=== PATIENT | male | born 1960 | race Caucasian/White ===

== ENCOUNTER 2020-11-08 07:55 | Outpatient (CLI) | payer BC, SELFPAY ==
--- NOTE | ~2020-11-08 | CT_ITS ---
EXAMINATION:CT lung screening DATE: 11/08/2020 08:12 INDICATION: Personal history of tobacco dependence. Current smoker with 54 pack year history. TECHNIQUE: Computed tomography (CT) of the chest was performed without intravenous contrast. Automate d exposure control and iterative reconstruction technique were employed. The dose-length product (DLP ) was 78.99 mGy-cm. COMPARISON: Chest CT 12/14/2017 FINDINGS: There is stable mild scarring at the lung apices. There is mild emphysema. No pleural effus ion. The heart size is normal. There are coronary artery calcifications. No pericardial effusion. The re is a 9 mm cyst in the liver. There is mild thoracic spondylosis. IMPRESSION: 1. Lung-RADS category 2: Benign appearance or behavior. Continue annual screening with noncontrast lo w-dose chest CT in 12 months. Reviewed, dictated and finalized at location A. IMPRESSION: 1. Lung-RADS category 2: Benign appearance or behavior. Continue annual screeni ng with noncontrast low-dose chest CT in 12 months.
== END 2020-11-08 07:56 | disposition home or self-care (01) ==
PROVIDERS: PCP Internal Medicine; Visit Provider Internal Medicine Critical Care Medicine
DX: Z12.2 Encounter for screening for malignant neoplasm of respiratory organs (principal); Z87.891 Personal history of nicotine dependence
CPT/HCPCS: 71271

== ENCOUNTER 2021-11-14 09:18 | Outpatient (CLI) | payer BC, SELFPAY ==
--- NOTE | ~2021-11-14 | CT_ITS ---
EXAMINATION: CT lung screening DATE: 11/14/2021 09:37 INDICATION: Personal history of nicotine dependence, current smoker with 54 pack year history TECHNIQUE: Computed tomography (CT) of the chest was performed without intravenous contrast. The dose -length product (DLP) was 78.93 mGy-cm. Automated exposure control and iterative reconstruction techn ique were employed. COMPARISON: 11/08/2020 FINDINGS: There is mild emphysema. Scarring is noted in the lung apices. The lungs are free of acute opacities. There is mild atelectasis of the lingula. No pleural effusion or pneumothorax is identifie d. No pathologically enlarged thoracic lymph nodes are identified. The heart size is normal. Calcifie d coronary artery atherosclerosis is noted. There is a 9 mm cyst of the liver. There is mild thoracic spondylosis. IMPRESSION: 1. Lung-RADS category 1: Negative. Continue annual screening with noncontrast low-dose chest CT in 12 months. Reviewed, dictated and finalized at location B. IMPRESSION: 1. Lung-RADS category 1: Negative. Continue annual screening with noncontrast l ow-dose chest CT in 12 months.
== END 2021-11-14 09:19 | disposition home or self-care (01) ==
PROVIDERS: PCP Internal Medicine; Visit Provider Nurse Practitioner Family
DX: Z12.2 Encounter for screening for malignant neoplasm of respiratory organs (principal); Z72.0 Tobacco use
CPT/HCPCS: 71271

== ENCOUNTER → 2022-12-02 10:36 | Outpatient (CLI) | payer OTHER, SELFPAY ==
--- NOTE | ~2022-12-02 | CT_ITS ---
CT Scan of the Chest without Contrast: Clinical Indication: Lung cancer screening, personal history of tobacco dependence Technique: Contiguous sections were acquired throughout the chest without intravenous contrast. Dose reduction technique was used on this scan by utilizing automated exposure control and iterative recon struction technique. The dose-length product (DLP) was 60.61 mGy-cm. COMPARISON: 11/14/2021 and 12/14/2017 Findings: There is no evidence of any significant mediastinal, hilar or axillary lymphadenopathy. The mediastin al soft tissues appear normal. There is no evidence of pleural or pericardial effusion. Stable biapical scarring noted. No suspicious pulmonary nodule identified. Images through the upper abdomen reveal no abnormalities. Impression: Lung-RADS1: Negative. [address] advised. Reviewed, dictated and finalized at location . Impression: Lung-RADS1: Negative. [address] advised.
== END ==
PROVIDERS: PCP Family Medicine; Visit Provider Internal Medicine Critical Care Medicine
DX: Z12.2 Encounter for screening for malignant neoplasm of respiratory organs (principal); F17.210 Nicotine dependence, cigarettes, uncomplicated
CPT/HCPCS: 71271

== ENCOUNTER 2023-12-14 02:25 | Emergency (ER) | payer OTHER, SELFPAY ==
[2023-12-14] VITALS (10 sets, daily range): BP systolic 132–151; BP diastolic 75–94; PULSE 104–120; RESP 13–35; TEMP 36.6; O2SAT 93–100
--- NOTE | ~2023-12-14 | XR_ITS ---
EXAMINATION: XR chest 1V portable DATE: 12/14/2023 03:18 INDICATION: Dyspnea. TECHNIQUE: A single frontal view of the chest was obtained on 2 radiographs. COMPARISON: Chest CT 12/14/2023 FINDINGS: There is mild scarring at the lung apices. No pleural effusion or pneumothorax. The heart s ize is normal. IMPRESSION: 1. Mild scarring at the lung apices. Reviewed, dictated and finalized at location E.
--- NOTE | ~2023-12-14 | CT_ITS ---
EXAMINATION: CTA chest PE protocol DATE: 12/14/2023 03:59 INDICATION: Shortness of breath. TECHNIQUE: Computed tomography angiography (CTA) of the chest was performed with 100 mL Omnipaque-350 intravenous contrast timed to evaluate the pulmonary arteries. Coronal maximum intensity projection 3D-reconstructions were created by the technologist. Automated exposure control and iterative reconst ruction technique were employed. The dose-length product was 254.91 mGy-cm. COMPARISON: None. FINDINGS: There is mild scarring at the lung apices. There is mild emphysema. There is mild atelectas is bilaterally. No pleural effusion. The heart size is normal. No pericardial effusion. There is no p ulmonary embolus. There is a small sliding hiatal hernia. There are cysts in the liver measuring up t o 12 mm. There is mild thoracic spondylosis. There is mild chronic anterior wedging of multiple verte bral bodies. IMPRESSION: 1. No pulmonary embolus. 2. Mild emphysema. 3. Small sliding hiatal hernia. Reviewed, dictated and finalized at location E.
--- NOTE | 2023-12-14 02:32 | ECG_ITS ---
SEE SCANNED COPY FOR CONFIRMED REPORT MTDD
[2023-12-14 02:55] LABS: Basophils Percent Auto 0.6 % (0.2-1.2); Eosinophils Absolute Auto 0.1 K/mm3 (0-0.3); Eosinophils Percent Auto 1.8 % (0-4.4); Hematocrit 45.4 % (42.0-52.0); Hemoglobin 15.2 g/dL (14.0-18.0); Immature Granulocyte Absolute 0.04 K/mm3 (0.00-0.031); Immature Granulocyte Percent A 0.6 % (0-0.5); Lymphocytes Absolute Auto 0.89 K/mm3 (0.9-3.2); Lymphocytes Percent Auto 13.2 % (18.3-44.2); Mean Corpuscular HGB Conc 33.5 g/dl (32-36); Mean Corpuscular Hemoglobin 31.1 pg (26-34); Mean Corpuscular Volume 92.8 fl (80-100); Mean Platelet Volume 9.7 fl (7.4-10.4); Monocytes Absolute Auto 0.8 K/mm3 (0.1-0.6); Monocytes Percent Auto 11.6 % (2.6-8.5); Neutrophils Absolute Auto 4.9 K/mm3 (1.3-6.7); Neutrophils Percent Auto 72.2 % (45.5-73.1); Platelet Count Result 168 k/mm3 (150-375); Red Blood Count 4.89 M/mm3 (4.6-6.20); Red Cell Distribution Width 14.1 % (11.5-14.5); White Blood Count 6.7 K/mm3 (4.5-10.0)
[2023-12-14] MEDS: IPRATROPIUM 0.5 MG/ALBUTEROL SULFATE 2.5 MG AMPUL.NEB 3 ML INHALATION (03:02)
[2023-12-14 03:06] LABS: Alanine Aminotransferase 21 U/L (6-50); Alkaline Phosphatase 63 U/L (38-126); Anion Gap 5 mmol/L (4-12); Aspartate Amino Transferase 21 U/L (17-59); Bilirubin,Total 0.5 mg/dL (0.2-1.3); Blood Urea Nitrogen 16 mg/dL (9-20); Calcium 9.7 mg/dL (8.4-10.2); Carbon Dioxide 25 mmol/L (22-30); Chloride 107 mmol/L (98-107); Estimated CRCL calculation 72 ml/min; Estimated Glomerular Filt Rate > 60; Glucose 110 mg/dL (65-110); Magnesium 1.9 mg/dL (1.6-2.3); Potassium 3.9 mmol/L (3.4-5.0); Sodium 137 mmol/L (137-145)
[2023-12-14 03:09] LABS: Lactic Acid Reflex 0.8 mmol/L (0.7-2.0)
[2023-12-14 03:10] LABS: Alveolar/Arterial O2 Gradient 46.8 mmHg; Base Excess ABG -2.4 mEq/l (+/-2.0); Fractional Inspired Oxygen 21 %; HCO3 ABG 19.4 mEq/l (22.0-26.0); Oxygen Content ABG 20.2 %vol (16.0-22.0); Oxygen Saturation ABG 95.4 % (95.0-100.0); Oxyhemoglobin 88.8 % THb (90.0-100.0); PCO2 ABG 27.1 mmHg (35.0-45.0); PO2 ABG 70.5 mmHg (80.0-100.0); PO2 FiO2 Ratio Arterial Blood 3.36 %; Total Hemoglobin 16.2 g/dL (12.0-18.0); pH ABG 7.473 (7.350-7.450)
[2023-12-14 03:12] LABS: Device ROOM AIR; Modified Allen's Test Pass; Site Drawn RIGHT RADIAL
[2023-12-14 03:14] LABS: Partial Thromboplastin Time 32.9 Seconds (22.3-36.8); Prothrombin Time 13.6 Seconds (11.1-14.7)
[2023-12-14 03:17] LABS: NT Pro B Type Natriuretic Pept 45 pg/mL (19.9-100); Troponin I < 0.012 ng/mL (0.000-0.034)
--- NOTE | 2023-12-14 03:27 | ED.GENADULT ---
HPI - General Adult General Chief complaint: Shortness of Breath/Dyspnea Stated complaint: difficulty breathing Time Seen by Provider: 12/14/23 02:29 History of Present Illness HPI narrative: Patient is 61-year-old gentleman presents emergency department with chief complaint shortness of breath. Patient reports that he has history of COPD he also has a remote history of a pulmonary embolism the patient states that he was exposed to some smoke it making machine and since then has had some sinus drainage and has had a cough that has been productive the patient states that he is not having any chest pain with this did reports taking some sinus medication the patient reports this evening he had a coughing fit that was unable to catch his breath afterwards patient was given steroids and breathing treatment by EMS and does report that he started to feel little better. Related Data Home Medications Medication Instructions Recorded Confirmed latanoprost (PF) 0.005 % eye drops 1 drop ophthalmic (eye) DAILY 07/18/19 11/04/23 Allergies Allergy/AdvReac Type Severity Reaction Status Date / Time adhesive tape Allergy Unknown BLISTERS/ Verified 12/14/23 02:32 SKIN PEELING OFF meperidine Allergy Unknown Unknown Verified 12/14/23 02:32 Review of Systems Review of Systems: A 10 system review of systems was completed on the patient and is negative except for what is stated in the HPI. Nursing and ancillary documentation was reviewed. [facility] Past Medical History Medical History Abnormal chest CT COPD (chronic obstructive pulmonary disease) Dyslipidemia Family history of cardiovascular disease GERD (gastroesophageal reflux disease) History of tobacco abuse IBS (irritable bowel syndrome) Lung nodules Overactive bladder Prostate cancer Prostatectomy 2008, with recurrence 2012-treated with radiation Surgical History Surgical History H/O colonoscopy H/O prostatectomy 2008 with recurrence 2011 treated with radiation History of inguinal hernia repair Family History Family History Mother Hypertension Carcinoma of colon, Onset Age: 73 Family history of primary malignant neoplasm of liver Sibling , CVA occurred with CABG Hypertension Family history of diabetes mellitus in first degree relative Family history of renal failure Diabetes mellitus Family history of kidney disease Cerebrovascular accident Father Cerebrovascular accident Acute myocardial infarction Diabetes mellitus Social History Social History Smoking packs per day: 1.5 Smoking cigarettes per day: 30.0 Years smoked: 36 Smoking pack-years: 54.00 Smoking status: Current every day smoker (cutting back to 1 PPD (down from 2 PPD) ) Tobacco type: cigarettes Second hand tobacco smoke exposure: Yes Alcohol intake: current Substance use: never Lack of Transportation: No Lack of Food: Never True Current Housing: I Have Housing Concerned About Future Housing: No Difficulty Paying Gas/Electric Bills: No Difficulty Paying for Meds: No Currently Unemployed: No Education: High School Diploma/GED Difficulty w/ Childcare or Family Care: No Living arrangements: with family Occupation/Education: occupation 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 Gender identity (if verbalized by the patient): Male Agree to blood products: Yes Exam Narrative: GENERAL: Well-appearing, well-nourished, and in no acute distress. HEAD: Normocephalic, atraumatic. EYES: PERRLA and EOMI. ENT: Nares clear, no rhinorrhea or epistaxis. Mucous membranes moist. NECK: Supple. CHEST: Clear to auscultation. No respiratory distress. HEART: Regular
[2023-12-14 03:31] LABS: Influenza A QL RT-PCR Negative (Negative); Influenza B QL RT-PCR Negative (Negative); RSV RNA, RT-PCR Negative (Negative); SARS-CoV-2 RNA PCR Negative (Negative)
[2023-12-14 03:37] LABS: Procalcitonin 0.1 ng/mL
--- NOTE | 2023-12-14 04:51 | PC.NURSE ---
per edp dr. cosme pt oxygen saturation was assessed during ambulation. Upon patient ambulation pt oxygen saturation was 96%. Pt denied chest pressure/ pain or shortness of breath during ambulation. edp dr. cosme made aware. pt ambulated with a steady unassisted gait.
== END 2023-12-14 05:14 | disposition home or self-care (01) ==
PROVIDERS: Emergency Provider Emergency Medicine; PCP Family Medicine
DX: J44.1 Chronic obstructive pulmonary disease with (acute) exacerbation (principal); Z20.822 Contact with and (suspected) exposure to COVID-19; E78.5 Hyperlipidemia, unspecified; K21.9 Gastro-esophageal reflux disease without esophagitis; K58.9 Irritable bowel syndrome, unspecified; N32.81 Overactive bladder; F17.210 Nicotine dependence, cigarettes, uncomplicated; Z85.46 Personal history of malignant neoplasm of prostate; Z86.711 Personal history of pulmonary embolism; Z90.79 Acquired absence of other genital organ(s); I45.10 Unspecified right bundle-branch block; R00.0 Tachycardia, unspecified
CPT/HCPCS: 36415; 36600; 71045; 71275; 80053; 82805; 83605; 83735; 83880; 84145; 84484; 85025; 85610; 85730; 87637; 93005; 94640; 99284; Q9967

== ENCOUNTER 2023-12-25 03:57 | Inpatient (IN) | payer OTHER, SELFPAY ==
[2023-12-25] VITALS (7 sets, daily range): BP systolic 103–134; BP diastolic 62–76; PULSE 80–109; RESP 14–18; TEMP 36.2–37.4; O2SAT 92–99
--- NOTE | ~2023-12-25 | CT_ITS ---
CT of the Abdomen and Pelvis: Indication: Diverticulitis Technique: 2.5 mm axial scans were obtained through the abdomen and pelvis following intravenous adm inistration of 100 cc of Omnipaque 350. Dose reduction technique was used on this scan by utilizing a utomated exposure control and iterative reconstruction technique. The dose-length product (DLP) was 2 62.57 mGy-cm. COMPARISON: 12/25/2023 Findings: Scans through the lung bases are unremarkable. Scattered small hepatic cysts are present. The spleen, pancreas, gallbladder, adrenals and kidneys ar e within normal limits. There are atherosclerotic calcifications of the aorta. No lymphadenopathy. Again identified is wall thickening of the distal sigmoid colon/proximal rectum with pericolonic infl ammatory change. There are small bubbles of free air likely (axial image 148 [id number]), compatible with pr obable microperforation. No abscess or bowel obstruction. Images through the pelvis were performed. Urinary bladder unremarkable. Status post prostatectomy. No pelvic mass seen. Impression: Findings again suggestive of distal sigmoid diverticulitis, now with small bubbles of free air locall y, compatible with interval microperforation. No abscess or bowel obstruction. Ischemic bowel remains a potential alternative diagnostic consideration. Reviewed, dictated and finalized at [facility]. Impression: Findings again suggestive of distal sigmoid diverticulitis, now with small bubb les of free air locally, compatible with interval microperforation. No abscess or bowel obstruction. Ischemic bowel remains a potential alternative diagnostic consideration.
--- NOTE | ~2023-12-25 | CT_ITS ---
CT of the Abdomen and Pelvis: Indication: Abdominal pain Technique: 2.5 mm axial scans were obtained through the abdomen and pelvis following intravenous adm inistration of 100 cc of Omnipaque 350. Dose reduction technique was used on this scan by utilizing a utomated exposure control and iterative reconstruction technique. The dose-length product (DLP) was 2 79.93 mGy-cm. Findings: Scans through the lung bases are unremarkable. Several small hepatic cysts are present. The spleen, pancreas, gallbladder, adrenals and kidneys are within normal limits. There are atherosclerotic calcifications of the aorta. No lymphadenopathy. There is probable mild wall thickening and mild pericolonic inflammatory change of the sigmoid colon. Several small bubbles of intravascular air present, likely within venous structures (axial image 46, 101).. Images through the pelvis were performed. Urinary bladder unremarkable. Status post prostatectomy. No pelvic mass seen. No ascites. Impression: Wall thickening and mild pericolonic infiltrative changes; several small bubbles of intravenous air i n the abdomen. Correlate for diverticulitis versus possibility of ischemic bowel. Reviewed, dictated and finalized at location . Impression: Wall thickening and mild pericolonic infiltrative changes; several small bubble s of intravenous air in the abdomen. Correlate for diverticulitis versus possib ility of ischemic bowel.
[2023-12-25] MEDS: ONDANSETRON INJ 4 MG/2 ML VIAL IV PUSH (04:34)
[2023-12-25] MEDS: SODIUM CHLORIDE 0.9% IV 1,000 ML 999 ML IV CONT (04:34)
[2023-12-25] MEDS: HYDROmorphone HCL INJ (*CRX) 1 MG/ML SYR IV PUSH ×2 (04:34→12:22)
--- NOTE | 2023-12-25 04:43 | ED.GENADULT ---
HPI - General Adult General Chief complaint: Abdominal Pain Stated complaint: abdominal pain, diarrhea Time Seen by Provider: 12/25/23 04:05 History of Present Illness HPI narrative: patient is a 63-year-old gentleman who presents emergency department with chief complaint of abdominal pain. Patient reports that yesterday started having pain throughout his abdomen patient reports that he has had some diarrhea with this as well the patient reports that he has had a prior history of pancreatitis and also prior history of hernia repair. The patient reports the pain is not improved by anything and reports that it is worsened by move Related Data Home Medications Medication Instructions Recorded Confirmed latanoprost (PF) 0.005 % eye drops 1 drop ophthalmic (eye) DAILY 07/18/19 12/21/23 Allergies Allergy/AdvReac Type Severity Reaction Status Date / Time adhesive tape Allergy Unknown BLISTERS/ Verified 12/21/23 09:51 SKIN PEELING OFF meperidine Allergy Unknown Unknown Verified 12/21/23 09:51 morphine Allergy Itching Verified 12/25/23 05:59 Review of Systems Review of Systems: A 10 system review of systems was completed on the patient and is negative except for what is stated in the HPI. Nursing and ancillary documentation was reviewed. [facility] Past Medical History Medical History Abnormal chest CT COPD (chronic obstructive pulmonary disease) Dyslipidemia Family history of cardiovascular disease GERD (gastroesophageal reflux disease) History of tobacco abuse IBS (irritable bowel syndrome) Lung nodules Overactive bladder Prostate cancer Prostatectomy 2008, with recurrence 2011-treated with radiation Surgical History Surgical History H/O colonoscopy H/O prostatectomy 2008 with recurrence 2011 treated with radiation History of inguinal hernia repair Family History Family History Mother Hypertension Carcinoma of colon, Onset Age: 73 Family history of primary malignant neoplasm of liver Sibling , CVA occurred with CABG Hypertension Family history of diabetes mellitus in first degree relative Family history of renal failure Diabetes mellitus Family history of kidney disease Cerebrovascular accident Father Cerebrovascular accident Acute myocardial infarction Diabetes mellitus Social History Social History Smoking packs per day: 1.5 Smoking cigarettes per day: 30.0 Years smoked: 36 Smoking pack-years: 54.00 Smoking status: Current every day smoker (cutting back to 1 PPD (down from 2 PPD) ) Tobacco type: cigarettes Second hand tobacco smoke exposure: Yes Alcohol intake: current Substance use: never Lack of Transportation: No Lack of Food: Never True Current Housing: I Have Housing Concerned About Future Housing: No Difficulty Paying Gas/Electric Bills: No Difficulty Paying for Meds: No Currently Unemployed: No Education: High School Diploma/GED Difficulty w/ Childcare or Family Care: No Living arrangements: with family Occupation/Education: occupation 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 HEAD: Normocephalic, atraumatic. EYES: PERRLA and EOMI. ENT: Nares clear, no rhinorrhea or epistaxis. Mucous membranes moist. NECK: Supple. CHEST: Clear to auscultation. No respiratory distress. HEART: Regular rate and rhythm. No murmur heard. Normal peripheral pulses. ABDOMEN: Soft, diffusely tender to palpation, nondistended, normal active bowel sounds. EXTREMITIES: Normal range of motion
[2023-12-25 04:49] LABS: Basophils Absolute Auto 0.1 K/mm3 (0.0-0.1); Basophils Percent Auto 0.5 % (0.2-1.2); Eosinophils Absolute Auto 0.1 K/mm3 (0-0.3); Eosinophils Percent Auto 1.1 % (0-4.4); Hemoglobin 14.2 g/dL (14.0-18.0); Immature Granulocyte Absolute 0.21 K/mm3 (0.00-0.031); Immature Granulocyte Percent A 1.6 % (0-0.5); Lymphocytes Absolute Auto 0.98 K/mm3 (0.9-3.2); Lymphocytes Percent Auto 7.6 % (18.3-44.2); Mean Corpuscular HGB Conc 33.8 g/dl (32-36); Mean Corpuscular Hemoglobin 31.1 pg (26-34); Mean Corpuscular Volume 91.9 fl (80-100); Mean Platelet Volume 10.3 fl (7.4-10.4); Monocytes Absolute Auto 1.4 K/mm3 (0.1-0.6); Monocytes Percent Auto 10.6 % (2.6-8.5); Neutrophils Absolute Auto 10.2 K/mm3 (1.3-6.7); Neutrophils Percent Auto 78.6 % (45.5-73.1); Platelet Count Result 155 k/mm3 (150-375); Red Blood Count 4.57 M/mm3 (4.6-6.20); Red Cell Distribution Width 13.8 % (11.5-14.5)
[2023-12-25 04:55] LABS: Appearance Urine Clear (Clear); Bacteria Urine None Seen /hpf; Bilirubin Urine 1+ (Negative); Blood Urine Negative (Negative); Color Urine Dark Yellow (Yellow); Glucose Urine UA Negative (Negative); Ketones Urine Trace mg/dL (Negative); Leukocyte Esterase Ur Negative LEU/UL (Negative); Nitrate Urine Negative (Negative); Non Pathogenic Casts 0-2; Protein Urine 1+ mg/dL (Negative); RBC Urine 0-2 /hpf (0-2); Specific Grav Ur 1.027 (1.001-1.035); Squamous Epithelial Cell Urine None Seen /hpf (Few); WBC Urine 0-5 /hpf (0-3)
[2023-12-25 05:03] LABS: Alanine Aminotransferase 35 U/L (6-50); Albumin Level 3.4 g/dL (3.5-5.1); Alkaline Phosphatase 80 U/L (38-126); Anion Gap 5 mmol/L (4-12); Aspartate Amino Transferase 22 U/L (17-59); Bilirubin,Total 0.9 mg/dL (0.2-1.3); Blood Urea Nitrogen 13 mg/dL (9-20); Calcium 8.7 mg/dL (8.4-10.2); Carbon Dioxide 22 mmol/L (22-30); Chloride 106 mmol/L (98-107); Estimated CRCL calculation 77 ml/min; Estimated Glomerular Filt Rate > 60; Glucose 126 mg/dL (65-110); Lipase 131 U/L (23-300); Potassium 3.7 mmol/L (3.4-5.0); Sodium 133 mmol/L (137-145)
[2023-12-25 05:04] LABS: Prothrombin Time 13.6 Seconds (11.1-14.7)
[2023-12-25 05:05] LABS: Partial Thromboplastin Time 35.9 Seconds (22.3-36.8)
[2023-12-25 05:07] LABS: Add Urine Microscopic? YES
[2023-12-25 05:27] LABS: Procalcitonin 0.9 ng/mL
[2023-12-25] MEDS: PIPERACILLN/TAZ 3.375GM/NS50ML 3.375 GM/50 ML BAG IVPB ×3 (06:20→18:07)
[2023-12-25 06:58] LABS: Lactic Acid Reflex 0.7 mmol/L (0.7-2.0)
--- NOTE | 2023-12-25 08:50 | ADMGEN ---
This patient, Mike Schwarz, was admitted to [facility] Surg Room 307-02. Patient/family oriented to hospital policies and general routines including ID bracelet, bed and alarms, visiting hours, pain management, procedures, bathroom and other care routines, personal items, smoking policy, room service/diet, and visiting hours. Information on how to activate the Rapid Response Team has been discussed. Patient/Family are encouraged to report perceived risks to care and to ask questions if they do not understand what they are told or what they should do.
[2023-12-25] MEDS: SODIUM CHLORIDE 0.9% IV 1,000 ML 125 ML IV CONT ×2 (10:13→16:37)
--- NOTE | 2023-12-25 15:10 | PM.IMHP ---
H&P: HPI History of Present Illness Date/Time: 12/25/23 15:10 Chief Complaint: Loose brown diarrhea 5 times and abdominal pain Narrative: 63-year-old male with past medical history GERD, active tobacco abuse, lipidemia, COPD, pancreatitis, history of PE, irritable bowel syndrome, prostate cancer status post prostatectomy who presents with generalized abdominal pain and diarrhea x5. Characterize as loose and brown. He has not had C diff before. He treats his IBS with Bentyl. He reported his abdominal pain is crampy and diffuse and severe day prior to admission since he has been here it is only a 2/10. In [place] [facility] he received morphine 4 mg IV x1 along with a normal saline bolus 1 L and Zofran and Dilaudid 1 mg IV x1 and a dose of Zosyn. General surgery was consulted. Leukocytosis with a white count of 13.0 with left shift. His Chem 7 and INR was not remarkable. Lipase 131 and procalcitonin 0.9. His UA was not remarkable as well. A quad viral screen on 12/13 when he presented to [facility] with shortness of breath was negative. That time he had a chest CT and there was no PE. On this admission in the ER a CT abdomen pelvis with IV contrast demonstrated wall thickening and mild pericolonic infiltrative changes suggestive of either diverticulitis versus ischemic bowel. Review of Systems Review of Systems: All systems reviewed & are unremarkable except as noted in HPI and below (Subjective) [facility] Past Medical History Medical History Abnormal chest CT COPD (chronic obstructive pulmonary disease) Dyslipidemia Family history of cardiovascular disease GERD (gastroesophageal reflux disease) History of tobacco abuse IBS (irritable bowel syndrome) Lung nodules Overactive bladder Prostate cancer Prostatectomy 2008, with recurrence 2011-treated with radiation Surgical History Surgical History H/O colonoscopy H/O prostatectomy 2008 with recurrence 2011 treated with radiation History of inguinal hernia repair Family History Family History Mother Hypertension Carcinoma of colon, Onset Age: 73 Family history of primary malignant neoplasm of liver Sibling , CVA occurred with CABG Hypertension Family history of diabetes mellitus in first degree relative Family history of renal failure Diabetes mellitus Family history of kidney disease Cerebrovascular accident Father Cerebrovascular accident Acute myocardial infarction Diabetes mellitus Social History Social History Smoking packs per day: 1 Smoking cigarettes per day: 20.0 Years smoked: 47 Smoking pack-years: 47.00 Smoking status: Current every day smoker Tobacco type: cigarettes Second hand tobacco smoke exposure: Yes Alcohol intake: current Substance use: never Do You Feel Safe in your Home?: Yes Lack of Transportation: No Lack of Food: Never True Current Housing: I Have Housing Concerned About Future Housing: No Difficulty Paying Gas/Electric Bills: No Difficulty Paying for Meds: No Currently Unemployed: No Education: Decline to Answer Difficulty w/ Childcare or Family Care: No Living arrangements: with family Occupation/Education: occupation 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
--- NOTE | 2023-12-25 17:13 | PM.CNGS ---
Assessment and Plan Assessment and plan (1) Diverticulitis: Code(s): K57.92 - Diverticulitis of intestine, part unspecified, without perforation or abscess without bleeding Status: Acute Assessment and Plan: I have reviewed the CT and discussed findings with the patient. He has evidence of diverticulitis on the CT. He is already feeling better after some fluid hydration and starting antibiotics. Will start patient on clear liquids and continue monitoring with serial abdominal exams. Will repeat CBC in the morning. Discussed with patient that there are no signs of him requiring emergent surgery at this time but symptoms can at times progress and require more urgent intervention. If improving tomorrow, can probably start slowly advancing diet. Will continue to follow. (2) Tobacco abuse: Code(s): Z72.0 - Tobacco use Status: Acute (3) COPD (chronic obstructive pulmonary disease): Qualifiers: COPD type: unspecified COPD Qualified Code(s): J44.9 - Chronic obstructive pulmonary disease, unspecified Code(s): J44.9 - Chronic obstructive pulmonary disease, unspecified Status: Acute History of Present Illness Consult details Consult date: 12/25/23 Reason for consult: other (diverticulitis) Requesting physician: Neal Dorantes MD Narrative: This is a 63-year-old man who presented to the emergency department today with lower abdominal pain that started yesterday. He states that he started out with diarrhea and then the left lower quadrant abdominal pain started shortly after. The diarrhea has now subsided but the pain this morning was very severe therefore he came to the emergency department. He denies eating anything they could cause the diarrhea. He has never had any symptoms like this in the past. In the emergency department he was noted to have an elevated white blood count and CT showed evidence inflammatory stranding or sigmoid colon suggesting diverticulitis or ischemic colitis. He was admitted for further treatment. The patient states that his symptoms are somewhat improved already. He denies any fevers, chills, nausea, or vomiting. Review of Systems Review of Systems: All systems reviewed & are unremarkable except as noted in HPI and below Constitutional: Constitutional: Reports as per HPI Eyes: Eyes: Denies change in vision ENT: Denies hearing loss, Denies neck pain and Denies sore throat Cardiovascular: Cardiovascular: Denies chest pain and Denies dyspnea Respiratory: Respiratory: Denies cough, Denies dyspnea and Denies wheezing Gastrointestinal: Gastrointestinal: Reports as per HPI Genitourinary: Genitourinary: Denies hematuria and Denies dysuria Musculoskeletal: Musculoskeletal: Denies arthralgias, Denies joint swelling and Denies neck pain Allergic/Immunologic: Allergic/Immunologic: Denies wheezing [facility] Past Medical History Medical History Abnormal chest CT COPD (chronic obstructive pulmonary disease) Dyslipidemia Family history of cardiovascular disease GERD (gastroesophageal reflux disease) History of tobacco abuse IBS (irritable bowel syndrome) Lung nodules Overactive bladder Prostate cancer Prostatectomy 2008, with recurrence 2012-treated with radiation Surgical History Surgical History H/O colonoscopy H/O prostatectomy 2008 with recurrence 2011 treated with radiation History of inguinal hernia repair Family History Family History Mother Hypertension Carcinoma of colon, Onset Age: 73 Family history of primary malignant neoplasm of liver Sibling , CVA occurred with CABG Hypertension Family history of diabetes mellitus in first degree relative Family history of renal failure Diabetes mellitus Family history of kidney disease Cerebrovascular
[2023-12-26] MEDS: SODIUM CHLORIDE 0.9% IV 1,000 ML 125 ML IV CONT ×2 (02:37→13:53)
[2023-12-26] MEDS: PIPERACILLN/TAZ 3.375GM/NS50ML 3.375 GM/50 ML BAG IVPB ×4 (02:37→18:20)
[2023-12-26 05:10] VITALS: BP 126/68; PULSE 93; RESP 16; TEMP 36.4; O2SAT 96
[2023-12-26] MEDS: HYDROmorphone HCL INJ (*CRX) 1 MG/ML SYR IV PUSH ×3 (05:44→21:07)
[2023-12-26 06:24] LABS: Basophils Absolute Auto 0.1 K/mm3 (0.0-0.1); Basophils Percent Auto 0.5 % (0.2-1.2); Eosinophils Absolute Auto 0.1 K/mm3 (0-0.3); Hematocrit 38.6 % (42.0-52.0); Hemoglobin 12.8 g/dL (14.0-18.0); Immature Granulocyte Absolute 0.18 K/mm3 (0.00-0.031); Immature Granulocyte Percent A 1.5 % (0-0.5); Lymphocytes Percent Auto 12.6 % (18.3-44.2); Mean Corpuscular HGB Conc 33.2 g/dl (32-36); Mean Corpuscular Hemoglobin 30.8 pg (26-34); Mean Corpuscular Volume 92.8 fl (80-100); Mean Platelet Volume 10.3 fl (7.4-10.4); Monocytes Absolute Auto 1.3 K/mm3 (0.1-0.6); Monocytes Percent Auto 10.8 % (2.6-8.5); Neutrophils Absolute Auto 8.8 K/mm3 (1.3-6.7); Neutrophils Percent Auto 73.6 % (45.5-73.1); Platelet Count Result 155 k/mm3 (150-375); Red Blood Count 4.16 M/mm3 (4.6-6.20); Red Cell Distribution Width 13.6 % (11.5-14.5); White Blood Count 11.9 K/mm3 (4.5-10.0)
[2023-12-26 06:48] LABS: Anion Gap 6 mmol/L (4-12); Blood Urea Nitrogen 8 mg/dL (9-20); Calcium 8.2 mg/dL (8.4-10.2); Carbon Dioxide 22 mmol/L (22-30); Chloride 107 mmol/L (98-107); Estimated CRCL calculation 77 ml/min; Estimated Glomerular Filt Rate > 60; Glucose 99 mg/dL (65-110); Magnesium 1.8 mg/dL (1.6-2.3); Potassium 3.3 mmol/L (3.4-5.0); Sodium 135 mmol/L (137-145)
[2023-12-26 07:08] LABS: Procalcitonin 0.5 ng/mL
[2023-12-26] MEDS: POTASSIUM CHLORIDE 20 MEQ PACKET (FOR LIQUID) 40 MEQ PO (09:27)
[2023-12-26] MEDS: PANTOPRAZOLE SODIUM IV 40 MG VIAL IV PUSH (09:27)
--- NOTE | 2023-12-26 13:16 | PM.PNGS ---
Progress Note: A&P Assessment and Plan (1) Diverticulitis: Code(s): K57.92 - Diverticulitis of intestine, part unspecified, without perforation or abscess without bleeding Status: Acute Assessment and Plan: Advance to full liquids. Continue Zosyn. No signs of peritonitis on exam. No surgical intervention needed unless clinical picture changes. (2) Tobacco abuse: Code(s): Z72.0 - Tobacco use Status: Acute (3) COPD (chronic obstructive pulmonary disease): Qualifiers: COPD type: unspecified COPD Qualified Code(s): J44.9 - Chronic obstructive pulmonary disease, unspecified Code(s): J44.9 - Chronic obstructive pulmonary disease, unspecified Status: Acute Subjective Subjective Date/Time Seen: 12/26/23 13:16 Interval history: Patient denies abdominal pain. Passing flatus. No fevers. Exam GI: Inspection: non-distended GI Palp: Yes Soft to palpation, No Tenderness to palpation present (GI) and No Guarding due to palpation present (GI) Objective Data Vital Signs Vital Signs: Vital Signs - 24 hr 12/25/23 14:00 12/25/23 20:19 12/25/23 20:00 Temperature 37.4 C 36.3 C L Pulse Rate 104 H 109 H Respiratory Rate 18 16 Blood Pressure 123/62 133/66 Pulse Oximetry 96 94 Oxygen Delivery Room Air 12/26/23 05:10 12/26/23 08:00 Temperature 36.4 C L Pulse Rate 93 Respiratory Rate 16 Blood Pressure 126/68 Pulse Oximetry 96 Oxygen Delivery Room Air Intake/Output Intake/Output: Intake & Output 12/23/23 12/24/23 12/25/23 12/26/23 23:59 23:59 23:59 23:59 Intake Total 1950.0 1530 Output Total 600 725 Balance 1350.0 805 Meds/Results Medications: Active Medications Generic Name Dose Route Start Last Admin Trade Name Freq PRN Reason Stop Dose Admin Albuterol 1 - 2 puff 12/26/23 07:18 Albuterol Sulfate (*Sp) Aerosol 1 Puff INHALATION Q4-6H PRN shortness of breath or wheezing Hydromorphone HCl 1 mg 12/25/23 06:08 12/26/23 05:44 Hydromorphone Hcl Inj (*Crx) 1 Mg/Ml Syr IV PUSH 1 mg Q4H PRN Administration Pain Rated 7-10 Piperacillin/Tazobactam/Dextrose 3.375 gm in 50 mls @ 100 mls/hr 12/25/23 12:00 12/26/23 05:38 Zosyn 3.375 Gm/Ns 50 Ml IVPB 100 mls/hr Q6H VICENTE Administration Sodium Chloride 1,000 mls @ 125 mls/hr 12/25/23 06:10 12/26/23 05:38 Normal Saline Iv IV CONT Not Given .Q8H VICENTE Latanoprost 1 drop 12/26/23 21:00 Latanoprost 0.005% Op Soln 2.5 Ml Btl EACH EYE HS VICENTE Ondansetron HCl 4 mg 12/25/23 06:08 Ondansetron Inj 4 Mg/2 Ml Vial IV PUSH Q4H PRN Nausea Pantoprazole Sodium 40 mg 12/26/23 09:00 12/26/23 09:27 Pantoprazole Sodium Iv 40 Mg Vial IV PUSH 40 mg QAM VICENTE Administration Radiology Results: ITS Impressions Abdomen/Pelvis CT 12/25/23 05:46 Impression: Wall thickening and mild pericolonic infiltrative changes; several small bubbles of intravenous air in the abdomen. Correlate for diverticulitis versus possibility of ischemic bowel. Labs Labs: Laboratory Results - last 24 hr 12/26/23 12/26/23 05:59 06:00 WBC 11.9 H RBC 4.16 L Hgb 12.8 L Hct 38.6 L MCV 92.8 MCH 30.8 MCHC 33.2 RDW 13.6 Plt Count 155 MPV 10.3 Immature Gran % (Auto) 1.5 H Neut % (Auto) 73.6 H Lymph % (Auto) 12.6 L [place] % (Auto) 10.8 H Eos % (Auto) 1.0 Baso % (Auto) 0.5 Lymph # (Auto) 1.50 [place] # (Auto) 1.3 H Eos # (Auto) 0.1 Baso # (Auto) 0.1 Abs Immat Gran (auto) 0.18 H Absolute Neuts (auto) 8.8 H Absolute Nucleated RBC 0.000 Nucleated RBC % 0.0 Sodium 135 L Potassium 3.3 L Chloride 107 Carbon Dioxide 22 Anion Gap 6 BUN 8 L D Creatinine 0.80 Estim Creat Clear Calc 77 Estimated GFR > 60 Glucose 99 Calcium 8.2 L Magnesium 1.8 Procalcitonin 0.5
--- NOTE | 2023-12-26 13:35 | PM.IMPN ---
Progress Note: A&P Assessment and Plan (1) Diverticulitis: Code(s): K57.92 - Diverticulitis of intestine, part unspecified, without perforation or abscess without bleeding Status: Acute Assessment and Plan: improving with Zosyn and bowel rest (2) COPD (chronic obstructive pulmonary disease): Qualifiers: COPD type: unspecified COPD Qualified Code(s): J44.9 - Chronic obstructive pulmonary disease, unspecified Code(s): J44.9 - Chronic obstructive pulmonary disease, unspecified Status: Acute Assessment and Plan: at baseline per history (3) Tobacco abuse: Code(s): Z72.0 - Tobacco use Status: Acute Assessment and Plan: declines nicotine replacement Subjective Date/time seen: 12/26/23 13:35 Interval history: denied abdominal discomfort. Passing gas. Denied nausea or vomiting. Tolerating clear liquids. Denied fevers or chills. Denied chest pain or shortness of breath. Does have chronic cough which she relates to his chronic cigarette use. Denies need for nicotine replacement Review of Systems Review of Systems: All systems reviewed & are unremarkable except as noted in HPI and below Exam Narrative: HEENT: PERRL, sclerae nonicteric, pharyngeal mucosa pink and intact NECK: No JVD CHEST: Coarse BS. Normal effort. HEART: NL S1/S2, regular, no murmur ABDOMEN: BS+, soft, nontender, no mass, no bruits EXTREMITIES: No cyanosis, edema, or clubbing NEUROLOGIC: CN intact and symmetric to inspection. MUSCULOSKELETAL: Tone and strength symmetric. PSYCH: Alert. Oriented to person, place, and time. Objective Data Vital Signs Vital Signs: Vital Signs - 24 hr 12/25/23 14:00 12/25/23 20:19 12/25/23 20:00 Temperature 99.4 F 97.3 F L Pulse Rate 104 H 109 H Respiratory Rate 18 16 Blood Pressure 123/62 133/66 Pulse Oximetry 96 94 Oxygen Delivery Room Air 12/26/23 05:10 12/26/23 08:00 Temperature 97.5 F L Pulse Rate 93 Respiratory Rate 16 Blood Pressure 126/68 Pulse Oximetry 96 Oxygen Delivery Room Air Intake/Output Intake/Output: Intake & Output 12/23/23 12/24/23 12/25/23 12/26/23 23:59 23:59 23:59 23:59 Intake Total 1950.0 1530 Output Total 600 725 Balance 1350.0 805 Meds/Results Medications: Active Medications Generic Name Dose Route Start Last Admin Trade Name Freq PRN Reason Stop Dose Admin Albuterol 1 - 2 puff 12/26/23 07:18 Albuterol Sulfate (*Sp) Aerosol 1 Puff INHALATION Q4-6H PRN shortness of breath or wheezing Hydromorphone HCl 1 mg 12/25/23 06:08 12/26/23 05:44 Hydromorphone Hcl Inj (*Crx) 1 Mg/Ml Syr IV PUSH 1 mg Q4H PRN Administration Pain Rated 7-10 Piperacillin/Tazobactam/Dextrose 3.375 gm in 50 mls @ 100 mls/hr 12/25/23 12:00 12/26/23 05:38 Zosyn 3.375 Gm/Ns 50 Ml IVPB 100 mls/hr Q6H VICENTE Administration Sodium Chloride 1,000 mls @ 125 mls/hr 12/25/23 06:10 12/26/23 05:38 Normal Saline Iv IV CONT Not Given .Q8H VICENTE Latanoprost 1 drop 12/26/23 21:00 Latanoprost 0.005% Op Soln 2.5 Ml Btl EACH EYE HS VICENTE Ondansetron HCl 4 mg 12/25/23 06:08 Ondansetron Inj 4 Mg/2 Ml Vial IV PUSH Q4H PRN Nausea Pantoprazole Sodium 40 mg 12/26/23 09:00 12/26/23 09:27 Pantoprazole Sodium Iv 40 Mg Vial IV PUSH 40 mg QAM VICENTE Administration Radiology Results: ITS Impressions Abdomen/Pelvis CT 12/25/23 05:46 Impression: Wall thickening and mild pericolonic infiltrative changes; several small bubbles of intravenous air in the abdomen. Correlate for diverticulitis versus possibility of ischemic bowel. Labs Labs: Laboratory Results - last 24 hr 12/26/23 12/26/23 05:59 06:00 WBC 11.9 H RBC 4.16 L Hgb 12.8 L Hct 38.6 L MCV 92.8 MCH 30.8 MCHC 33.2 RDW 13.6 Plt Count 155 MPV 10.3 Immature Gran % (Auto) 1.5 H Neut % (Auto) 73.6 H Lymph % (Auto) 12.6 L
[2023-12-26 14:00] VITALS: BP 126/65; PULSE 100; RESP 16; TEMP 37.3; O2SAT 96
[2023-12-26] MEDS: LATANOPROST 0.005% OP SOLN 2.5 ML BTL 1 DROP EACH EYE (21:08)
[2023-12-26 21:42] VITALS: BP 122/63; PULSE 96; RESP 18; TEMP 37.3; O2SAT 96
[2023-12-27] MEDS: PIPERACILLN/TAZ 3.375GM/NS50ML 3.375 GM/50 ML BAG IVPB ×4 (00:41→18:38)
[2023-12-27] MEDS: SODIUM CHLORIDE 0.9% IV 1,000 ML 125 ML IV CONT ×3 (00:47→18:38)
[2023-12-27] MEDS: HYDROmorphone HCL INJ (*CRX) 1 MG/ML SYR IV PUSH ×3 (00:50→18:36)
[2023-12-27 05:31] LABS: Hematocrit 38.2 % (42.0-52.0); Hemoglobin 12.4 g/dL (14.0-18.0); Mean Corpuscular HGB Conc 32.5 g/dl (32-36); Mean Corpuscular Hemoglobin 30.2 pg (26-34); Mean Corpuscular Volume 92.9 fl (80-100); Mean Platelet Volume 10.2 fl (7.4-10.4); Platelet Count Result 191 k/mm3 (150-375); Red Blood Count 4.11 M/mm3 (4.6-6.20); Red Cell Distribution Width 13.3 % (11.5-14.5); White Blood Count 12.5 K/mm3 (4.5-10.0)
[2023-12-27 05:41] LABS: Anion Gap 3 mmol/L (4-12); Blood Urea Nitrogen 7 mg/dL (9-20); Calcium 8.4 mg/dL (8.4-10.2); Carbon Dioxide 26 mmol/L (22-30); Chloride 105 mmol/L (98-107); Estimated CRCL calculation 77 ml/min; Estimated Glomerular Filt Rate > 60; Glucose 99 mg/dL (65-110); Potassium 3.9 mmol/L (3.4-5.0); Sodium 134 mmol/L (137-145)
[2023-12-27 06:00] VITALS: BP 121/60; PULSE 91; RESP 16; TEMP 36.8; O2SAT 97
[2023-12-27] MEDS: PANTOPRAZOLE SODIUM IV 40 MG VIAL IV PUSH (08:50)
--- NOTE | 2023-12-27 13:41 | PM.PNGS ---
Progress Note: A&P Assessment and Plan (1) Diverticulitis: Code(s): K57.92 - Diverticulitis of intestine, part unspecified, without perforation or abscess without bleeding Status: Acute Assessment and Plan: Tolerating solid diet, but still getting intermittent abdominal pain. Continue Zosyn. White blood count still slightly elevated, patient still having symptoms, not completely resolved. Will get repeat CT tomorrow morning. (2) Tobacco abuse: Code(s): Z72.0 - Tobacco use Status: Acute (3) COPD (chronic obstructive pulmonary disease): Qualifiers: COPD type: unspecified COPD Qualified Code(s): J44.9 - Chronic obstructive pulmonary disease, unspecified Code(s): J44.9 - Chronic obstructive pulmonary disease, unspecified Status: Acute Subjective Subjective Date/Time Seen: 12/27/23 13:41 Interval history: Patient continues to get some lower abdominal cramping abdominal pain. Passing flatus. No BM. Afebrile. Exam GI: Inspection: non-distended GI Palp: Yes Soft to palpation, Yes Tenderness to palpation present (GI) (Mild left lower quadrant), No Guarding due to palpation present (GI) and No Rebound tenderness present Auscultation: normal bowel sounds Objective Data Vital Signs Vital Signs: Vital Signs - 24 hr 12/26/23 14:00 12/26/23 21:42 12/26/23 21:10 Temperature 37.3 C 37.3 C Pulse Rate 100 96 Respiratory Rate 16 18 Blood Pressure 126/65 122/63 Pulse Oximetry 96 96 Oxygen Delivery Room Air 12/27/23 06:00 12/27/23 08:50 Temperature 36.8 C Pulse Rate 91 Respiratory Rate 16 Blood Pressure 121/60 Pulse Oximetry 97 Oxygen Delivery Room Air Intake/Output Intake/Output: Intake & Output 12/24/23 12/25/23 12/26/23 12/27/23 23:59 23:59 23:59 23:59 Intake Total 1950.0 4660 1840 Output Total 600 1575 1925 Balance 1350.0 3085 -85 Meds/Results Medications: Active Medications Generic Name Dose Route Start Last Admin Trade Name Freq PRN Reason Stop Dose Admin Albuterol 1 - 2 puff 12/26/23 07:18 Albuterol Sulfate (*Sp) Aerosol 1 Puff INHALATION Q4-6H PRN shortness of breath or wheezing Hydromorphone HCl 1 mg 12/25/23 06:08 12/27/23 12:24 Hydromorphone Hcl Inj (*Crx) 1 Mg/Ml Syr IV PUSH 1 mg Q4H PRN Administration Pain Rated 7-10 Piperacillin/Tazobactam/Dextrose 3.375 gm in 50 mls @ 100 mls/hr 12/25/23 12:00 12/27/23 12:27 Zosyn 3.375 Gm/Ns 50 Ml IVPB 100 mls/hr Q6H VICENTE Administration Sodium Chloride 1,000 mls @ 125 mls/hr 12/25/23 06:10 12/27/23 08:50 Normal Saline Iv IV CONT 125 mls/hr .Q8H VICENTE Administration Latanoprost 1 drop 12/26/23 21:00 12/26/23 21:08 Latanoprost 0.005% Op Soln 2.5 Ml Btl EACH EYE 1 drop HS VICENTE Administration Ondansetron HCl 4 mg 12/25/23 06:08 Ondansetron Inj 4 Mg/2 Ml Vial IV PUSH Q4H PRN Nausea Pantoprazole Sodium 40 mg 12/26/23 09:00 12/27/23 08:50 Pantoprazole Sodium Iv 40 Mg Vial IV PUSH 40 mg QAM VICENTE Administration Radiology Results: ITS Impressions Abdomen/Pelvis CT 12/25/23 05:46 Impression: Wall thickening and mild pericolonic infiltrative changes; several small bubbles of intravenous air in the abdomen. Correlate for diverticulitis versus possibility of ischemic bowel. Labs Labs: Laboratory Results - last 24 hr 12/27/23 04:45 WBC 12.5 H RBC 4.11 L Hgb 12.4 L Hct 38.2 L MCV 92.9 MCH 30.2 MCHC 32.5 RDW 13.3 Plt Count 191 MPV 10.2 Sodium 134 L Potassium 3.9 Chloride 105 Carbon Dioxide 26 Anion Gap 3 L BUN 7 L Creatinine 0.80 Estim Creat Clear Calc 77 Estimated GFR > 60 Glucose 99 Calcium 8.4
[2023-12-27 14:00] VITALS: BP 108/68; PULSE 91; RESP 20; TEMP 36.4; O2SAT 96
--- NOTE | 2023-12-27 16:18 | PM.IMPN ---
Progress Note: A&P Assessment and Plan (1) Diverticulitis: Code(s): K57.92 - Diverticulitis of intestine, part unspecified, without perforation or abscess without bleeding Status: Acute Assessment and Plan: Continue Zosyn WBC 12/24 13.0, 12/25 12.6, 12/[address] A/p 12/27 (2) COPD (chronic obstructive pulmonary disease): Qualifiers: COPD type: unspecified COPD Qualified Code(s): J44.9 - Chronic obstructive pulmonary disease, unspecified Code(s): J44.9 - Chronic obstructive pulmonary disease, unspecified Status: Acute Assessment and Plan: at baseline per history (3) Tobacco abuse: Code(s): Z72.0 - Tobacco use Status: Acute Assessment and Plan: declines nicotine replacement Subjective Date/time seen: 12/27/23 16:18 Interval history: Mild Abdominal discomfort earlier today. Better this afternoon. Passing gas. Denied nausea or vomiting. Tolerating diet. Denied fevers or chills. Denied chest pain or shortness of breath. Does have chronic cough which she relates to his chronic cigarette use. Denied need for nicotine replacement Review of Systems Review of Systems: All systems reviewed & are unremarkable except as noted in HPI and below Exam Narrative: HEENT: PERRL, sclerae nonicteric, pharyngeal mucosa pink and intact NECK: No JVD CHEST: Coarse BS. Normal effort. HEART: NL S1/S2, regular, no murmur ABDOMEN: BS+, soft, MILD LLQ TENDERNESS. EXTREMITIES: No cyanosis, edema, or clubbing NEUROLOGIC: CN intact and symmetric to inspection. MUSCULOSKELETAL: Tone and strength symmetric. PSYCH: Alert. Oriented to person, place, and time. Objective Data Vital Signs Vital Signs: Vital Signs - 24 hr 12/26/23 21:42 12/26/23 21:10 12/27/23 06:00 Temperature 99.1 F 98.3 F Pulse Rate 96 91 Respiratory Rate 18 16 Blood Pressure 122/63 121/60 Pulse Oximetry 96 97 Oxygen Delivery Room Air 12/27/23 08:50 12/27/23 14:00 Temperature 97.5 F L Pulse Rate 91 Respiratory Rate 20 Blood Pressure 108/68 Pulse Oximetry 96 Oxygen Delivery Room Air Intake/Output Intake/Output: Intake & Output 12/24/23 12/25/23 12/26/2324 23:59 23:59 23:59 23:59 Intake Total 1950.0 4660 1890 Output Total 600 1575 2750 Balance 1350.0 3085 -860 Meds/Results Medications: Active Medications Generic Name Dose Route Start Last Admin Trade Name Freq PRN Reason Stop Dose Admin Albuterol 1 - 2 puff 12/26/23 07:18 Albuterol Sulfate (*Sp) Aerosol 1 Puff INHALATION Q4-6H PRN shortness of breath or wheezing Hydromorphone HCl 1 mg 12/25/23 06:08 12/27/23 12:24 Hydromorphone Hcl Inj (*Crx) 1 Mg/Ml Syr IV PUSH 1 mg Q4H PRN Administration Pain Rated 7-10 Piperacillin/Tazobactam/Dextrose 3.375 gm in 50 mls @ 100 mls/hr 12/25/23 12:00 12/27/23 12:57 Zosyn 3.375 Gm/Ns 50 Ml IVPB Infused Q6H VICENTE Infusion Sodium Chloride 1,000 mls @ 125 mls/hr 12/25/23 06:10 12/27/23 14:10 Normal Saline Iv IV CONT Not Given .Q8H VICENTE Latanoprost 1 drop 12/26/23 21:00 12/26/23 21:08 Latanoprost 0.005% Op Soln 2.5 Ml Btl EACH EYE 1 drop HS VICENTE Administration Ondansetron HCl 4 mg 12/25/23 06:08 Ondansetron Inj 4 Mg/2 Ml Vial IV PUSH Q4H PRN Nausea Pantoprazole Sodium 40 mg 12/26/23 09:00 12/27/23 08:50 Pantoprazole Sodium Iv 40 Mg Vial IV PUSH 40 mg QAM VICENTE Administration Radiology Results: ITS Impressions Abdomen/Pelvis CT 12/25/23 05:46 Impression: Wall thickening and mild pericolonic infiltrative changes; several small bubbles of intravenous air in the abdomen. Correlate for diverticulitis versus possibility of ischemic bowel. Labs Labs: Laboratory Results - last 24 hr 12/27/23 04:45 WBC 12.5 H RBC 4.11 L Hgb 12.4 L Hct 38.2 L MCV 92.9 MCH 30.2 MCHC 32.5 RDW 13.3 Plt Count 191 MPV 10.2 Sodium 134
[2023-12-27] MEDS: LATANOPROST 0.005% OP SOLN 2.5 ML BTL 1 DROP EACH EYE (20:25)
[2023-12-27 21:43] VITALS: BP 109/57; PULSE 87; RESP 14; TEMP 36.7; O2SAT 97
[2023-12-28] MEDS: PIPERACILLN/TAZ 3.375GM/NS50ML 3.375 GM/50 ML BAG IVPB ×3 (00:17→11:40)
[2023-12-28] MEDS: SODIUM CHLORIDE 0.9% IV 1,000 ML 125 ML IV CONT (03:03)
[2023-12-28 05:27] VITALS: BP 136/67; PULSE 92; RESP 16; TEMP 36.1; O2SAT 97
[2023-12-28 06:13] LABS: Hemoglobin 12.4 g/dL (14.0-18.0); Mean Corpuscular HGB Conc 33.5 g/dl (32-36); Mean Corpuscular Hemoglobin 30.8 pg (26-34); Mean Platelet Volume 10.2 fl (7.4-10.4); Platelet Count Result 218 k/mm3 (150-375); Red Blood Count 4.02 M/mm3 (4.6-6.20); Red Cell Distribution Width 13.3 % (11.5-14.5); White Blood Count 8.9 K/mm3 (4.5-10.0)
[2023-12-28 06:20] LABS: Anion Gap 3 mmol/L (4-12); Blood Urea Nitrogen 7 mg/dL (9-20); Calcium 8.5 mg/dL (8.4-10.2); Carbon Dioxide 26 mmol/L (22-30); Chloride 105 mmol/L (98-107); Estimated CRCL calculation 87 ml/min; Estimated Glomerular Filt Rate > 60; Glucose 100 mg/dL (65-110); Potassium 3.9 mmol/L (3.4-5.0); Sodium 134 mmol/L (137-145)
[2023-12-28] MEDS: PANTOPRAZOLE SODIUM IV 40 MG VIAL IV PUSH (08:49)
[2023-12-28] MEDS: DOCUSATE SODIUM 100 MG CAPSULE PO (09:27)
[2023-12-28] MEDS: polyethylene glycoL 3350 17 GM POWD.PACK PO (09:27)
--- NOTE | 2023-12-28 13:25 | PM.PNGS ---
Progress Note: A&P Assessment and Plan (1) Diverticulitis: Code(s): K57.92 - Diverticulitis of intestine, part unspecified, without perforation or abscess without bleeding Status: Acute Assessment and Plan: WBC count normal, CT reviewed and no significant progression identified. Patient symptomatic leave much better. Okay to discharge home on low-fiber diet. Will have dietitian probation counselor patient on low-fiber diet for 2 weeks followed by high-fiber diet. Would recommend continuing antibiotics for 10 more days. Colonoscopy would be recommended no earlier than 6-8 weeks after hospitalization. (2) Tobacco abuse: Code(s): Z72.0 - Tobacco use Status: Acute (3) COPD (chronic obstructive pulmonary disease): Qualifiers: COPD type: unspecified COPD Qualified Code(s): J44.9 - Chronic obstructive pulmonary disease, unspecified Code(s): J44.9 - Chronic obstructive pulmonary disease, unspecified Status: Acute Subjective Subjective Date/Time Seen: 12/28/23 13:25 Interval history: Pain improved, tolerating diet, passing flatus but still no BM. Exam GI: Inspection: non-distended GI Palp: Yes Soft to palpation, No Tenderness to palpation present (GI) and No Guarding due to palpation present (GI) Auscultation: normal bowel sounds Objective Data Vital Signs Vital Signs: Vital Signs - 24 hr 12/27/23 14:00 12/27/23 21:43 12/27/23 20:00 Temperature 36.4 C L 36.7 C Pulse Rate 91 87 Respiratory Rate 20 14 Blood Pressure 108/68 109/57 L Pulse Oximetry 96 97 Oxygen Delivery Room Air 12/28/23 05:27 12/28/23 08:14 Temperature 36.1 C L Pulse Rate 92 Respiratory Rate 16 Blood Pressure 136/67 Pulse Oximetry 97 Oxygen Delivery Room Air Intake/Output Intake/Output: Intake & Output 12/25/23 12/26/23 12/27/23 12/28/23 23:59 23:59 23:59 23:59 Intake Total 1950.0 4660 3920 1100 Output Total 600 1575 3950 1900 Balance 1350.0 3085 -30 -800 Meds/Results Medications: Active Medications Generic Name Dose Route Start Last Admin Trade Name Freq PRN Reason Stop Dose Admin Albuterol 1 - 2 puff 12/26/23 07:18 Albuterol Sulfate (*Sp) Aerosol 1 Puff INHALATION Q4-6H PRN shortness of breath or wheezing Docusate Sodium 100 mg 12/28/23 09:00 12/28/23 09:27 Docusate Sodium 100 Mg Capsule PO 100 mg Q12HR VICENTE Administration Hydromorphone HCl 1 mg 12/25/23 06:08 12/27/23 18:36 Hydromorphone Hcl Inj (*Crx) 1 Mg/Ml Syr IV PUSH 1 mg Q4H PRN Administration Pain Rated 7-10 Piperacillin/Tazobactam/Dextrose 3.375 gm in 50 mls @ 100 mls/hr 12/25/23 12:00 12/28/23 11:40 Zosyn 3.375 Gm/Ns 50 Ml IVPB 100 mls/hr Q6H VICENTE Administration Sodium Chloride 1,000 mls @ 125 mls/hr 12/25/23 06:10 12/28/23 03:03 Normal Saline Iv IV CONT 125 mls/hr .Q8H VICENTE Administration Latanoprost 1 drop 12/26/23 21:00 12/27/23 20:25 Latanoprost 0.005% Op Soln 2.5 Ml Btl EACH EYE 1 drop HS VICENTE Administration Ondansetron HCl 4 mg 12/25/23 06:08 Ondansetron Inj 4 Mg/2 Ml Vial IV PUSH Q4H PRN Nausea Pantoprazole Sodium 40 mg 12/26/23 09:00 12/28/23 08:49 Pantoprazole Sodium Iv 40 Mg Vial IV PUSH 40 mg QAM VICENTE Administration Polyethylene Glycol 17 gm 12/28/23 09:00 12/28/23 09:27 Polyethylene Glycol 3350 17 Gm Powd.Pack PO 17 gm QAM VICENTE Administration Radiology Results: ITS Impressions Abdomen/Pelvis CT 12/28/23 05:56 Impression: Findings again suggestive of distal sigmoid diverticulitis, now with small bubbles of free air locally, compatible with interval microperforation. No abscess or bowel obstruction. Ischemic bowel remains a potential alternative diagnostic consideration. Labs Labs: Laboratory Results - last 24 hr 12/28/23 05:57 WBC 8.9 RBC 4.02 L Hgb 12.4 L Hct 37.0 L MCV 92.0 MCH 30.8 MCHC 33.5 RDW 13.3 Plt Count 218 MPV 10.2 S
[2023-12-28 14:00] VITALS: BP 104/79; PULSE 87; RESP 20; TEMP 36.8; O2SAT 97
--- NOTE | 2023-12-28 14:55 | PM.DS ---
DS: Admitting Diagnosis Discharge Date 12/28/2023 Admitting Diagnosis Abdominal pain. DS: Discharge Diagnosis Discharge Diagnosis (1) Diverticulitis: Code(s): K57.92 - Diverticulitis of intestine, part unspecified, without perforation or abscess without bleeding Status: Acute Assessment and Plan: Continue Zosyn WBC 12/24 13.0, 12/25 12.6, 12/26 [address] A/p 12/27 ct showed - Stable sigmoid diverticulitis with microperforation. No abscess. 2. 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 pt seen by surgery MD pt walkin the [facility] today (2) COPD (chronic obstructive pulmonary disease): Qualifiers: COPD type: unspecified COPD Qualified Code(s): J44.9 - Chronic obstructive pulmonary disease, unspecified Code(s): J44.9 - Chronic obstructive pulmonary disease, unspecified Status: Acute Assessment and Plan: at baseline per history (3) Tobacco abuse: Code(s): Z72.0 - Tobacco use Status: Acute Assessment and Plan: declines nicotine replacement DS: Summary Hospital Course Hospital Course: 63-year-old male smoker, recently admitted to the hospital for diverticulitis without perforation, with history of prostate cancer status post prostatectomy and radiation, gastroesophageal reflux disease, dyslipidemia, pulmonary embolism, and chronic obstructive pulmonary disease who presented to the emergency department for evaluation of abdominal pain.?CT of the abdomen and pelvis showed stable sigmoid diverticulitis with microperforation and thrombosis of inferior mesenteric vein. No abscess was seen. ED physician spoke with the on-call surgeon who recommended continued supportive care and IV antibiotics. Patient is pleasant lying in bed. He continues to have general abdominal pain worse in the right lower quadrant. He is tolerating a diet well without nausea/vomiting. He remains on rocephin and flagyl at this time for the diverticulitis. His WBC continues to downtrend. He will need to be transitioned to Eliquis on discharge for the JENNIFER thrombus. Care coordination consulted in regards to eliquis pricing and patient received a free trail card. Surgery MD rounding daily CT repeated showing microperforation pt feeling better diet advanced slowly pt walking the [facility]. Time Spent with Patient Time attestation: Total time spent providing and/or coordinating discharge services:40 minutes on day of DC Exam Narrative: HEENT: PERRL, sclerae nonicteric, pharyngeal mucosa pink and intact NECK: No JVD CHEST: Coarse BS. Normal effort. HEART: NL S1/S2, regular, no murmur ABDOMEN: BS+, soft, MILD LLQ TENDERNESS. EXTREMITIES: No cyanosis, edema, or clubbing NEUROLOGIC: CN intact and symmetric to inspection. MUSCULOSKELETAL: Tone and strength symmetric. PSYCH: Alert. Oriented to person, place, and time. DS: Data Data Completed and Pending Labs on day of discharge: Labs from last 24 hours 12/28/23 05:57 WBC 8.9 RBC 4.02 L Hgb 12.4 L Hct 37.0 L MCV 92.0 MCH 30.8 MCHC 33.5 RDW 13.3 Plt Count 218 MPV 10.2 Sodium 134 L Potassium 3.9 Chloride 105 Carbon Dioxide 26 Anion Gap 3 L BUN 7 L Creatinine 0.70 Estim Creat Clear Calc 87 Estimated GFR > 60 Glucose 100 Calcium 8.5 Preliminary micro results at discharge 12/25/23 06:42 Blood Culture - Preliminary Blood 12/25/23 06:41 Blood Culture - Preliminary Blood Discharge Plan Discharge Attending physician on discharge: Palma Mayberry Consulting providers: Best Storm; Padmini Cadena; Terry Donahue; Gregg Tolentino Discharging Clinician: Palma Mayberry Anticipated Discharge Date/Time: 12/28/23 14:51 Patient Disposition: Home, Self-Care Activity: as tolerated Diet: low fiber Discharge Instructions: Continue low-fiber diet for 2 weeks, then may gradually transition to high-fiber diet and/or fiber sup
--- NOTE | 2023-12-28 15:08 | PC.NURSE ---
Pt discharging home with today. Pt is A&O4 male who has participated and contributed in plan of care. Pt reports inability to move bowels, miralax and colace given. Pt compliant with medication. Pt has been monitored for any changes in status. Will continue to monitor until time of discharge.
== END 2023-12-28 15:36 | disposition home or self-care (01) | DRG 392 ==
LOC: ANHED 06:44 → ANH3MEDSUR 07:46
PROVIDERS: General Practice; Internal Medicine; Admitting Provider Internal Medicine; Emergency Provider Emergency Medicine; PCP Family Medicine; Visit Provider Family Medicine
DX: K57.32 Diverticulitis of large intestine without perforation or abscess without bleeding (principal); J44.9 Chronic obstructive pulmonary disease, unspecified; E78.5 Hyperlipidemia, unspecified; K21.9 Gastro-esophageal reflux disease without esophagitis; N32.81 Overactive bladder; K58.9 Irritable bowel syndrome, unspecified; R91.8 Other nonspecific abnormal finding of lung field; F17.210 Nicotine dependence, cigarettes, uncomplicated; Z85.46 Personal history of malignant neoplasm of prostate; Z86.711 Personal history of pulmonary embolism
CPT/HCPCS: 36415; 74177; 80048; 80053; 81001; 83605; 83690; 83735; 84145; 85025; 85027; 85610; 85730; 87040; 96361; 96365; 96375; 96376; 99285; A9270; C9113; G0378; J1170; J2405; J2543; J7030; Q9967

== ENCOUNTER 2024-01-04 15:03 | Inpatient (IN) | payer OTHER, SELFPAY ==
[2024-01-04] VITALS (7 sets, daily range): BP systolic 116–141; BP diastolic 62–80; PULSE 100–119; RESP 13–21; TEMP 36.2–37.1; O2SAT 98–100; BMI 18.6
--- NOTE | ~2024-01-04 | CT_ITS ---
EXAMINATION: CT abdomen pelvis w con DATE: 01/04/2024 17:01 INDICATION: Lower abdominal pain. TECHNIQUE: Computed tomography (CT) of the abdomen and pelvis was performed with 100 mL Omnipaque 350 intravenous contrast. Automated exposure control and iterative reconstruction technique were employe d. The dose-length product was 287.59 mGy-cm. COMPARISON: CT abdomen and pelvis 12/28/2023 FINDINGS: The visualized portions of the lung bases demonstrate minimal atelectasis. No pleural effus ion. The heart size is normal. No pericardial effusion. There is a small sliding hiatal hernia. There are cysts in the liver measuring up to 12 mm. The gallbladder, spleen, pancreas, adrenal glands, and kidneys are normal. There are scattered diverticula in the colon. There is fat stranding around the sigmoid colon with free intraperitoneal gas near the sigmoid colon. There are no dilated loops of bow el. The appendix is normal. Again seen is thrombosis of the inferior mesenteric vein. There is calcif ied atherosclerosis of the aorta and many of the other arteries. There are no pathologically enlarged lymph nodes. There is no free intraperitoneal fluid. There is mild chronic anterior wedging of L1 an d L2 vertebral bodies. There is mild lumbar spondylosis. IMPRESSION: 1. Stable sigmoid diverticulitis with microperforation. No abscess. 2. 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 Reviewed, dictated and finalized at location A.
[2024-01-04 15:37] LABS: Basophils Percent Auto 0.3 % (0.2-1.2); Eosinophils Absolute Auto 0.1 K/mm3 (0-0.3); Eosinophils Percent Auto 1.2 % (0-4.4); Hematocrit 40.8 % (42.0-52.0); Hemoglobin 13.4 g/dL (14.0-18.0); Immature Granulocyte Absolute 0.07 K/mm3 (0.00-0.031); Immature Granulocyte Percent A 0.6 % (0-0.5); Lymphocytes Absolute Auto 1.22 K/mm3 (0.9-3.2); Lymphocytes Percent Auto 10.1 % (18.3-44.2); Mean Corpuscular HGB Conc 32.8 g/dl (32-36); Mean Corpuscular Hemoglobin 30.7 pg (26-34); Mean Corpuscular Volume 93.6 fl (80-100); Mean Platelet Volume 9.2 fl (7.4-10.4); Monocytes Absolute Auto 0.9 K/mm3 (0.1-0.6); Monocytes Percent Auto 7.4 % (2.6-8.5); Neutrophils Absolute Auto 9.7 K/mm3 (1.3-6.7); Neutrophils Percent Auto 80.4 % (45.5-73.1); Platelet Count Result 388 k/mm3 (150-375); Red Blood Count 4.36 M/mm3 (4.6-6.20); Red Cell Distribution Width 13.2 % (11.5-14.5); White Blood Count 12.1 K/mm3 (4.5-10.0)
[2024-01-04 15:54] LABS: Alanine Aminotransferase 28 U/L (6-50); Albumin Level 3.5 g/dL (3.5-5.1); Alkaline Phosphatase 70 U/L (38-126); Anion Gap 7 mmol/L (4-12); Aspartate Amino Transferase 22 U/L (17-59); Bilirubin,Total 0.4 mg/dL (0.2-1.3); Blood Urea Nitrogen 14 mg/dL (9-20); Calcium 9.3 mg/dL (8.4-10.2); Carbon Dioxide 27 mmol/L (22-30); Chloride 105 mmol/L (98-107); Estimated CRCL calculation 72 ml/min; Estimated Glomerular Filt Rate > 60; Glucose 149 mg/dL (65-110); Lipase 76 U/L (23-300); Sodium 139 mmol/L (137-145)
[2024-01-04 16:29] LABS: Appearance Urine Clear (Clear); Bilirubin Urine Negative (Negative); Blood Urine Negative (Negative); Color Urine Yellow (Yellow); Glucose Urine UA 1+ mg/dL (Negative); Ketones Urine Negative (Negative); Leukocyte Esterase Ur Negative LEU/UL (Negative); Nitrate Urine Negative (Negative); Protein Urine Negative (Negative); Specific Grav Ur 1.014 (1.001-1.035)
[2024-01-04] MEDS: SODIUM CHLORIDE 0.9% IV 1,000 ML 999 ML IV CONT (16:50)
[2024-01-04 17:13] LABS: Add Urine Microscopic? NO
--- NOTE | 2024-01-04 17:24 | ED.GENADULT ---
HPI - General Adult General Chief complaint: Abdominal Pain Stated complaint: abd pain Time Seen by Provider: 01/04/24 16:34 History of Present Illness HPI narrative: Patient is a 63-year-old male who presents ER with abdominal pain and poor oral intake. Patient recently diagnosed diverticulitis with microperforation. He underwent IV antibiotic treatment and surgical consultation. He was discharged home without any med she is taking. He saw his PCP today and they felt he should return the ER for further evaluation. Related Data Home Medications Medication Instructions Recorded Confirmed latanoprost (PF) 0.005 % eye drops 1 drop ophthalmic (eye) DAILY 07/18/19 01/04/24 fluticasone furoate 100 1 inh inhalation DAILY 01/04/24 01/04/24 mcg-vilanterol 25 mcg/dose inhalation powder (Breo Ellipta) Allergies Allergy/AdvReac Type Severity Reaction Status Date / Time adhesive tape Allergy Unknown BLISTERS/ Verified 01/04/24 15:28 SKIN PEELING OFF meperidine Allergy Unknown Unknown Verified 01/04/24 15:28 morphine Allergy Itching Verified 01/04/24 15:28 Review of Systems Review of Systems: All systems reviewed & are unremarkable except as noted in HPI and below Constitutional: Constitutional: Denies chills, Reports fatigue and Denies fever(s) ENT: Reports system reviewed and no additional complaints, except as documented Cardiovascular: Cardiovascular: Reports no additional cardiovascular complaints Respiratory: Respiratory: Reports no additional respiratory complaints Gastrointestinal: Gastrointestinal: Reports abdominal pain, Denies diarrhea, Denies nausea and Denies vomiting Genitourinary: Genitourinary: Reports no additional male genitourinary complaints [facility] Past Medical History Medical History (Updated 01/04/24 @ 21:40 by Alfredo Conley MD) Chronic obstructive pulmonary disease Diverticulitis Dyslipidemia Gastroesophageal reflux disease Irritable bowel syndrome Lung nodules Overactive bladder Prostate cancer Prostatectomy 2008, with recurrence 2011-treated with radiation Tobacco dependence Surgical History Surgical History (Updated 01/04/24 @ 19:03 by Hiral Pace PA-C) History of colonoscopy History of inguinal hernia repair History of prostatectomy (2008) Family History Family History Mother Hypertension Carcinoma of colon, Onset Age: 73 Family history of primary malignant neoplasm of liver Sibling , CVA occurred with CABG Hypertension Family history of diabetes mellitus in first degree relative Family history of renal failure Diabetes mellitus Family history of kidney disease Cerebrovascular accident Father Cerebrovascular accident Acute myocardial infarction Diabetes mellitus Social History Social History (Updated 01/04/24 @ 20:42 by Hiral Pace PA-C) Social History: Surrogate medical decision maker: Trinity Hager, spouse. Code status: Do not resuscitate. Smoking packs per day: 1 Smoking cigarettes per day: 20.0 Years smoked: 47 Smoking pack-years: 47.00 Smoking status: Heavy tobacco smoker Tobacco type: cigarettes Second hand tobacco smoke exposure: Yes Alcohol intake: current Substance use: never Substance use type: does not use Do You Feel Safe in your Home?: Yes Lack of Transportation: No Lack of Food: Never True Current Housing: I Have Housing Concerned About Future Housing: No Difficulty Paying Gas/Electric Bills: No Difficulty Paying for Meds: No Currently Unemployed: No Education: Decline to Answer Difficulty w/ Childcare or Family Care: No Living arrangements: with family Occupation/Education: occupation Spiritual care concerns: No Agree to blood products: Yes Exam Narrative: GENERAL: ill-appearing, well-nourished, and in no acute distress. HEAD: Normocephalic, atraumatic. ENT: Mucous me
--- NOTE | 2024-01-04 18:55 | PM.IMHP ---
H&P: HPI History of Present Illness Date/Time: 01/04/24 19:30 Chief Complaint: Abdominal pain. Narrative: This is a pleasant 63-year-old male smoker, recently admitted to the hospital for diverticulitis and microperforation, with history of prostate cancer status post prostatectomy and radiation, gastroesophageal reflux disease, dyslipidemia, pulmonary embolism, and chronic obstructive pulmonary disease who presented to the emergency department for evaluation of abdominal pain. He was discharged from the hospital on 12/28/2023 with prescription for Augmentin. He is taking the antibiotics but does not seem to be getting any better. He continues to have intermittent loose stools admixed with mucus. Appetite is not great. He has started to developed significant cramping pain more in the right mid to lower quadrant which is different than the pain that he was having previously. He also endorses chills. Today he had a follow-up with his primary care provider at which time he was found to be tachypneic and tachycardic. He reported increased abdominal pain and bloating and was referred back to the ED. He has not had a fever to his knowledge. He denies vomiting and blood in the stools. In the ED: He was afebrile on arrival with stable blood pressures. He has been tachycardic in the low 100s. Labs were significant for WBC count of 12.1, hemoglobin 13.4, platelet 388, sodium 130, glucose 149, lipase 76. CT of the abdomen and pelvis showed stable sigmoid diverticulitis with microperforation and thrombosis of inferior mesenteric vein. No abscess was seen. ED physician spoke with the on-call surgeon who recommended continued supportive care and IV antibiotics. He received a dose of ceftriaxone and metronidazole and was also given enoxaparin 60 mg and he is being admitted in this setting. Review of Systems Review of Systems: 12 systems were reviewed and are negative except for as per HPI. [facility] Past Medical History Medical History (Updated 01/04/24 @ 20:42 by Hiral Pace PA-C) Chronic obstructive pulmonary disease Diverticulitis Dyslipidemia Gastroesophageal reflux disease Irritable bowel syndrome Lung nodules Overactive bladder Prostate cancer Prostatectomy 2008, with recurrence 2011-treated with radiation Tobacco dependence Surgical History Surgical History (Updated 01/04/24 @ 19:03 by Hiral Pace PA-C) History of colonoscopy History of inguinal hernia repair History of prostatectomy (2008) Family History Family History Mother Hypertension Carcinoma of colon, Onset Age: 73 Family history of primary malignant neoplasm of liver Sibling , CVA occurred with CABG Hypertension Family history of diabetes mellitus in first degree relative Family history of renal failure Diabetes mellitus Family history of kidney disease Cerebrovascular accident Father Cerebrovascular accident Acute myocardial infarction Diabetes mellitus Social History Social History (Updated 01/04/24 @ 20:42 by Hiral Pace PA-C) Social History: Surrogate medical decision maker: Trinity Hager, spouse. Code status: Do not resuscitate. Smoking packs per day: 1 Smoking cigarettes per day: 20.0 Years smoked: 47 Smoking pack-years: 47.00 Smoking status: Heavy tobacco smoker Tobacco type: cigarettes Second hand tobacco smoke exposure: Yes Alcohol intake: current Substance use: never Substance use type: does not use Do You Feel Safe in your Home?: Yes Lack of Transportation: No Lack of Food: Never True Current Housing: I Have Housing Concerned About Future Housing: No Difficulty Paying Gas/Electric Bills: No Difficulty Paying for Meds: No Currently Unemployed: No Education: Decline to Answer Difficulty w/ Childcare or Family Care: No Living arrangements: with family Occupation/Education: occupation Spiritual care shelia
[2024-01-04] MEDS: ENOXAPARIN 60 MG/0.6 ML SYRINGE SUB-Q (19:01)
[2024-01-04] MEDS: metroNIDAZOLE 500 MG/ISO 100ML 500 MG/100 ML BAG 100 MG IVPB (19:23)
[2024-01-04] MEDS: SODIUM CHLORIDE 0.9% IV 1,000 ML 125 ML IV CONT (19:43)
--- NOTE | 2024-01-04 19:47 | ADMGEN ---
This patient, Mike Schwarz, was admitted to 2 Medical Room 260-. Patient/family oriented to hospital policies and general routines including ID bracelet, bed and alarms, visiting hours, pain management, procedures, bathroom and other care routines, personal items, smoking policy, room service/diet, and visiting hours. Information on how to activate the Rapid Response Team has been discussed. Patient/Family are encouraged to report perceived risks to care and to ask questions if they do not understand what they are told or what they should do.
[2024-01-04] MEDS: HYDROmorphone HCL INJ (*CRX) 1 MG/ML SYR 0.5 MG IV PUSH (19:51)
[2024-01-04] MEDS: POTASSIUM CHLORIDE 20 MEQ ER TABLET 40 MEQ PO (21:17)
--- NOTE | 2024-01-04 21:42 | PCRCNOTE ---
Smoking Cessation Update: Pt received smoking cessation info upon d/c on Thursday and has since cut back from 1ppf to 2ppd. Congratulated pt on his progress and encouraged him to continue to plan for success by daily cutting back and using nicotine replacement as directed (reviewed with pt.). Pt politely declines any further written info as he already has it at home. Also encouraged pt to ask nursing staff should he feel he needs a nicotine patch while he's admitted with us.
[2024-01-05] MEDS: HYDROmorphone HCL INJ (*CRX) 1 MG/ML SYR 0.5 MG IV PUSH ×4 (02:18→21:19)
[2024-01-05] MEDS: SODIUM CHLORIDE 0.9% IV 1,000 ML 125 ML IV CONT ×3 (02:23→21:18)
[2024-01-05 04:11] VITALS: BP 123/68; PULSE 95; RESP 17; TEMP 36.6; O2SAT 95
[2024-01-05] MEDS: metroNIDAZOLE 500 MG/ISO 100ML 500 MG/100 ML BAG 100 MG IVPB ×3 (05:30→21:18)
[2024-01-05 05:32] LABS: Hemoglobin 11.9 g/dL (14.0-18.0); Mean Corpuscular HGB Conc 33.1 g/dl (32-36); Mean Corpuscular Hemoglobin 30.9 pg (26-34); Mean Corpuscular Volume 93.5 fl (80-100); Mean Platelet Volume 9.7 fl (7.4-10.4); Platelet Count Result 360 k/mm3 (150-375); Red Blood Count 3.85 M/mm3 (4.6-6.20); Red Cell Distribution Width 13.3 % (11.5-14.5); White Blood Count 10.2 K/mm3 (4.5-10.0)
[2024-01-05 05:46] LABS: Anion Gap 4 mmol/L (4-12); Blood Urea Nitrogen 8 mg/dL (9-20); Calcium 8.5 mg/dL (8.4-10.2); Carbon Dioxide 24 mmol/L (22-30); Chloride 109 mmol/L (98-107); Estimated CRCL calculation 74 ml/min; Estimated Glomerular Filt Rate > 60; Glucose 88 mg/dL (65-110); Magnesium 1.9 mg/dL (1.6-2.3); Potassium 3.7 mmol/L (3.4-5.0); Sodium 137 mmol/L (137-145)
[2024-01-05] MEDS: TOLTERODINE TARTRATE LA 4 MG CAP.ER.24H PO (08:51)
[2024-01-05] MEDS: LATANOPROST 0.005% OP SOLN 2.5 ML BTL 1 DROP EACH EYE (08:52)
[2024-01-05 08:56] VITALS: RESP 18; O2SAT 95
[2024-01-05] MEDS: ENOXAPARIN 60 MG/0.6 ML SYRINGE 55 MG SUB-Q ×2 (08:56→21:18)
[2024-01-05] MEDS: FLUTICASONE/SALMETEROL 115-21 MCG INHALER 1 PUFF 2 PUFF INHALATION ×2 (09:15→20:59)
[2024-01-05 14:00] VITALS: BP 111/54; PULSE 68; RESP 18; TEMP 37.3; O2SAT 93
--- NOTE | 2024-01-05 14:52 | PM.IMPN ---
Progress Note: A&P Assessment and Plan (1) Perforation of sigmoid colon due to diverticulitis: Code(s): K57.20 - Diverticulitis of large intestine with perforation and abscess without bleeding Status: Acute Assessment and Plan: CT scan continues to show findings of diverticulitis with stable micro perforation without evidence of abscess. He has been started on metronidazole and ceftriaxone on 01/03. Clear liquid diet. Advance diet as tolerated. (2) Inferior mesenteric vein thrombosis: Code(s): K55.069 - Acute infarction of intestine, part and extent unspecified Status: Acute Assessment and Plan: CT scan also showed an inferior mesenteric vein thrombosis; unclear if this is due to inflammation and infection but he does have a history of PE. Started on Lovenox 1 mg/kg BID Will need to transition to Eliquis at discharge. CC consult for pricing. (3) Hypokalemia: Code(s): E87.6 - Hypokalemia Status: Acute Assessment and Plan: Potassium of 3 on admission. Potassium replaced. (4) Chronic obstructive pulmonary disease: Code(s): J44.9 - Chronic obstructive pulmonary disease, unspecified Status: Acute Assessment and Plan: Vital signs were reviewed and they are stable. No evidence to suggest COPD exacerbation. (5) Tobacco dependence: Code(s): F17.200 - Nicotine dependence, unspecified, uncomplicated Status: Acute Assessment and Plan: Smoking cessation is encouraged and was discussed. He declines the need for nicotine patch at this time. Plan Potassium will be replaced and monitored. His home medications will be reviewed and resumed as appropriate. Findings and treatment plan were discussed with the patient. Questions were solicited and answered to satisfaction. The patient's medical management will be taken over by the hospitalist team in a.m. Subjective Date/time seen: 01/05/24 14:52 Interval history: patient's pain is well controlled. He is requesting advancement his diet. Will do trial of low-fiber diet. If patient does well with this diet he should be able to discharge tomorrow with anticoagulation therapy. Exam Narrative: GENERAL: Comfortable, no acute distress HENMT: moist mucous membranes, poor dentition EYES: EOM intact b/l NECK: no lymphadenopathy RESPIRATORY: clear to auscultation, no increased respiratory effort CARDIO: Regular rate and rhythm GI: soft, mild tenderness to palpation, bowel sounds present SKIN/EXTREMITIES: no rashes, no edema, no redness or tenderness NEURO: PROM intact, answers questions appropriately, A&O x4 Objective Data Vital Signs Vital Signs: Vital Signs - 24 hr 01/04/24 15:04 01/04/24 15:28 01/04/24 16:30 Temperature 97.2 F L Pulse Rate 119 H 108 H 104 H Respiratory Rate 18 15 17 Blood Pressure 116/62 131/77 130/77 Pulse Oximetry 100 99 99 Oxygen Delivery 01/04/24 17:47 01/04/24 19:04 01/04/24 19:18 Temperature 97.5 F L Pulse Rate 104 H 112 H 100 Respiratory Rate 13 18 21 H Blood Pressure 139/75 141/80 H 130/80 Pulse Oximetry 100 100 98 Oxygen Delivery 01/04/24 19:30 01/04/24 20:00 01/05/24 04:11 Temperature 98.7 F 97.8 F Pulse Rate 115 H 95 Respiratory Rate 18 17 Blood Pressure 124/67 123/68 Pulse Oximetry 99 95 Oxygen Delivery Room Air 01/05/24 08:56 01/05/24 14:00 Temperature 99.1 F Pulse Rate 68 Respiratory Rate 18 18 Blood Pressure 111/54 L Pulse Oximetry 95 93 Oxygen Delivery Room Air Intake/Output Intake/Output: Intake & Output 01/02/24 01/03/24 01/04/24 01/05/24 23:59 23:59 23:59 23:59 Intake Total 1050 3615.5 Output Total 2925 Balance 1050 690.5 Meds/Results Medications: Active Medications Generic Name Dose Route Start Last Admin Trade Name Mónica PRN Reason Stop Dose Admin Acetaminophen 650 mg 01/04/24 20:43 Acetaminophen 325 Mg
[2024-01-05 21:03] VITALS: PULSE 101; O2SAT 95
[2024-01-05 22:00] VITALS: BP 119/63; PULSE 99; RESP 16; TEMP 36.9; O2SAT 96
[2024-01-06] MEDS: HYDROmorphone HCL INJ (*CRX) 1 MG/ML SYR 0.5 MG IV PUSH ×3 (01:57→10:43)
[2024-01-06 04:49] LABS: Hemoglobin 12.2 g/dL (14.0-18.0); Mean Corpuscular HGB Conc 32.1 g/dl (32-36); Mean Corpuscular Hemoglobin 30.4 pg (26-34); Mean Corpuscular Volume 94.8 fl (80-100); Mean Platelet Volume 9.3 fl (7.4-10.4); Platelet Count Result 335 k/mm3 (150-375); Red Blood Count 4.01 M/mm3 (4.6-6.20); White Blood Count 9.6 K/mm3 (4.5-10.0)
[2024-01-06 05:06] LABS: Anion Gap 7 mmol/L (4-12); Blood Urea Nitrogen 6 mg/dL (9-20); Calcium 8.5 mg/dL (8.4-10.2); Carbon Dioxide 22 mmol/L (22-30); Chloride 109 mmol/L (98-107); Estimated CRCL calculation 65 ml/min; Estimated Glomerular Filt Rate > 60; Glucose 91 mg/dL (65-110); Potassium 3.7 mmol/L (3.4-5.0); Sodium 138 mmol/L (137-145)
[2024-01-06] MEDS: metroNIDAZOLE 500 MG/ISO 100ML 500 MG/100 ML BAG 100 MG IVPB ×3 (05:12→21:11)
[2024-01-06] MEDS: SODIUM CHLORIDE 0.9% IV 1,000 ML 125 ML IV CONT ×2 (05:14→16:25)
[2024-01-06 06:00] VITALS: BP 136/77; PULSE 84; RESP 16; TEMP 36.8; O2SAT 96
--- NOTE | 2024-01-06 07:36 | PM.IMPN ---
Progress Note: A&P Assessment and Plan (1) Perforation of sigmoid colon due to diverticulitis: Code(s): K57.20 - Diverticulitis of large intestine with perforation and abscess without bleeding Status: Acute Assessment and Plan: CT of the abdomen and pelvis showed stable sigmoid diverticulitis with microperforation. No abscess was seen. ED physician spoke with the on-call surgeon who recommended continued supportive care and IV antibiotics. He has been started on metronidazole and ceftriaxone on 01/03. Tolerating regular diet (2) Inferior mesenteric vein thrombosis: Code(s): K55.069 - Acute infarction of intestine, part and extent unspecified Status: Acute Assessment and Plan: CT scan also showed an inferior mesenteric vein thrombosis; unclear if this is due to inflammation and infection but he does have a history of PE. Started on Lovenox 1 mg/kg BID Will need to transition to Eliquis at discharge. CC consulted for pricing. Patient received a free trial card. (3) Hypokalemia: Code(s): E87.6 - Hypokalemia Status: Acute Assessment and Plan: Potassium of 3 on admission. Repleted at that time. Remains stable. Continue to monitor Replace as needed (4) Chronic obstructive pulmonary disease: Code(s): J44.9 - Chronic obstructive pulmonary disease, unspecified Status: Acute Assessment and Plan: Vital signs were reviewed and they are stable. No evidence to suggest COPD exacerbation. (5) Tobacco dependence: Code(s): F17.200 - Nicotine dependence, unspecified, uncomplicated Status: Acute Assessment and Plan: Smoking cessation is encouraged and was discussed. He declines the need for nicotine patch at this time. Time Spent With Patient Time with patient: 25 - 35 minutes Subjective Date/time seen: 01/06/24 07:36 Interval history: 63-year-old male smoker, recently admitted to the hospital for diverticulitis without perforation, with history of prostate cancer status post prostatectomy and radiation, gastroesophageal reflux disease, dyslipidemia, pulmonary embolism, and chronic obstructive pulmonary disease who presented to the emergency department for evaluation of abdominal pain.?CT of the abdomen and pelvis showed stable sigmoid diverticulitis with microperforation and thrombosis of inferior mesenteric vein. No abscess was seen. ED physician spoke with the on-call surgeon who recommended continued supportive care and IV antibiotics. Patient is pleasant lying in bed. He continues to have general abdominal pain worse in the right lower quadrant. He is tolerating a diet well without nausea/vomiting. He remains on rocephin and flagyl at this time for the diverticulitis. His WBC continues to downtrend. He will need to be transitioned to Eliquis on discharge for the JENNIFER thrombus. Care coordination consulted in regards to eliquis pricing and patient received a free trail card. Review of Systems Review of Systems: All systems reviewed & are unremarkable except as noted in HPI and below Exam Narrative: AF HR 100 RR 21 SpO2 98 BP 120/63 General: male in no acute respiratory distress who is nontoxic appearing, lying semi recumbent in bed. HEENT: Normocephalic. Atraumatic. Pupils equal round reactive to light. Extraocular movement intact. Sclera clear and anicteric. No facial asymmetry. Chest: Lungs are clear to auscultation bilaterally. No wheezes or crackles. CV: Heart was regular rate and rhythm. S1/S2. No murmurs, gallops, or rubs. Abd: Abdomen was soft. Tenderness to palpation. Nondistended. Positive bowel sounds. No organomegaly or masses. Ext: No clubbing, cyanosis, or edema. 2+ DP pulses bilaterally. Neuro: Patient is alert and oriented x4. Speech is clear. Psych: Normal mood and affect. Patient is pleasant and cooperative. Skin: Warm and dry. No rashes noted. Objective Data Vital Signs Vit
[2024-01-06] MEDS: FLUTICASONE/SALMETEROL 115-21 MCG INHALER 1 PUFF 2 PUFF INHALATION ×2 (08:03→21:18)
[2024-01-06 08:06] VITALS: O2SAT 95
[2024-01-06] MEDS: LATANOPROST 0.005% OP SOLN 2.5 ML BTL 1 DROP EACH EYE (08:39)
[2024-01-06 08:40] VITALS: O2SAT 96
[2024-01-06] MEDS: ENOXAPARIN 60 MG/0.6 ML SYRINGE 55 MG SUB-Q ×2 (08:40→21:11)
[2024-01-06] MEDS: TOLTERODINE TARTRATE LA 4 MG CAP.ER.24H PO (08:40)
[2024-01-06 14:00] VITALS: BP 120/63; PULSE 100; RESP 21; TEMP 36.7; O2SAT 98
[2024-01-06 21:33] VITALS: BP 138/77; PULSE 87; RESP 16; TEMP 37; O2SAT 97
[2024-01-07] MEDS: SODIUM CHLORIDE 0.9% IV 1,000 ML 125 ML IV CONT ×2 (01:34→09:47)
[2024-01-07] MEDS: metroNIDAZOLE 500 MG/ISO 100ML 500 MG/100 ML BAG 100 MG IVPB ×2 (05:06→13:24)
[2024-01-07 05:13] VITALS: BP 134/79; PULSE 88; RESP 20; TEMP 36.7; O2SAT 100
[2024-01-07 07:38] VITALS: RESP 20; O2SAT 100
[2024-01-07] MEDS: LATANOPROST 0.005% OP SOLN 2.5 ML BTL 1 DROP EACH EYE (08:15)
[2024-01-07 08:17] LABS: Basophils Absolute Auto 0.1 K/mm3 (0.0-0.1); Basophils Percent Auto 0.7 % (0.2-1.2); Eosinophils Absolute Auto 0.2 K/mm3 (0-0.3); Eosinophils Percent Auto 2.2 % (0-4.4); Hematocrit 41.1 % (42.0-52.0); Hemoglobin 13.4 g/dL (14.0-18.0); Immature Granulocyte Absolute 0.05 K/mm3 (0.00-0.031); Immature Granulocyte Percent A 0.6 % (0-0.5); Lymphocytes Absolute Auto 1.55 K/mm3 (0.9-3.2); Lymphocytes Percent Auto 18.3 % (18.3-44.2); Mean Corpuscular HGB Conc 32.6 g/dl (32-36); Mean Corpuscular Hemoglobin 30.3 pg (26-34); Mean Platelet Volume 9.5 fl (7.4-10.4); Monocytes Absolute Auto 0.9 K/mm3 (0.1-0.6); Monocytes Percent Auto 10.9 % (2.6-8.5); Neutrophils Absolute Auto 5.7 K/mm3 (1.3-6.7); Neutrophils Percent Auto 67.3 % (45.5-73.1); Platelet Count Result 360 k/mm3 (150-375); Red Blood Count 4.42 M/mm3 (4.6-6.20); Red Cell Distribution Width 13.1 % (11.5-14.5); White Blood Count 8.5 K/mm3 (4.5-10.0)
[2024-01-07] MEDS: TOLTERODINE TARTRATE LA 4 MG CAP.ER.24H PO (08:18)
[2024-01-07] MEDS: ENOXAPARIN 60 MG/0.6 ML SYRINGE 55 MG SUB-Q (08:21)
[2024-01-07] MEDS: FLUTICASONE/SALMETEROL 115-21 MCG INHALER 1 PUFF 2 PUFF INHALATION (08:31)
[2024-01-07 08:34] VITALS: O2SAT 97
[2024-01-07 08:39] LABS: Alanine Aminotransferase 29 U/L (6-50); Albumin Level 3.4 g/dL (3.5-5.1); Alkaline Phosphatase 65 U/L (38-126); Anion Gap 4 mmol/L (4-12); Aspartate Amino Transferase 31 U/L (17-59); Bilirubin,Total 0.4 mg/dL (0.2-1.3); Blood Urea Nitrogen 7 mg/dL (9-20); Calcium 9.2 mg/dL (8.4-10.2); Carbon Dioxide 27 mmol/L (22-30); Chloride 104 mmol/L (98-107); Estimated CRCL calculation 82 ml/min; Estimated Glomerular Filt Rate > 60; Glucose 97 mg/dL (65-110); Potassium 4.1 mmol/L (3.4-5.0); Sodium 135 mmol/L (137-145)
[2024-01-07] MEDS: DICYCLOMINE HCL 10 MG CAPSULE 20 MG PO (13:24)
[2024-01-07 14:00] VITALS: BP 130/70; PULSE 90; RESP 18; TEMP 36.7; O2SAT 98
--- NOTE | 2024-01-07 14:38 | PM.DS ---
DS: Admitting Diagnosis Discharge Date 01/07/24 Admitting Diagnosis Perforation of sigmoid colon due to diverticulitis Inferior mesenteric vein thrombosis Hypokalemia COPD Tobacco dependence DS: Discharge Diagnosis Discharge Diagnosis (1) Perforation of sigmoid colon due to diverticulitis: Code(s): K57.20 - Diverticulitis of large intestine with perforation and abscess without bleeding Status: Acute (2) Inferior mesenteric vein thrombosis: Code(s): K55.069 - Acute infarction of intestine, part and extent unspecified Status: Acute (3) Hypokalemia: Code(s): E87.6 - Hypokalemia Status: Acute (4) Chronic obstructive pulmonary disease: Code(s): J44.9 - Chronic obstructive pulmonary disease, unspecified Status: Acute (5) Tobacco dependence: Code(s): F17.200 - Nicotine dependence, unspecified, uncomplicated Status: Acute DS: Summary Hospital Course Reason for hospitalization: Perforation of sigmoid colon due to diverticulitis Inferior mesenteric vein thrombosis Hypokalemia COPD Tobacco dependence Hospital Course: 63-year-old male smoker, recently admitted to the hospital for diverticulitis without perforation, with history of prostate cancer status post prostatectomy and radiation, gastroesophageal reflux disease, dyslipidemia, pulmonary embolism, and chronic obstructive pulmonary disease who presented to the emergency department for evaluation of abdominal pain.?Patient was previously treated inpatient for diverticulitis and discharged on 12/28/23 with Augmentin. On this admission, CT of the abdomen and pelvis showed stable sigmoid diverticulitis with microperforation and thrombosis of inferior mesenteric vein. No abscess was seen. ED physician spoke with the on-call surgeon who recommended continued supportive care and IV antibiotics. Patient was started on Flagyl and Rocephin IV. He was discharged on flagyl and Levaquin PO. With plan to follow up with surgery as scheduled for a colonoscopy. On the CT patient was also noted to have an inferior mesenteric vein thrombosis. He was started on Lovenox 1mg/kg BID and at discharge transitioned to eliquis. Care coordination gave patient a free trial card for assistance in [place]. Discussed with patient the risks of blood thinners and information given at discharge. He states understanding. Patient discharged home in a stable condition. He will follow up with his PCP in 1 week and with surgery as scheduled. Time spent discussing smoking cessation with patient: 3 to 10 minutes Status at Discharge Functional status at discharge: independent ambulation Time Spent with Patient Time attestation: Total time spent providing and/or coordinating discharge services: Time spent: Greater than 30 minutes Exam Narrative: AF HR 90 RR 18 SpO2 98 BP 130/70 General: male in no acute respiratory distress who is nontoxic appearing, lying semi recumbent in bed. HEENT: Normocephalic. Atraumatic. Pupils equal round reactive to light. Extraocular movement intact. Sclera clear and anicteric. No facial asymmetry. Chest: Lungs are clear to auscultation bilaterally. No wheezes or crackles. CV: Heart was regular rate and rhythm. S1/S2. No murmurs, gallops, or rubs. Abd: Abdomen was soft. Mild tenderness to palpation. Nondistended. Positive bowel sounds. No organomegaly or masses. Ext: No clubbing, cyanosis, or edema. 2+ DP pulses bilaterally. Neuro: Patient is alert and oriented x4. Speech is clear. Psych: Normal mood and affect. Patient is pleasant and cooperative. Skin: Warm and dry. No rashes noted. DS: Data Data Completed and Pending Completed studies during hospitalization: Abdomen/Pelvis CT Labs on day of discharge: Labs from last 24 hours 01/07/24 07:45 WBC 8.5 RBC 4.42 L Hgb 13.4 L Hct 41.1 L MCV 93.0 MCH 30.3 MCHC 32.6 RDW 13.1 Plt Count 360 MPV 9.5 Immature Gran % (Auto) 0.6 H Neut % (Auto) 67.3 Lymph % (Au
--- NOTE | 2024-01-13 09:37 | PM.IMHP ---
H&P: HPI History of Present Illness Date/Time: 01/13/24 09:37 Chief Complaint: TEST [facility] Past Medical History Medical History (Updated 01/04/24 @ 21:40 by Alfredo Conley MD) Chronic obstructive pulmonary disease Diverticulitis Dyslipidemia Gastroesophageal reflux disease Irritable bowel syndrome Lung nodules Overactive bladder Prostate cancer Prostatectomy 2008, with recurrence 2011-treated with radiation Tobacco dependence Surgical History Surgical History (Updated 01/04/24 @ 19:03 by Hiral Pace PA-C) History of colonoscopy History of inguinal hernia repair History of prostatectomy (2008) Family History Family History Mother Hypertension Carcinoma of colon, Onset Age: 73 Family history of primary malignant neoplasm of liver Sibling , CVA occurred with CABG Hypertension Family history of diabetes mellitus in first degree relative Family history of renal failure Diabetes mellitus Family history of kidney disease Cerebrovascular accident Father Cerebrovascular accident Acute myocardial infarction Diabetes mellitus Social History Social History (Updated 01/04/24 @ 20:42 by Hiral Pace PA-C) Social History: Surrogate medical decision maker: Trinity Hager, spouse. Code status: Do not resuscitate. Smoking packs per day: 1 Smoking cigarettes per day: 20.0 Years smoked: 47 Smoking pack-years: 47.00 Smoking status: Heavy tobacco smoker Tobacco type: cigarettes Second hand tobacco smoke exposure: Yes Alcohol intake: current Substance use: never Substance use type: does not use Do You Feel Safe in your Home?: Yes Lack of Transportation: No Lack of Food: Never True Current Housing: I Have Housing Concerned About Future Housing: No Difficulty Paying Gas/Electric Bills: No Difficulty Paying for Meds: No Currently Unemployed: No Education: Decline to Answer Difficulty w/ Childcare or Family Care: No Living arrangements: with family Occupation/Education: occupation Spiritual care concerns: No Agree to blood products: Yes Meds Home Medications and Allergies Home Medications Medication Instructions Recorded Confirmed Type latanoprost (PF) 0.005 % eye drops 1 drop ophthalmic (eye) DAILY 07/18/19 01/04/24 History albuterol sulfate 90 mcg/actuation 1 - 2 puff inhalation Q4-6H PRN 11/21/22 01/04/24 Rx aerosol inhaler (ProAir HFA) shortness of breath or wheezing #8.5 grams dicyclomine 10 mg capsule 10 mg PO TID #180 caps 08/10/23 01/04/24 Rx tolterodine 4 mg capsule,extended 4 mg PO DAILY #90 caps 08/10/23 01/04/24 Rx release 24 hr (Detrol LA) fluticasone furoate 100 1 inh inhalation DAILY 01/04/24 01/04/24 History mcg-vilanterol 25 mcg/dose inhalation powder (Breo Ellipta) apixaban 5 mg (74 tabs) tablets in 5 mg PO ONCE #74 ea 01/07/24 Rx a dose pack (Numerify DVT-PE Treat 30D Start) levofloxacin 750 mg tablet 750 mg PO DAILY #7 tabs 01/07/24 Rx metronidazole 500 mg tablet 500 mg PO Q8H #18 tabs 01/07/24 Rx Allergies Allergy/AdvReac Type Severity Reaction Status Date / Time adhesive tape Allergy Unknown BLISTERS/ Verified 01/04/24 15:28 SKIN PEELING OFF meperidine Allergy Unknown Unknown Verified 01/04/24 15:28 morphine Allergy Itching Verified 01/04/24 15:28
== END 2024-01-07 14:55 | disposition home or self-care (01) | DRG 392 ==
LOC: ANHED 17:51 → ANH2MED 19:24
PROVIDERS: Internal Medicine Critical Care Medicine; Physician Assistant; Student in an Organized Health Care Education/Training Program; Admitting Provider General Practice; Emergency Provider Emergency Medicine; PCP Family Medicine; Visit Provider Family Medicine
DX: K57.20 Diverticulitis of large intestine with perforation and abscess without bleeding (principal); E87.6 Hypokalemia; E78.5 Hyperlipidemia, unspecified; F17.210 Nicotine dependence, cigarettes, uncomplicated; J44.9 Chronic obstructive pulmonary disease, unspecified; K21.9 Gastro-esophageal reflux disease without esophagitis; Z86.711 Personal history of pulmonary embolism; Z85.46 Personal history of malignant neoplasm of prostate; Z90.79 Acquired absence of other genital organ(s); Z92.3 Personal history of irradiation
CPT/HCPCS: 36415; 74177; 80048; 80053; 81003; 83690; 83735; 85025; 85027; 87040; 94640; 96361; 96365; 96366; 96367; 96372; 96375; 99285; A9270; G0378; J0696; J1170; J1650; J1836; J7030; Q9967

== ENCOUNTER 2024-11-30 09:43 | Outpatient (CLI) | payer OTHER, SELFPAY ==
--- NOTE | ~2024-11-30 | CT_ITS ---
CT Scan of the Chest without Contrast: Clinical Indication: Lung cancer screening, nicotine dependence Technique: Contiguous sections were acquired throughout the chest without intravenous contrast. Dose reduction technique was used on this scan by utilizing automated exposure control and iterative recon struction technique. The dose-length product (DLP) was 59.83 mGy-cm. COMPARISON: 12/14/2023 Findings: There is no evidence of any significant mediastinal, hilar or axillary lymphadenopathy. The mediastin al soft tissues appear normal. There is no evidence of pleural or pericardial effusion. Stable biapical scarring. No other pulmonary nodule. Images through the upper abdomen reveal small hiatal hernia. Impression: Lung RADS 2: Benign appearance. 12 month follow-up screening CT advised. Reviewed, dictated and finalized at location . Impression: Lung RADS 2: Benign appearance. 12 month follow-up screening CT advised.
== END 2024-11-30 09:44 | disposition home or self-care (01) ==
LOC: MICIMG 09:44
PROVIDERS: PCP Nurse Practitioner Family; Visit Provider Internal Medicine Critical Care Medicine
DX: Z12.2 Encounter for screening for malignant neoplasm of respiratory organs (principal); F17.210 Nicotine dependence, cigarettes, uncomplicated
CPT/HCPCS: 71271

== ENCOUNTER 2024-12-27 11:40 | Outpatient (CLI) | payer OTHER, SELFPAY ==
--- OUTSIDE RECORDS SUMMARY | 2024-12-27 12:18 | XMS_ITS | Clinical Summary ---
Author Organization [facility] Address [address] [place] [address] Care Team Providers Care Glue Mixer Name Role Phone Willi Lopez MD Primary Care Provider [phone] Allergies Active Allergy Reactions Criticality Noted Date Comments Meperidine Rash Low 02/09/2024 Morphine Itching 02/09/2024 Medications tolterodine LA (DETROL LA) 4 MG 24 hr capsule Take 1 capsule (4 mg total) by mouth daily. Active latanoprost (XALATAN) 0.005 % ophthalmic solution Place 1 drop into both eyes daily. Active SODIUM FLUORIDE 5000 PLUS 1.1 % Cream Take by mouth daily. 4 Active albuterol sulfate HFA 108 (90 Base) MCG/ACT inhaler Inhale 2 puffs into the lungs every 4 (four) hours as needed for Wheezing or Shortness of breath. 3 Active BREO ELLIPTA 100-25 MCG/ACT inhaler Inhale 1 puff into the lungs daily. 4 Active ELIQUIS 5 MG tablet Take 1 tablet (5 mg total) by mouth 2 (two) times daily. 4 Active dicyclomine (BENTYL) 20 MG tabletIndication s:Diverticulitis ,Diarrhea, unspecified type Take 1 tablet (20 mg total) by mouth every 6 (six) hours. 120 tablet 1 4 Active Active Problems Problem Noted Date Diagnosed Date Diverticulitis 02/10/2024 Diarrhea, unspecified type 02/10/2024 Family history of colon cancer in mother 06/19/2 024 Hx of colonic polyps 02/10/2024 Family History Medical History Relation Comments Diabetes Brother Diabetes Father Colon Cancer Mother Diabetes Sister Relation Status Comments Brother Father Mother Sister Social History Tobacco Use Types Packs/Day Years Used Date Smoking Tobacco: Every Day Cigarettes Passive Smoke Exposure: Never Smokeless Tobacco: Never Tobacco Cessation:Ready to Q uit: No; Counseling Given: Yes Alcohol Use Standard Drinks/Week Comments Yes 0 (1 standard drink = 0.6 oz pur e alcohol) occasionally PHQ-2 Answer Date Recorded Patient Health Questionnaire-2 Score 0 02/09/2024 Sex and Gender Information Value Date Recorded Sex Assigned at Not on file Legal Sex Male 4:40 PM CDT Gender Identity Not on file Sexual Orientation Not on file Last Filed Vital Signs Vital Sign Reading Time Taken Comments Blood Pressure 141/80 04/05/2024 8:08 AM CDT Pulse 84 04/05/2024 8:08 AM CDT Temperature 36.6 C (97.8 F) 04/05/2024 7:47 AM CDT Respiratory Rate 18 04/05/2024 8:08 AM CDT Oxygen Saturation 97% 04/05/2024 8:08 AM CDT Inhaled Oxygen Concentration - - Weight 59 kg (130 lb) 03/22/2024 4:37 PM CDT Height 172.7 cm (5' 8 ) 03/22/2024 4:37 PM CDT Body Mass Index 19.77 03/22/2024 4:37 PM CDT Plan of Treatment Health Maintenance Due Date Last Done Comments Annual Physical 1964 Hepatitis C 1979 DTaP, Tdap and Td Vaccines ( 1 - Tdap) 1980 Pneumococcal Vaccine: 50+ Ye ars (1 of 2 - PCV) 1980 Zoster Vaccines (1 of 2) 2011 COVID-19 Vaccine (1 - 2023-2 5 season) 2024 PHQ-2 (Physician [place]) 08/24/2024 02/09/2024 Colorectal Cancer Screening Flex Sig (5 Years) 04/05/2029 04/05/2024 RSV Immunization or 60+ Years (1 - 1-dose 75+ series) 2036 Meningococcal B Vaccine Aged Out No l onger eligible based on patient's age to complete this topic Meningococcal Vaccine Aged Out No alexi michele eligible based on patient's age to complete this topic RSV Immunizations Under 20 Months Aged Out No longer eligible based on patient's age to [place] [address] [facility] Care Teams Glue Mixer Relationship Specialty Start Date End Date Willi Lopez MD PCP - General 10/14/13
--- OUTSIDE RECORDS SUMMARY | 2024-12-27 12:18 | XMS_ITS | Clinical Summary ---
Author Organization [facility] Address [address] [place] [address] Care Team Providers Care Filter Press Operator Name Role Phone Willi Lopez MD Primary Care Provider [phone] Corina Chacko RN Unavailable [phone] Source Comments [facility],non-[facility] Affiliates and Associated Physician Practices is amultiple site organization consisting of ambulatory clinics and hospital sitesin [place], [place], [place] and [place]. This disclosure is being madepursuant to the Care Everywhere program and may not contain all information available regarding this patient. Last updated 18.[facility] Allergies Active Allergy Reactions Criticality Noted Date Comments Meperidine 02/07/2015 Medications * Be aware that medications may not be up to date on this document. Alwaysverify current medications with the patient. dicyclomine (BENTYL) 10 MG capsule Take 10 mg by mouth 2 times daily after meals Active tolterodine ER 24hr (DETROL LA) 4 MG capsule Take 4 mg by mouth once daily Active latanoprost (XALATAN) 0.005 % ophthalmic solution Instill 1 Drop into both eyes at bedtime Active Active Problems Problem Noted Date Diagnosed Date Chest pain 02/08/2015 Family History Medical History Relation Name Comments [place] Father Relation Name Status Comments Father Social History Tobacco Use Types Packs/Day Years Used Date Smoking Tobacco: Former Alcohol Use Standard Drinks/Week Comments Yes 0 (1 standard drink = 0.6 oz pur e alcohol) social Sex and Gender Information Value Date Recorded Sex Assigned at Not on file Legal Sex Male 5:11 AM CHEMICAL PUMPER Gender Identity Not on file Sexual Orientation Not on file Last Filed Vital Signs Vital Sign Reading Time Taken Comments Blood Pressure 103/67 02/09/2015 12:12 PM CDT Pulse 107 02/09/2015 12:12 PM CDT Temperature 37.1 C (98.7 F) 02/09/2015 12:12 PM CDT Respiratory Rate 20 02/09/2015 12:1 2 PM CDT Oxygen Saturation 97% 02/09/2015 12: 12 PM CDT Inhaled Oxygen Concentration - - Weight 64.3 kg (141 lb 12.8 oz) 02/08/2015 1:06 AM CDT Height 172.7 cm (5' 7.99 ) 02/07/2015 8:13 PM CD T Body Mass Index 21.57 02/07/2015 8:13 PM CDT Plan of Treatment Health Maintenance Due Date Last Done Comments COLOGUARD (AGES 45-75) - COL ON CA SCREENING 1961 COLON MONITORING 1961 COLONOSCOPY - COLON CA SCREENING 1961 CT COLONOGRAPHY - COLON CA SCREENING 1961 Colorectal Cancer Screening 1961 FIT - COLON CA SCREENING 1961 FLEX SIG - COLON CA SCREENING 1961 LIPID TESTING 1961 HIV SCREENING 1976 HEPATITIS C SCREENING 10/06/1979 DTAP/TDAP/TD VACCINES (1 - Tdap) 1980 PNEUMOCOCCAL VACCINE 50+ (1 of 1 - PCV) 2011 ZOSTER VACCINE (1 of 2) 2011 COVID-19 VACCINE (1 - 2023-2 5 season) 2024 DEPRESSION SCREENING 08/24/2024 INFLUENZA VACCINE (Season Ended) 2025 Respiratory Syncytial Virus (RSV) Vaccine Pt: or over 60 yrs (1 - 1-dose 75+ series) 2036 HEPATITIS B VACCINE Aged Out No longe r eligible based on patient's age to complete this topic HIB VACCINE Aged Out No longer eligi ble based on patient's age to complete this topic HPV VACCINE Aged Out No longer eligi ble based on patient's age to complete this topic MENINGOCOCCAL (Group B) VACC INE SHARED DECISION-MAKING Aged Out No longer eligibl e based on patient's age to complete this topic MENINGOCOCCAL GROUPS A/C/Y/W VACCINE Aged Out No longer eligible b ased on patient's age to complete this topic Insurance [employer] SELF PAY NO INSURANCE Member Subscriber Plan / Payer (Ef fective for All Dates) [place] Member ID:Not on file Relation to Subscriber:Not on file Name:YOSEF SCHWARZ Subscriber ID:Not on file (Home) Address: [address] [place] [address] Payer ID:Not on file Group ID:Not on file Type:Self Pay Address: [facility] Advance Directives * Full Code (Latest Code Status on File) Date Activated Date Inactivated Comments 02/08/2015 12:55 AM 02/09/2015 6:57 PM Care Teams Filter Press Operator Relationship Specialty Start Date End Date Willi Lopez MD [address] [place] [address] [address] [place] [id number] PCP - General Internal Medicine 02/07/15 Corina Chacko RN Agricultural Consultant 02/08/15
--- NOTE | 2024-12-27 12:22 | ECG_ITS ---
Test Date: 2024-12-27 12:33:25 Measurements Intervals [place] Rate: 89 P: 50 OK: 142 QRS: 10 QRSD: 110 T: 37 QT: 369 QTc: 451 Interpretive Statements SINUS RHYTHM INCOMPLETE RIGHT BUNDLE BRANCH BLOCK [90+ ms QRS DURATION, TERMINAL R IN V1/V2, 40+ ms S IN I/aVL/V4/V5/V6] No previous ECG available for comparison Electronically Signed On 12-27-2024 14:35:47 CDT by Niharika Baptiste M.D.
[2024-12-27 13:43] LABS: Hematocrit 45.2 % (42.0-52.0)
== END 2024-12-27 11:41 | disposition home or self-care (01) ==
LOC: ANHSURGERY 11:43
PROVIDERS: Anesthesiology; PCP Nurse Practitioner Family; Visit Provider Surgery
DX: Z01.818 Encounter for other preprocedural examination (principal); I45.10 Unspecified right bundle-branch block; E78.5 Hyperlipidemia, unspecified; K56.699 Other intestinal obstruction unspecified as to partial versus complete obstruction; Z79.01 Long term (current) use of anticoagulants
CPT/HCPCS: 36415; 85014; 85018; 93005

== ENCOUNTER 2025-01-10 14:00 | Inpatient (IN) | payer OTHER, SELFPAY ==
[2024-12-27 11:58] VITALS: BP 140/86; PULSE 98; RESP 16; TEMP 36.9; O2SAT 99; BMI 24.5
--- NOTE | 2024-12-27 12:13 | PC.NURSE ---
Report to the Outpatient Waiting Room, entrance under the green pavilion located off [facility], at time ___0700am____ on date __01/10/25 . Planned Procedure Time: _0900am .? Time changes happen often and if your time is changed the preop area will call you the afternoon before. - You and your visitor will be asked to self-screen and do not enter if you have any COVID symptoms. Please call surgeon if you need to reschedule. - A mask is optional within the hospital at this time. Patients may have clear liquids PREP and BOWEL BREP Day before (water, carbonated beverages, clear teas, apple juice) until 3 hours prior to surgery with a maximum of 20 ounces.(0600am) - no smoking, or chewing tobacco (or any form of nicotine). No chewing gum, candy or mints. Ensure as prescribed and Antibiotics as prescribed Take only the following medications with a SIP of water on the morning of surgery: __Inhaler as directed, antibiotics if Preop ordered DO NOT STOP ANY OF YOUR OTHER PRESCRIPTION MEDICATIONS PRIOR TO SURGERY EXCEPT THE FOLLOWING Hold all vitamins and supplements for 3 days per anesthesiologist. Medications to discontinue per physician Eliquis for [address] Storm Date to take last dose____01/04/25 Please no make-up, nail burkinan, hairspray, perfume, deodorant, or body powder the day of surgery.? No jewelry (including any body piercings) or valuables the day of surgery, leave them at home.? Please take a shower or bath the night before, or the morning of, surgery with an antibacterial soap.? Wear comfortable, loose fitting clothing.? HIBICLEANSE SCRUB , overnight bag, robe comfy clothes, tennis shoes, cell phone retail associate manager bilingual if needed - Jewelry must be removed prior to entering the operating room.? Rings and piercings that are not removed may be cut off. - The hospital will not accept responsibility for valuables.? - Please leave all valuables, including medications, at home the day of surgery. If you are going home after surgery, a licensed regional tanker truck driver must drive you home.? - NO public transportation without another adult if you receive anesthesia. - We recommend that an adult stay with you for 24 hours following discharge. - We also recommend that you do not drive, make important decision, drink alcoholic beverages, or take any drugs that were not prescribed by your health care provider for at least 24 hours after your discharge time. Follow any additional instructions given to you from your surgeon. Telephone instructions given to __Patient and asked if any additional questions and then verbalized understanding. Patient advised to call surgeon office or pre surgery nurse liaison [phone] if any additional questions.
[2025-01-10] VITALS (12 sets, daily range): BP systolic 92–140; BP diastolic 47–98; PULSE 60–99; RESP 12–18; TEMP 35.7–37.4; O2SAT 94–100
--- OUTSIDE RECORDS SUMMARY | 2025-01-10 00:19 | XMS_ITS | Clinical Summary ---
Author Organization [facility] Address [address] [place] [address] Care Team Providers Care Firefighter Marine Name Role Phone Willi Lopez MD Primary Care Provider [phone] Allergies Active Allergy Reactions Criticality Noted Date [...] - 2023-2 5 season) 2024 PHQ-2 (Physician [place]) 08/24/2024 02/09/2024 Colorectal Cancer Screening Flex Sig [...] patient's age to complete [place] [address] [facility] [place] [address] Care Teams Firefighter Marine Relationship Specialty Start Date End Date Willi Lopez MD PCP - General 10/14/13
--- OUTSIDE RECORDS SUMMARY | 2025-01-10 00:19 | XMS_ITS | Clinical Summary ---
Author Organization [facility] Address [address] [place] [address] Care Team Providers Care Regional Service Manager Name Role Phone Willi Lopez MD Primary Care Provider [phone] Corina Chacko RN Unavailable [phone] Source Comments [facility],non-[facility] Affiliates and Associated Physician Practices is amultiple site organization consisting of ambulatory clinics and hospital sitesin [place], [place], [place] and [place]. This disclosure is being madepursuant to the Care Everywhere program and may not contain all information available regarding this patient. Last updated 18.[facility] Allergies Active Allergy Reactions Criticality Noted Date [...] Family History Medical History Relation Name Comments [place] Father Relation Name Status Comments Father Social History Tobacco Use Types Packs/Day Years Used Date Smoking Tobacco: Former Alcohol Use Standard Drinks/Week Comments Yes 0 (1 standard drink = 0.6 oz pur e alcohol) social Sex and Gender Information Value Date Recorded Sex Assigned at Not on file Legal Sex Male 5:11 AM CARD FOLDER Gender Identity Not on file Sexual Orientation [...] / Payer (Ef fective for All Dates) Name:[place] Member ID:Not on file Relation to Subscriber:Not on file Name:YOSEF SCHWARZ Subscriber ID:Not on file (Home) Address: [address] [place] [address] Payer ID:Not on file Group ID:Not on file Type:Self Pay Address: [facility] Advance Directives * Full Code (Latest Code Status on File) Date Activated Date Inactivated Comments 02/08/2015 12:55 AM 02/09/2015 6:57 PM Care Teams Regional Service Manager Relationship Specialty Start Date End Date Willi Lopez MD [address] [place] [address] [address] [place] [id number] PCP - General Internal Medicine 02/07/15 Corina Chacko RN Open Cut Examiner 02/08/15
--- NOTE | 2025-01-10 07:19 | WPDANESEPPF ---
Anes - Initial Pre Proc Eval Procedure: Operation Date: 01/10/25 09:00 Proposed Procedures p Laparoscopic Sigmoid Colectomy, Da Yamil Assisted - Best Storm DO Date/Time: 01/10/25 07:19 Surgeon: Best Storm DO Pre Op Diagnosis: Sigmoid Stricture, Diverticulitis Patient Data Age: 64 Gender: M Height: 1.73 m Weight: 73 kg Last Vital Signs Temp 36.9 C 12/27/24 11:58 Pulse 98 12/27/24 11:58 Resp 16 12/27/24 11:58 BP 140/86 12/27/24 11:58 Pulse Ox 99 12/27/24 11:58 O2 Del Method Room Air 12/27/24 11:58 Allergies Allergy/AdvReac Type Severity Reaction Status Date / Time adhesive tape Allergy Unknown BLISTERS/ Verified 01/04/25 11:16 SKIN PEELING OFF morphine Allergy Itching Verified 01/04/25 11:16 meperidine AdvReac Unknown Rash Verified 01/04/25 11:16 Home Medications ?Medication ?Instructions ?Recorded ?Confirmed ?Type latanoprost (PF) 0.005 % eye drops 1 drop ophthalmic (eye) DAILY 07/18/19 01/04/25 History albuterol sulfate 90 mcg/actuation 1 - 2 puff inhalation Q4-6H PRN 11/21/22 01/04/25 Rx aerosol inhaler (ProAir HFA) shortness of breath or wheezing #8.5 grams famotidine 20 mg tablet (Pepcid) 20 - 40 mg (1 - 2 x 20 mg) PO 05/30/24 01/04/25 Rx DAILY #90 tabs fluticasone furoate 100 See Rx Instructions .Route 06/09/24 01/04/25 Rx mcg-vilanterol 25 mcg/dose .COMPLEX #180 ea inhalation powder apixaban 5 mg tablet (Eliquis) 5 mg PO BID #180 tabs 08/23/24 01/04/25 Rx dicyclomine 20 mg tablet 20 mg PO TID #270 tabs 08/23/24 01/04/25 Rx tolterodine 4 mg capsule,extended 4 mg PO DAILY #90 caps 08/23/24 01/04/25 Rx release 24 hr (Detrol LA) ciprofloxacin HCl 500 mg tablet 500 mg PO .COMPLEX #1 tablet 11/21/24 01/04/25 Rx metronidazole 500 mg tablet 500 mg PO .COMPLEX #3 tabs 11/21/24 01/04/25 Rx Patient hx anesthesia problems: none Family hx anesthesia problems: none Results Review: All pre-operative results and documents have been reviewed as part of the pre-operative evaluation. [facility] Past Medical History Medical History Tobacco dependence Diverticulitis Irritable bowel syndrome Dyslipidemia Overactive bladder Prostate cancer Prostatectomy 2008, with recurrence 2011-treated with radiation Lung nodules Surgical History Surgical History History of prostatectomy (2008) History of colonoscopy History of inguinal hernia repair Family History Family History Mother Hypertension Carcinoma of colon, Onset Age: 73 Family history of primary malignant neoplasm of liver Sibling , CVA occurred with CABG Hypertension Family history of diabetes mellitus in first degree relative Family history of renal failure Diabetes mellitus Family history of kidney disease Cerebrovascular accident Father Cerebrovascular accident Acute myocardial infarction Diabetes mellitus Social History Social History Social History: 01/02/25 very confident with medical forms Surrogate medical decision maker: Trinity Hager, spouse. Code status: Do not resuscitate. Smoking packs per day: 1.25 Smoking cigarettes per day: 25.0 Years smoked: 42 Smoking pack-years: 52.50 Smoking status: Former smoker Tobacco type: cigarettes Second hand tobacco smoke exposure: Yes Smoking end date: 10/14/24 Alcohol intake: current Drinks per week: 2 Substance use: never Substance use type: does not use Do You Feel Safe in your Home?: Yes Lack of Transportation: No Lack of Food: Never True Current Housing: I Have Housing Concerned About Future Housing: No Difficulty Paying Gas/Electric Bills: No Difficulty Paying for Meds: No Currently Unemployed: No Education: High School Diploma/GED Difficulty w/ Childcare or Family Care: No Living arrangements: with family Additional living arrangements comments: Occupation/Education: occupation Spiritual care concerns: No Agree to blood products: Yes Anes - Eval Final PreProcedure Day of Procedure 01/10/25 07:19 Patient weight: normal Heart: regular rate and rhythm Lungs: decreased breath sounds Airway: Mallampati scale class II Neurological: alert and oriented Last oral intake: >/= 8 hours ASA classification: III Emergent: no Anesthetic plan: proceed Anesthesia type and monitoring: general ETT and standard monitoring Results Review: All pre-operative results and documents have been reviewed as part of the pre-operative evaluation. Informed Consent: The patient's anesthetic plan and its attendant risks and benefits were discussed with the patient/family/POA. Questions were solicited and answers provided to the satisfaction of the patient/family/POA.
[2025-01-10] MEDS: ACETAMINOPHEN 500 MG TABLET 1000 MG PO (08:20)
[2025-01-10] MEDS: LACTATED RINGERS 1,000 ML 30 ML IV CONT ×2 (08:20→12:59)
[2025-01-10] MEDS: KETOROLAC 15 MG/ML VIAL (*BKC) IV PUSH (08:20)
--- NOTE | 2025-01-10 08:35 | WPDHPUPDATE1 ---
History and Physical Update Update Date/Time: 01/10/25 08:35 History and Physical has been reviewed, including an updated exam of the patient. There are NO changes in the patient's condition. Risks, benefits, and alternatives have been discussed and questions answered. Patient agrees to proceed with procedure.
--- NOTE | 2025-01-10 08:35 | PM.IMHP ---
H&P: HPI History of Present Illness Date/Time: 01/10/25 08:35 Chief Complaint: Sigmoid stricture Narrative: This is a 64-year-old man who presents for sigmoid colectomy. He has a history of diverticulitis and over the past year has developed a stricture. He reports no signs of recurrent diverticulitis but stool caliber has become more narrow. He had a contrast enema which did show evidence of partial obstruction with dilated bowel proximal to the area of stricture. Review of Systems Review of Systems: All systems reviewed & are unremarkable except as noted in HPI and below Constitutional: Constitutional: Denies chills, Denies fever(s), Denies headache(s) and Denies weight loss Eyes: Eyes: Denies change in vision ENT: Denies dizziness, Denies headache(s), Denies neck mass and Denies throat swelling Cardiovascular: Cardiovascular: Denies chest pain, Denies lightheadedness and Denies dyspnea Respiratory: Respiratory: Denies cough, Denies dyspnea and Denies wheezing Gastrointestinal: Gastrointestinal: Denies abdominal pain, Denies change in bowel habits, Denies nausea and Denies vomiting Genitourinary: Genitourinary: Denies hematuria and Denies dysuria Musculoskeletal: Musculoskeletal: Reports as per HPI Integumentary/Breasts: Skin/Breast: Reports as per HPI Neurologic: Denies dizziness and Denies headache(s) Allergic/Immunologic: Allergic/Immunologic: Denies throat swelling and Denies wheezing [facility] Past Medical History Medical History Tobacco dependence Diverticulitis Irritable bowel syndrome Dyslipidemia Overactive bladder Prostate cancer Prostatectomy 2008, with recurrence 2011-treated with radiation Lung nodules Surgical History Surgical History History of prostatectomy (2008) History of colonoscopy History of inguinal hernia repair Family History Family History Mother Hypertension Carcinoma of colon, Onset Age: 73 Family history of primary malignant neoplasm of liver Sibling , CVA occurred with CABG Hypertension Family history of diabetes mellitus in first degree relative Family history of renal failure Diabetes mellitus Family history of kidney disease Cerebrovascular accident Father Cerebrovascular accident Acute myocardial infarction Diabetes mellitus Social History Social History Social History: 01/02/25 very confident with medical forms Surrogate medical decision maker: Trinity Hager, spouse. Code status: Do not resuscitate. Smoking packs per day: 1.25 Smoking cigarettes per day: 25.0 Years smoked: 42 Smoking pack-years: 52.50 Smoking status: Former smoker Tobacco type: cigarettes Second hand tobacco smoke exposure: Yes Smoking end date: 10/14/24 Alcohol intake: current Drinks per week: 2 Substance use: never Substance use type: does not use Do You Feel Safe in your Home?: Yes Lack of Transportation: No Lack of Food: Never True Current Housing: I Have Housing Concerned About Future Housing: No Difficulty Paying Gas/Electric Bills: No Difficulty Paying for Meds: No Currently Unemployed: No Education: High School Diploma/GED Difficulty w/ Childcare or Family Care: No Living arrangements: with family Additional living arrangements comments: Occupation/Education: occupation Spiritual care concerns: No Agree to blood products: Yes Meds Home Medications and Allergies Home Medications ?Medication ?Instructions ?Recorded ?Confirmed ?Type latanoprost (PF) 0.005 % eye drops 1 drop ophthalmic (eye) DAILY 07/18/19 01/04/25 History albuterol sulfate 90 mcg/actuation 1 - 2 puff inhalation Q4-6H PRN 11/21/22 01/04/25 Rx aerosol inhaler (ProAir HFA) shortness of breath or wheezing #8.5 grams famotidine 20 mg tablet (Pepcid) 20 - 40 mg (1 - 2 x 20 mg) PO 05/30/24 01/04/25 Rx DAILY #90 tabs fluticasone furoate 100 See Rx Instructions .Route 06/09/24 01/04/25 Rx mcg-vilanterol 25 mcg/dose .COMPLEX #180 ea inhalation powder apixaban 5 mg tablet (Eliquis) 5 mg PO BID #180 tabs 08/23/24 01/04/25 Rx dicyclomine 20 mg tablet 20 mg PO TID #270 tabs 08/23/24 01/04/25 Rx tolterodine 4 mg capsule,extended 4 mg PO DAILY #90 caps 08/23/24 01/04/25 Rx release 24 hr (Detrol LA) ciprofloxacin HCl 500 mg tablet 500 mg PO .COMPLEX #1 tablet 11/21/24 01/04/25 Rx metronidazole 500 mg tablet 500 mg PO .COMPLEX #3 tabs 11/21/24 01/04/25 Rx Allergies Allergy/AdvReac Type Severity Reaction Status Date / Time adhesive tape Allergy Unknown BLISTERS/ Verified 01/04/25 11:16 SKIN PEELING OFF morphine Allergy Itching Verified 01/04/25 11:16 meperidine AdvReac Unknown Rash Verified 01/04/25 11:16 Exam Const: General: no acute distress and alert Orientation/consciousness: patient oriented x3 HENMT: Head: normocephalic and atraumatic Ears: hearing grossly normal bilaterally Face/Nose/Sinus: Normal nares present Mouth: Yes Normal oral and palatal mucosa present Eyes: Periorbital: periorbital findings normal Sclera: sclerae normal EOM: EOMs intact bilaterally Neck: Neck: normal visual inspection, no lymphadenopathy and trachea midline Chest: Chest palpation & inspection: normal inspection of the chest Resp: Effort & Inspection: normal respiratory effort Auscultation: clear to auscultation bilaterally Cardio: Jugular venous distension: no JVD Rate: regular rate Rhythm: regular rhythm Heart sounds: S1 normal heart sound present and S2 normal heart sound present Peripheral pulses: Peripheral pulses 2+ throughout GI: Inspection: normal to inspection GI Palp: Yes Soft to palpation, No Tenderness to palpation present (GI), No Guarding due to palpation present (GI) and No Rebound tenderness present Percussion: Yes normal to percussion Auscultation: normal bowel sounds : General: Yes no CVA tenderness Back/Spine/Pelvis: Back: no CVA tenderness Neuro: General: patient oriented x3, no focal motor deficits and CN's II-XI intact bilaterally Cognition (Neuro): normal cognition Speech: normal speech Motor exam (neuro): 5/5 motor strength present throughout Extrem: General: capillary refill normal and no clubbing, cyanosis or edema Assessment and Plan Assessment and plan (1) Sigmoid stricture: Code(s): K56.699 - Other intestinal obstruction unspecified as to partial versus complete obstruction Status: Acute Assessment and Plan: I have recommended laparoscopic sigmoid colectomy, da Yamil assisted. I have discussed the procedure, risks, benefits, and alternatives with the patient. All questions answered. No changes since last seen in office. (2) Diverticulitis of large intestine with perforation without abscess: Qualifiers: Diverticulitis bleeding: without bleeding Qualified Code(s): K57.20 - Diverticulitis of large intestine with perforation and abscess without bleeding Code(s): K57.20 - Diverticulitis of large intestine with perforation and abscess without bleeding Status: Acute (3) Chronic anticoagulation: Code(s): Z79.01 - skilled nursing (current) use of anticoagulants Status: Acute (4) COPD (chronic obstructive pulmonary disease): Qualifiers: COPD type: unspecified COPD Qualified Code(s): J44.9 - Chronic obstructive pulmonary disease, unspecified Code(s): J44.9 - Chronic obstructive pulmonary disease, unspecified Status: Acute
[2025-01-10] MEDS: ceFAZolin 2 GM/D5W 50 ML 2 GM/50 ML BAG IVPB (09:26)
[2025-01-10] MEDS: metroNIDAZOLE 500 MG/ISO 100ML 500 MG/100 ML BAG 100 MG IVPB (09:35)
[2025-01-10] MEDS: BUPIVACAINE/EPINEPHRINE 0.5% 30 ML VIAL 60 ML INFILTRATE (10:03)
--- NOTE | 2025-01-10 13:07 | P.OP_ITS ---
Procedure Note - Detailed Date of Procedure 01/10/25 Pre-op Diagnosis Sigmoid Stricture, Diverticulitis Post-op Diagnosis Same Procedure Performed Laparoscopic sigmoid colectomy with colorectal anastomosis, da Yamil assisted Surgeon Best Storm, DO Anesthesia General and Local (0.5% bupivacaine with epi) Indications This is a 64-year-old man who presented with a sigmoid stricture secondary to a prior episodes of diverticulitis. 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 Follow-up colonoscopy be a few months later showed evidence of a sigmoid stricture. He then had a repeat colonoscopy about 2 months ago that still showed a persistent stricture that was only able to be traversed with an EGD scope. He was also noticing some narrowed stools. Discussed risks of complete obstruction from this area of stricture if left untreated. Decision was made to proceed with robotic assisted laparoscopic sigmoid colectomy, possible open. Findings Robotic assisted laparoscopic sigmoid colectomy was performed. The sigmoid colon had an area of adhesion down to the pelvis just to the right of the midline. This adhesion appeared to be densely tethered to the peritoneum but did not appear to be involving the bladder. This also appeared to be the area of the stricture. The rectum appeared healthy just distal to this area. The mid rectum was chosen as the transection point just beyond the rectosigmoid junction. A high ligation of the inferior mesenteric artery was also performed. After completing the dissection up to the proximal and distal transection points, I then assessed the vascular perfusion to these areas with indocyanine green. The anticipated resection locations appeared to have excellent blood flow. A 25 mm end-to-side colorectal anastomosis was then performed. Leak test was performed and there was no evidence of air bubbles leaking from the anastomosis. The sigmoid colon was sent to the lab for pathology. Description of Procedure Procedure as well as risks, benefits, and alternatives were discussed with the patient. Written consent was obtained and placed in chart prior to procedure. Patient was brought back to surgical suite. He was placed supine on operating table. Time-out was done to confirm patient and procedure. He was then intubated by the anesthesia department. He was then repositioned into a modified lithotomy position. His rectal area was prepped and draped in sterile fashion using Betadine prep and her abdomen was prepped and draped in sterile fashion using chlorhexidine prep. A 4 cm transverse mini Pfannenstiel incision was made using a 15 blade scalpel. Electrocautery was used for hemostasis and for dissection through the subcutaneous tissue. The anterior rectus sheath was identified and incised transversely using electrocautery. The rectus muscle was carefully dissected off of the fascia using blunt dissection and electrocautery. The peritoneum was then incised using electrocautery vertically. A small Stepan wound protector was then placed and a 5 mm port was placed with the wound protector twisted shut around it. Carbon dioxide insufflation was then utilized for pneumoperitoneum. A 8 mm incision was made in the right upper quadrant and a 8 mm AirSeal trocar was advanced through the abdominal layers under direct visualization. Camera w as inserted and his abdomen was inspected laparoscopically. No immediate abnormalities were identified. The patient was placed in steep Trendelenburg position. A 12 mm incision was made in the right lower quadrant about 2 cm medial to the ASIS, and a 12 mm trocar was inserted under direct visualization. Three more 8 mm incisions were placed and 8 mm ports were placed under direct visualization on an oblique angle going up towards the left upper quadrant. 0.5% bupivacaine with epinephrine was infiltrated locally around each port site. A careful thorough examination of the abdominal cavity was performed. The omentum was reflected cephalad over the stomach. The cecum and small bowel were reflected out of the pelvis. The robotic arms were then brought up to the patient's bedside in secured to the ports. The robotic camera and instruments were then inserted and then I moved over to the robotic console and took control of the camera and instruments. There were some sigmoid colon adhesions down into the pelvis and 1 area appeared to be densely adherent just to the right of midline in the suprapubic region. Careful dissection was performed using scissors with electrocautery to free up all of the adhesions in order to mobilize the sigmoid colon out of the pelvis. After carefully inspecting the abdominal cavity, I then lifted the rectosigmoid junction anteriorly to tent up the inferior mesenteric artery pedicle. A medial to lateral dissection was performed using scissors with electrocautery. I scored the peritoneum along the undersurface of the superior hemorrhoidal vessel at the sacral promontory and entered into the avascular space. I carefully dissected within the space to dissect the hypogastric nerves posteriorly and dissect laterally until the left ureter was identified. The ureter was identified and protected in its position throughout its course. I continued the dissection proximally on the inferior mesenteric artery using scissors with electrocautery. I carefully encircled the inferior mesenteric artery about 2 cm distal to the origin. I then ensured that the left ureter was still in its proper position and then ligated and divided the inferior mesenteric artery using a 45 mm white load stapler. I then continued the medial to lateral dissection until I reached the lateral peritoneal reflection the sigmoid and descending colon. There appeared to be adequate mobilization of the descending colon and I did not require mobilization of the splenic flexure. I then retracted the sigmoid and descending colon medially and took down the lateral peritoneal attachments using scissors with electrocautery. While doing this I entered into the previous plane of dissection from the medial to lateral approach. I ensured that the left ureter was protected in its position throughout its course. I then continued the distal dissection and took down the lateral attachments to the rectosigmoid junction and identified a point on the upper rectum that appeared healthy and viable and a good position for the distal transection. The mesorectum was taken down perpendicular to this point using the vessel sealer. The 45 mm blue load robotic stapler was then advanced across the rectum and then this was clamped and fired. The rectal stump was inspected and appeared healthy and viable. I then identified the descending colon at a point that appeared to come down in the pelvis without any tension. This was chosen as the proximal transection point. The mesocolon was taken down up to this point using the vessel sealer. 3 cc of ICG was then given intravenously and vascular perfusion to the bowel was assessed using near infrared imaging. The site for the proximal transection was clearly visible with adequate perfusion as well as the rectal stump. I chose the location on the distal descending colon for anastomosis, and this appeared to come down into the pelvis without any tension. A small colotomy was made on the anti mesenteric surface at the site for anvil to come out for an end to side anastomosis. I then made a colotomy along the distal side of the bowel that was to be resected a 25 mm was placed within the abdominal cavity through the wound protector. The anvil was then advanced through the colotomy out to the exit site on the anti mesenteric surface. The anvil appeared to be sitting in proper position a 45 mm blue load stapler was then advanced across the distal descending colon about 2 cm distal to the anvil. The stapler was then fired then took a 2nd firing of the 45 mm blue load stapler to come completely across the colon at this point. The specimen was then placed in the right lower quadrant out of the pelvis. The anvil was then brought down into the pelvis and appeared to be coming down to the rectal stump without any tension. The EEA sizers were then advanced up the rectum to the staple line, and then the 25 mm EEA stapler was advanced all the way to the staple line. The pin of the stapler was opened just posterior to the staple line along the right corner of the staple line. The anvil was then attached to the stapler and the stapler was carefully closed. I ensured that the descending colon was not twisted along its path and no other tissue was closed within the stapler. Stapler was then fired to create our end to side anastomosis. Stapler and anvil were carefully removed. I then inspected the staple line and it appeared circumferential and the anastomotic rings appeared circumferential on the stapler. The anastomosis was reinforced 3-0 Vicryl seromuscular imbricating sutures along the lateral anterior surface. The descending colon was then pinched closed with a laparoscopic grasper. The rigid proctoscope was then inserted into the rectum and the pelvis was filled with sterile saline. Air was insufflated through the rigid proctoscope to dilate the anastomosis. No air bubbles were seen leaking from the anastomosis. The rigid proctoscope was then removed. One final inspection was then made around the abdominal cavity and no other abnormalities were identified. A laparoscopic clamp was then placed on the specimen for extraction. The camera and instruments were removed and the robotic arms were disengaged from the ports. The patient was then flattened out in bed. One final inspection was made around the abdominal cavity and no other abnormalities were noted. The 12 mm port was removed and the fascia was then closed using an 0 Vicryl suture with a Augustus-Wilton cone. The specimen was then advanced to the Pfannenstiel incision and then delivered through the wound protector and removed. I then inspected the abdomen around the Pfannenstiel incision and no other abnormalities were noted. The wound protector was then removed. The peritoneum was closed using 0 Vicryl running suture. The rectus muscle was reapproximated in the midline using 0 Vicryl simple interrupted sutures. The anterior rectus sheath was then reapproximated using 0 PDS running absorbable suture. Rodríguez's fascia was reapproximated using 3-0 Vicryl simple interrupted sutures. The remaining ports were then removed. The skin of the incisions was then reapproximated using 4-0 Monocryl running subcuticular suture. Exofin glue was then applied on top. The patient was then awakened from anesthesia, extubated, and transferred to recovery. Estimated Blood Loss 100 Pathology Yes (Sigmoid colon) Complications No immediate complications Condition Stable Disposition Floor [facility] Billing Surgery - Charge Forward: Surgery Billing
[2025-01-10] MEDS: fentaNYL CITRATE INJ (*CRX) 100 MCG/2 ML VIAL 25 MCG IV PUSH ×7 (13:14→13:40)
--- NOTE | 2025-01-10 14:16 | ADMGEN ---
This patient, Mike Schwarz, was admitted to Medical Room 257-01. Patient/family oriented to hospital policies and general routines including ID bracelet, bed and alarms, visiting hours, pain management, procedures, bathroom and other care routines, personal items, smoking policy, room service/diet, and visiting hours. Information on how to activate the Rapid Response Team has been discussed. Patient/Family are encouraged to report perceived risks to care and to ask questions if they do not understand what they are told or what they should do.
[2025-01-10] MEDS: oxyCODONE HCL (*CRX) 5 MG TAB IR PO ×2 (15:57→20:08)
[2025-01-10] MEDS: LACTATED RINGERS 1,000 ML 100 ML IV CONT (15:57)
[2025-01-10] MEDS: FLUTICASONE/SALMETEROL 115-21 MCG INHALER 1 PUFF 2 PUFF INHALATION (20:03)
[2025-01-10] MEDS: LATANOPROST 0.005% OP SOLN 2.5 ML BTL 1 DROP EACH EYE (20:08)
[2025-01-11] MEDS: ACETAMINOPHEN 500 MG TABLET 1000 MG PO ×4 (00:20→17:42)
[2025-01-11] MEDS: oxyCODONE HCL (*CRX) 5 MG TAB IR PO (00:21)
[2025-01-11] MEDS: LACTATED RINGERS 1,000 ML 100 ML IV CONT ×2 (00:25→09:56)
[2025-01-11 03:45] VITALS: BP 121/50; PULSE 100; RESP 18; TEMP 37.2; O2SAT 93
[2025-01-11 05:00] LABS: Hematocrit 39.1 % (42.0-52.0); Hemoglobin 12.9 g/dL (14.0-18.0); Mean Corpuscular Hemoglobin 30.6 pg (26-34); Mean Corpuscular Volume 92.9 fl (80-100); Mean Platelet Volume 10.1 fl (7.4-10.4); Platelet Count Result 169 k/mm3 (150-375); Red Blood Count 4.21 M/mm3 (4.6-6.20); Red Cell Distribution Width 13.8 % (11.5-14.5); White Blood Count 9.2 K/mm3 (4.5-10.0)
[2025-01-11 05:17] LABS: Anion Gap 5 mmol/L (4-12); Blood Urea Nitrogen 10 mg/dL (9-20); Calcium 8.4 mg/dL (8.4-10.2); Carbon Dioxide 25 mmol/L (22-30); Chloride 109 mmol/L (98-107); Estimated CRCL calculation 71 ml/min; Estimated Glomerular Filt Rate > 60; Glucose 97 mg/dL (65-110); Potassium 3.6 mmol/L (3.4-5.0); Sodium 139 mmol/L (137-145)
[2025-01-11] MEDS: oxyCODONE HCL (*CRX) 2.5 MG TAB IR PO ×4 (05:20→20:12)
[2025-01-11] MEDS: PANTOPRAZOLE 40 MG TABLET PO (08:47)
[2025-01-11] MEDS: TOLTERODINE TARTRATE LA 4 MG CAP.ER.24H PO (08:47)
[2025-01-11] MEDS: ENOXAPARIN 40 MG/0.4 ML SYRINGE SUB-Q (08:47)
[2025-01-11 10:15] VITALS: PULSE 95; RESP 16
[2025-01-11] MEDS: FLUTICASONE/SALMETEROL 115-21 MCG INHALER 1 PUFF 2 PUFF INHALATION (10:15)
[2025-01-11 11:54] VITALS: BP 124/70; PULSE 98; RESP 18; TEMP 36.9; O2SAT 96
[2025-01-11 13:26] VITALS: PULSE 95; RESP 16; O2SAT 94
--- NOTE | 2025-01-11 13:51 | P.PNGS_ITS ---
Progress Note: A&P Assessment and Plan (1) Sigmoid stricture: Code(s): K56.699 - Other intestinal obstruction unspecified as to partial versus complete obstruction Status: Acute Assessment and Plan: * Stop IV fluids, increase activity * Will advance diet tomorrow if continuing to do well * Final pathology pending (2) Diverticulitis of large intestine with perforation without abscess: Qualifiers: Diverticulitis bleeding: without bleeding Qualified Code(s): K57.20 - Diverticulitis of large intestine with perforation and abscess without bleeding Code(s): K57.20 - Diverticulitis of large intestine with perforation and abscess without bleeding Status: Acute (3) Chronic anticoagulation: Code(s): Z79.01 - terminal superintendent (current) use of anticoagulants Status: Acute Assessment and Plan: * Eliquis on hold. Lovenox for DVT prophylaxis. (4) COPD (chronic obstructive pulmonary disease): Qualifiers: COPD type: unspecified COPD Qualified Code(s): J44.9 - Chronic obstructive pulmonary disease, unspecified Code(s): J44.9 - Chronic obstructive pulmonary disease, unspecified Status: Acute Subjective Subjective Date/Time Seen: 01/11/25 13:51 Interval history: Bowels moving. tolerating full liquids. Had nausea this AM when he took pain meds on empty stomach. Otherwise to nausea. Up ambulating in halls. Exam GI: Inspection: incision (intact with glue) GI Palp: Yes Soft to palpation and Yes Tenderness to palpation present (GI) (Incisional) Percussion: Yes normal to percussion Auscultation: normal bowel sounds Objective Data Vital Signs Vital Signs: Vital Signs - 24 hr 01/10/25 14:15 01/10/25 14:30 01/10/25 14:50 Temperature 97.6 F 96.8 F L Pulse Rate 85 92 Respiratory Rate 14 14 Blood Pressure 128/66 132/85 Pulse Oximetry 97 94 97 Oxygen Delivery Room Air Fraction of Inspired Oxygen 01/10/25 15:00 01/10/25 16:00 01/10/25 19:45 Temperature 96.8 F L 96.3 F L 97.8 F Pulse Rate 71 89 95 Respiratory Rate 14 18 18 Blood Pressure 122/61 140/71 117/72 Pulse Oximetry 95 96 96 Oxygen Delivery Fraction of Inspired Oxygen 01/10/25 23:45 01/11/25 03:45 01/11/25 09:10 Temperature 99.4 F 98.9 F Pulse Rate 99 100 Respiratory Rate 18 18 Blood Pressure 92/78 L 121/50 L Pulse Oximetry 98 93 Oxygen Delivery Room Air Fraction of Inspired Oxygen 01/11/25 10:15 01/11/25 11:54 01/11/25 13:26 Temperature 98.4 F Pulse Rate 95 98 95 Respiratory Rate 16 18 16 Blood Pressure 124/70 Pulse Oximetry 96 94 Oxygen Delivery Room Air Fraction of Inspired Oxygen 21 Intake/Output Intake/Output: Intake & Output 01/08/25 01/09/25 01/10/25 01/11/25 23:59 23:59 23:59 23:59 Intake Total 540 2398.4 Output Total 400 2100 Balance 140 298.4 Meds/Results Medications: Active Medications Generic Name Dose Route Start Last Admin Trade Name Freq PRN Reason Stop Dose Admin Acetaminophen 1,000 mg 01/10/25 18:00 01/11/25 12:08 Acetaminophen 500 Mg Tablet PO 1,000 mg Q6HR VICENTE Administration Albuterol 2 puff 01/10/25 14:00 Albuterol Sulfate (*Sp) Aerosol 1 Puff INHALATION Q4-6H PRN shortness of breath or wheezing Enoxaparin Sodium 40 mg 01/11/25 09:00 01/11/25 08:47 Enoxaparin 40 Mg/0.4 Ml Syringe SUB-Q 40 mg DAILY VICENTE Administration Hydromorphone HCl 1 mg 01/10/25 14:00 Hydromorphone Hcl Inj (*Crx) 1 Mg/Ml Syr IV PUSH Q2H PRN Breakthrough Pain Rated 7-10 or NPO Hydromorphone HCl 0.5 mg 01/10/25 14:00 Hydromorphone Hcl Inj (*Crx) 1 Mg/Ml Syr IV PUSH Q2H PRN Breakthrough Pain Rated 4-6 or NPO Latanoprost 1 drop 01/10/25 21:00 01/10/25 20:08 Latanoprost 0.005% Op Soln 2.5 Ml Btl EACH EYE 1 drop HS VICENTE Administration Naloxone HCl 0.1 mg 01/10/25 14:00 Naloxone Hcl 0.4 Mg/Ml Vial IV PUSH Q2M PRN Opiate Reversal Ondansetron HCl 4 mg 01/10/25 14:00 Ondansetron Inj 4 Mg/2 Ml Vial IV PUSH Q4H PRN Nausea And Vomiting Oxycodone HCl 2.5 mg 01/10/25 14:00 01/11/25 09:55 Oxycodone Hcl (*Crx) 2.5 Mg Tab Ir PO 2.5 mg Q4H PRN Administration Pain Rated 4-6 Oxycodone HCl 5 mg 01/10/25 14:00 01/11/25 00:21 Oxycodone Hcl (*Crx) 5 Mg Tab Ir PO 5 mg Q4H PRN Administration Pain Rated 7-10 Pantoprazole Sodium 40 mg 01/11/25 09:00 01/11/25 08:47 Pantoprazole 40 Mg Tablet PO 40 mg QAM VICENTE Administration Fluticasone/Salmeterol 2 puff 01/10/25 20:00 01/11/25 10:15 Fluticasone/Salmeterol 115-21 Mcg Inhaler 1 Puff INHALATION 2 puff Q12HRT VICENTE Administration Tolterodine Tartrate 4 mg 01/11/25 09:00 01/11/25 08:47 Tolterodine Tartrate La 4 Mg Cap.Er.24h PO 4 mg DAILY VICENTE Administration Labs Labs: Laboratory Results - last 24 hr 01/11/25 04:37 WBC 9.2 RBC 4.21 L Hgb 12.9 L Hct 39.1 L MCV 92.9 MCH 30.6 MCHC 33.0 RDW 13.8 Plt Count 169 D MPV 10.1 Sodium 139 Potassium 3.6 Chloride 109 H Carbon Dioxide 25 Anion Gap 5 BUN 10 Creatinine 0.91 Estim Creat Clear Calc 71 Estimated GFR > 60 Glucose 97 Calcium 8.4
[2025-01-11 14:55] VITALS: BP 128/67; PULSE 97; RESP 20; TEMP 36.5; O2SAT 96
[2025-01-11] MEDS: LATANOPROST 0.005% OP SOLN 2.5 ML BTL 1 DROP EACH EYE (20:11)
[2025-01-11 20:55] VITALS: O2SAT 95
[2025-01-12] MEDS: ACETAMINOPHEN 500 MG TABLET 1000 MG PO ×5 (01:00→23:39)
[2025-01-12 05:20] LABS: Hematocrit 42.9 % (42.0-52.0); Mean Corpuscular HGB Conc 32.6 g/dl (32-36); Mean Corpuscular Hemoglobin 30.6 pg (26-34); Mean Corpuscular Volume 93.7 fl (80-100); Mean Platelet Volume 9.9 fl (7.4-10.4); Platelet Count Result 189 k/mm3 (150-375); Red Blood Count 4.58 M/mm3 (4.6-6.20); Red Cell Distribution Width 13.8 % (11.5-14.5); White Blood Count 8.8 K/mm3 (4.5-10.0)
[2025-01-12 05:40] LABS: Anion Gap 7 mmol/L (4-12); Blood Urea Nitrogen 9 mg/dL (9-20); Calcium 8.9 mg/dL (8.4-10.2); Carbon Dioxide 26 mmol/L (22-30); Chloride 107 mmol/L (98-107); Estimated CRCL calculation 74 ml/min; Estimated Glomerular Filt Rate > 60; Glucose 101 mg/dL (65-110); Potassium 3.6 mmol/L (3.4-5.0); Sodium 140 mmol/L (137-145)
[2025-01-12 06:30] VITALS: BP 121/61; PULSE 98; RESP 18; TEMP 36.8; O2SAT 96
[2025-01-12] MEDS: FLUTICASONE/SALMETEROL 115-21 MCG INHALER 1 PUFF 2 PUFF INHALATION ×2 (07:50→19:47)
[2025-01-12 07:52] VITALS: O2SAT 96
[2025-01-12] MEDS: PANTOPRAZOLE 40 MG TABLET PO (09:00)
[2025-01-12] MEDS: ENOXAPARIN 40 MG/0.4 ML SYRINGE SUB-Q (09:00)
[2025-01-12] MEDS: TOLTERODINE TARTRATE LA 4 MG CAP.ER.24H PO (09:00)
--- NOTE | 2025-01-12 11:03 | P.PNGS_ITS ---
Progress Note: A&P Assessment and Plan (1) Sigmoid stricture: Code(s): K56.699 - Other intestinal obstruction unspecified as to partial versus complete obstruction Status: Acute Assessment and Plan: * Bowel function returned. Tolerating activity and having minimal incisional pain. * Will advance to a low-fiber diet. 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 Lovenox for DVT prophylaxis. (4) COPD (chronic obstructive pulmonary disease): Qualifiers: COPD type: unspecified COPD Qualified Code(s): J44.9 - Chronic obstructive pulmonary disease, unspecified Code(s): J44.9 - Chronic obstructive pulmonary disease, unspecified Status: Acute Plan I have discussed the patient's case and plan of care with Dr. Storm. Subjective Subjective Date/Time Seen: 01/12/25 11:03 Post Op day: 2 (Laparoscopic sigmoid colectomy) Patient reports: no new complaints, pain is less, tolerating liquids well, voiding w/o difficulty, flatus, bowel movement and afebrile Interval history: Patient reports having minimal incisional pain today. He has only taken Tylenol for his pain since yesterday morning. No nausea or vomiting. Tolerating full liquids well. He also feels stronger today and has walked 4 laps around the halls. Exam Const: General: comfortable and no acute distress Orientation/consciousness: patient oriented x3 GI: Inspection: distended and incision (Dry and glue intact) GI Palp: Yes Soft to palpation, Yes Tenderness to palpation present (GI) (Expected incisional tenderness), No Guarding due to palpation present (GI), No Hernia present and No Rebound tenderness present Auscultation: normal bowel sounds Objective Data Vital Signs Vital Signs: Vital Signs - 24 hr 01/11/25 11:54 01/11/25 13:26 01/11/25 14:55 Temperature 98.4 F 97.7 F Pulse Rate 98 95 97 Respiratory Rate 18 16 20 Blood Pressure 124/70 128/67 Pulse Oximetry 96 94 96 Oxygen Delivery Room Air Fraction of Inspired Oxygen 21 01/11/25 20:00 01/11/25 20:55 01/12/25 06:30 Temperature 98.3 F Pulse Rate 98 Respiratory Rate 18 Blood Pressure 121/61 Pulse Oximetry 95 96 Oxygen Delivery Room Air Room Air Fraction of Inspired Oxygen 01/12/25 07:52 01/12/25 09:15 Temperature Pulse Rate Respiratory Rate Blood Pressure Pulse Oximetry 96 Oxygen Delivery Room Air Room Air Fraction of Inspired Oxygen Intake/Output Intake/Output: Intake & Output 01/09/25 01/10/25 01/11/25 01/12/25 23:59 23:59 23:59 23:59 Intake Total 540 3178.4 240 Output Total 400 2750 1290 Balance 140 428.4 -1050 Meds/Results Medications: Active Medications Generic Name Dose Route Start Last Admin Trade Name Freq PRN Reason Stop Dose Admin Acetaminophen 1,000 mg 01/10/25 18:00 01/12/25 05:29 Acetaminophen 500 Mg Tablet PO 1,000 mg Q6HR VICENTE Administration Albuterol 2 puff 01/10/25 14:00 Albuterol Sulfate (*Sp) Aerosol 1 Puff INHALATION Q4-6H PRN shortness of breath or wheezing Enoxaparin Sodium 40 mg 01/11/25 09:00 01/12/25 09:00 Enoxaparin 40 Mg/0.4 Ml Syringe SUB-Q 40 mg DAILY VICENTE Administration Hydromorphone HCl 1 mg 01/10/25 14:00 Hydromorphone Hcl Inj (*Crx) 1 Mg/Ml Syr IV PUSH Q2H PRN Breakthrough Pain Rated 7-10 or NPO Hydromorphone HCl 0.5 mg 01/10/25 14:00 Hydromorphone Hcl Inj (*Crx) 1 Mg/Ml Syr IV PUSH Q2H PRN Breakthrough Pain Rated 4-6 or NPO Latanoprost 1 drop 01/10/25 21:00 01/11/25 20:11 Latanoprost 0.005% Op Soln 2.5 Ml Btl EACH EYE 1 drop HS VICENTE Administration Naloxone HCl 0.1 mg 01/10/25 14:00 Naloxone Hcl 0.4 Mg/Ml Vial IV PUSH Q2M PRN Opiate Reversal Ondansetron HCl 4 mg 01/10/25 14:00 Ondansetron Inj 4 Mg/2 Ml Vial IV PUSH Q4H PRN Nausea And Vomiting Oxycodone HCl 2.5 mg 01/10/25 14:00 01/11/25 20:12 Oxycodone Hcl (*Crx) 2.5 Mg Tab Ir PO 2.5 mg Q4H PRN Administration Pain Rated 4-6 Oxycodone HCl 5 mg 01/10/25 14:00 01/11/25 00:21 Oxycodone Hcl (*Crx) 5 Mg Tab Ir PO 5 mg Q4H PRN Administration Pain Rated 7-10 Pantoprazole Sodium 40 mg 01/11/25 09:00 01/12/25 09:00 Pantoprazole 40 Mg Tablet PO 40 mg QAM VICENTE Administration Fluticasone/Salmeterol 2 puff 01/10/25 20:00 01/12/25 07:50 Fluticasone/Salmeterol 115-21 Mcg Inhaler 1 Puff INHALATION 2 puff Q12HRT VICENTE Administration Tolterodine Tartrate 4 mg 01/11/25 09:00 01/12/25 09:00 Tolterodine Tartrate La 4 Mg Cap.Er.24h PO 4 mg DAILY VICENTE Administration Labs Labs: Laboratory Results - last 24 hr 01/12/25 05:09 WBC 8.8 RBC 4.58 L Hgb 14.0 Hct 42.9 MCV 93.7 MCH 30.6 MCHC 32.6 RDW 13.8 Plt Count 189 MPV 9.9 Sodium 140 Potassium 3.6 Chloride 107 Carbon Dioxide 26 Anion Gap 7 BUN 9 Creatinine 0.86 Estim Creat Clear Calc 74 Estimated GFR > 60 Glucose 101 Calcium 8.9
[2025-01-12 14:27] VITALS: BP 131/65; PULSE 104; RESP 18; TEMP 37.4; O2SAT 97
[2025-01-12 20:01] VITALS: PULSE 111; O2SAT 97
[2025-01-12] MEDS: LATANOPROST 0.005% OP SOLN 2.5 ML BTL 1 DROP EACH EYE (20:21)
[2025-01-12 22:06] VITALS: BP 122/92; PULSE 116; RESP 18; TEMP 37.3; O2SAT 98
[2025-01-13 05:14] LABS: Hematocrit 38.7 % (42.0-52.0); Hemoglobin 12.6 g/dL (14.0-18.0); Mean Corpuscular HGB Conc 32.6 g/dl (32-36); Mean Corpuscular Hemoglobin 30.9 pg (26-34); Mean Corpuscular Volume 94.9 fl (80-100); Mean Platelet Volume 9.8 fl (7.4-10.4); Platelet Count Result 181 k/mm3 (150-375); Red Blood Count 4.08 M/mm3 (4.6-6.20); Red Cell Distribution Width 13.6 % (11.5-14.5); White Blood Count 6.5 K/mm3 (4.5-10.0)
[2025-01-13 05:30] LABS: Anion Gap 3 mmol/L (4-12); Blood Urea Nitrogen 12 mg/dL (9-20); Calcium 8.8 mg/dL (8.4-10.2); Carbon Dioxide 27 mmol/L (22-30); Chloride 109 mmol/L (98-107); Estimated CRCL calculation 68 ml/min; Estimated Glomerular Filt Rate > 60; Glucose 101 mg/dL (65-110); Potassium 3.9 mmol/L (3.4-5.0); Sodium 139 mmol/L (137-145)
[2025-01-13] MEDS: ACETAMINOPHEN 500 MG TABLET 1000 MG PO (05:56)
[2025-01-13 06:06] VITALS: BP 110/64; PULSE 90; RESP 18; TEMP 37.1; O2SAT 95
[2025-01-13 07:53] VITALS: O2SAT 94
[2025-01-13] MEDS: FLUTICASONE/SALMETEROL 115-21 MCG INHALER 1 PUFF 2 PUFF INHALATION (07:53)
--- NOTE | 2025-01-13 08:36 | P.DS_ITS ---
DS: Admitting Diagnosis Discharge Date 01/13/2025 Admitting Diagnosis sigmoid stricture, diverticulitis, COPD, long-term anticoagulation DS: Discharge Diagnosis Discharge Diagnosis (1) Sigmoid stricture: Code(s): K56.699 - Other intestinal obstruction unspecified as to partial versus complete obstruction Status: Acute (2) Diverticulitis of large intestine with perforation without abscess: Qualifiers: Diverticulitis bleeding: without bleeding Qualified Code(s): K57.20 - Diverticulitis of large intestine with perforation and abscess without bleeding Code(s): K57.20 - Diverticulitis of large intestine with perforation and abscess without bleeding Status: Acute (3) COPD (chronic obstructive pulmonary disease): Qualifiers: COPD type: unspecified COPD Qualified Code(s): J44.9 - Chronic obstructive pulmonary disease, unspecified Code(s): J44.9 - Chronic obstructive pulmonary disease, unspecified Status: Acute (4) Chronic anticoagulation: Code(s): Z79.01 - ferry terminal supervisor (current) use of anticoagulants Status: Acute DS: Summary Hospital Course Reason for hospitalization: sigmoid stricture Hospital Course: this is a 64-year-old man who presented for sigmoid colectomy for a chronic sigmoid stricture. He underwent robotic assisted laparoscopic sigmoid colectomy with colorectal anastomosis on 01/10/2025. He was then placed in the hospital postoperatively for recovery. He was started on full liquid diet. Pain was controlled with p.o. and IV pain medications. His activity was gradually advanced as tolerated. On postop day 1 he was already tolerating full liquids and having some bowel function. On postop day 2 he was advanced to a soft regular diet. He was ambulating in the halls. He was requiring minimal pain meds at this point and was only taking in oral Tylenol. Postop day 3 he continued to remaining hemodynamically stable and was tolerating a soft regular diet. Pathology showed evidence of diverticulitis with stricture but no other abnormalities. He was discharged on 01/13/2025. Status at Discharge Functional status at discharge: independent ambulation Overall status at discharge: patient is progressing back to baseline Time Spent with Patient Time attestation: Total time spent providing and/or coordinating discharge services: Time spent: Less than 30 minutes Exam Const: General: comfortable and no acute distress Orientation/consciousness: patient oriented x3 Resp: Effort & Inspection: normal respiratory effort Auscultation: clear to auscultation bilaterally Cardio: Rate: regular rate Rhythm: regular rhythm Heart sounds: S1 normal heart sound present and S2 normal heart sound present GI: Inspection: non-distended and incision (intact with glue) GI Palp: Yes Soft to palpation, No Tenderness to palpation present (GI), No Guarding due to palpation present (GI) and No Rebound tenderness present DS: Data Data Completed and Pending Completed studies during hospitalization: Pending at discharge 01/10/25 12:40 Surgical [PTH] Routine Final Diagnosis Large intestine, sigmoid colon, resection: - Diverticular disease with serosal adhesions and stricture - Margins viable Reviewed and Electronically Signed by: Sanchez Patricio MD 01/12/25 1212 Labs on day of discharge: Labs from last 24 hours 01/13/25 04:49 WBC 6.5 RBC 4.08 L Hgb 12.6 L Hct 38.7 L MCV 94.9 MCH 30.9 MCHC 32.6 RDW 13.6 Plt Count 181 MPV 9.8 Sodium 139 Potassium 3.9 Chloride 109 H Carbon Dioxide 27 Anion Gap 3 L BUN 12 Creatinine 0.95 Estim Creat Clear Calc 68 Estimated GFR > 60 Glucose 101 Calcium 8.8 Discharge Plan Discharge Attending physician on discharge: Best Storm Discharging Clinician: Best Storm Patient Disposition: Home Activity: other - see discharge instructions Diet: other - see discharge instructions Wound Care Instructions: other - see discharge instructions Discharge Instructions: * Continue soft diet for 1 more week * no lifting greater than 10 lb for the next 6 weeks * may drive in 2 days * okay to shower, no bathing or soaking underwater for 2 more weeks * Call office for increasing abdominal pain, fevers, difficulties with bowel movements, or other problems with incisions * OK to resume Eliquis this evening Patient Instructions: Antibiotic Form, Apixaban (By mouth) Patient Language: Lao Stand Alone Forms: General Discharge Information Follow-up/Referrals: Best Storm DO [Physician] - 01/26/25 1:45 pm Discharge Medications: No Action latanoprost (PF) 0.005 % drops 1 drop EACH EYE DAILY Eliquis 5 mg tablet 5 mg PO BID Qty: 180 0RF Patient Comments: HOLD [address] Storm dicyclomine 20 mg tablet 20 mg PO TID Qty: 270 0RF tolterodine [Detrol LA] 4 mg capsule,extended release 24hr 4 mg PO DAILY Qty: 90 1RF famotidine [Pepcid] 20 mg tablet 20 - 40 mg PO DAILY Qty: 90 0RF metronidazole 500 mg tablet 500 mg PO .COMPLEX Qty: 3 0RF Rx Instructions: 500 mg orally at 1:00pm, at 2:00pm, and at 11:00pm; ciprofloxacin HCl 500 mg tablet 500 mg PO .COMPLEX Qty: 1 0RF Rx Instructions: 500 mg orally at 2:00pm; albuterol sulfate [ProAir HFA] 90 mcg/actuation HFA aerosol inhaler 1 - 2 puff INHALATION Q4-6H PRN (Reason: shortness of breath or wheezing) Qty: 8.5 5RF fluticasone furoate-vilanterol 100-25 mcg/dose blister with device See Rx Instructions .ROUTE .COMPLEX Qty: 180 1RF Dose Instruction: USE PUFF EVERY DAY. RINSE MOUTH WITH WATER AND SPIT AFTER EACH USE Rx Instructions: USE PUFF EVERY DAY. RINSE MOUTH WITH WATER AND SPIT AFTER EACH USE Date of admission: 01/10/25 14:00 Primary Care Provider: Kiesha Marino Admitting Provider: Best Storm Attending physician on admission: Best Storm Condition: Improved
[2025-01-13] MEDS: PANTOPRAZOLE 40 MG TABLET PO (09:16)
[2025-01-13] MEDS: TOLTERODINE TARTRATE LA 4 MG CAP.ER.24H PO (09:16)
[2025-01-13] MEDS: ENOXAPARIN 40 MG/0.4 ML SYRINGE SUB-Q (09:16)
== END 2025-01-13 11:15 | disposition home or self-care (01) | DRG 331 ==
LOC: ANH2MED 14:04
PROVIDERS: Admitting Provider Surgery; PCP Nurse Practitioner Family; Visit Provider Surgery
PROC: 0DTN4ZZ Resection of Sigmoid Colon, Percutaneous Endoscopic Approach (ICD-10-PCS; principal; 2025-01-10 09:00)
DX: K57.20 Diverticulitis of large intestine with perforation and abscess without bleeding (principal); J44.9 Chronic obstructive pulmonary disease, unspecified; E78.5 Hyperlipidemia, unspecified; N32.81 Overactive bladder; R91.8 Other nonspecific abnormal finding of lung field; Z79.01 Long term (current) use of anticoagulants; Z85.46 Personal history of malignant neoplasm of prostate; Z87.891 Personal history of nicotine dependence
CPT/HCPCS: 36415; 80048; 85027; 86850; 86900; 86901; 88309; 94640; A9270; C1729; J0690; J1596; J1650; J1836; J1885; J2250; J2405; J2704; J2710; J3010; J7030; J7120

== ENCOUNTER 2025-05-22 00:34 | Day surgery (SDC) | payer OTHER, SELFPAY ==
[2025-05-08 14:59] VITALS: BMI 25.6
--- OUTSIDE RECORDS SUMMARY | 2025-05-22 00:36 | XMS_ITS | Clinical Summary ---
Author Organization [facility] Address [address] [place] [address] Care Team Providers Care Talent Acquisition Relationship Manager Name Role Phone Willi Lopez MD Primary Care Provider [phone] Allergies Active Allergy Reactions Criticality Noted Date [...] 4:37 PM CDT Height 172.7 cm (5' 8) 03/22/2024 4:37 PM CDT Body Mass Index 19.77 03/22/2024 4:37 PM CDT Plan of Treatment Health Maintenance Due Date Last Done Comments Annual Physical 1963 Hepatitis C 1979 DTaP, Tdap and Td Vaccines ( 1 - Tdap) 1980 Pneumococcal Vaccine: 50+ Ye ars (1 of 2 - PCV) 1980 Zoster Vaccines (1 of 2) 2011 PHQ-2 (Physician Marshall) 08/24/2024 02/09/2024 COVID-19 Vaccine ( - 2023-2 5 season) 2025 Colorectal Cancer Screening Flex Sig (5 Years) [...] patient's age to complete [place] [address] [facility] Care Teams Talent Acquisition Relationship Manager Relationship Specialty Start Date End Date Willi Lopez MD PCP - General 10/14/13
--- OUTSIDE RECORDS SUMMARY | 2025-05-22 00:36 | XMS_ITS | Clinical Summary ---
Author Organization [facility] Address [address] [place] [place] [address] Care Team Providers Care Science Tutor Name Role Phone Willi Lopez MD Primary Care Provider [phone] Corina Chacko RN Unavailable [phone] Source Comments [facility] Affiliates and Associated Physician Practices is amultiple site organization consisting of ambulatory clinics and hospital sitesin [place], [place], [place] and [place]. This disclosure is being madepursuant to the Care Everywhere program and may not contain all information available regarding this patient. 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 Gender Identity Not on file Sexual Orientation [...] 1:06 AM CDT Height 172.7 cm (5' 7.99) 02/07/2015 8:13 PM CD T Body Mass [...] 2011 ZOSTER VACCINE (1 of 2) 2011 DEPRESSION SCREENING 08/24/2024 COVID-19 VACCINE (1 - 2023-2 5 season) 2025 INFLUENZA VACCINE (#1) 2025 Respiratory Syncytial Virus (RSV) Vaccine Pt: [...] / Payer (Ef fective for All Dates) Name:KarishmaYosef ba Emily Member ID:Not on file Relation to Subscriber:Not on file Name:YOSEF SCHWARZ Subscriber ID:Not on file (Home) Address: [address] [place] [address] Payer ID:Not on file Group ID:Not on file Type:Self Pay Address: [facility] Advance Directives * Full Code (Latest Code Status on File) Date Activated Date Inactivated Comments 02/08/2015 12:55 AM 02/09/2015 6:57 PM Care Teams Science Tutor Relationship Specialty Start Date End Date Willi Lopez MD [address] [place] [address] [place] [id number] PCP - General Internal Medicine 02/07/15 Corina Chacko, GERARD Waiter/Waitress Second Class 02/08/15
[2025-05-22 11:11] VITALS: BP 164/90; PULSE 82; RESP 16; TEMP 36.2; O2SAT 98; BMI 25.8
--- NOTE | 2025-05-22 11:15 | WPDANESEPPF ---
Anes - Initial Pre Proc Eval Procedure: Operation Date: 05/22/25 12:30 Proposed Procedures p Esophagogastroduodenoscopy - Musa Castillo MD Date/Time: 05/22/25 11:15 Surgeon: Musa Castillo MD Pre Op Diagnosis: dysphagia Patient Data Age: 64 Gender: M Height: 1.73 m Weight: 77.1 kg Last Vital Signs Temp 97.2 F L 05/22/25 11:11 Pulse 82 05/22/25 11:11 Resp 16 05/22/25 11:11 BP 164/90 H 05/22/25 11:11 Pulse Ox 98 05/22/25 11:11 O2 Del Method Room Air 05/22/25 11:11 Allergies Allergy/AdvReac Type Severity Reaction Status Date / Time adhesive tape Allergy Unknown BLISTERS/ Verified 05/22/25 11:10 SKIN PEELING OFF morphine Allergy Itching Verified 05/22/25 11:10 meperidine AdvReac Unknown Rash Verified 05/22/25 11:10 Home Medications ?Medication ?Instructions ?Recorded ?Confirmed ?Type latanoprost (PF) 0.005 % eye drops 1 drop ophthalmic (eye) DAILY 07/18/19 05/22/25 History albuterol sulfate 90 mcg/actuation 1 - 2 puff inhalation Q4-6H PRN 11/21/22 05/08/25 Rx aerosol inhaler (ProAir HFA) shortness of breath or wheezing #8.5 grams fluticasone furoate 100 See Rx Instructions .Route 06/09/24 05/22/25 Rx mcg-vilanterol 25 mcg/dose .COMPLEX #180 ea inhalation powder apixaban 5 mg tablet (Eliquis) 5 mg PO BID #180 tabs 08/23/24 05/22/25 Rx tolterodine 4 mg capsule,extended 4 mg PO DAILY #90 caps 08/23/24 05/22/25 Rx release 24 hr (Detrol LA) dicyclomine 20 mg tablet 20 mg PO TID #270 tabs 03/27/25 05/22/25 Rx pantoprazole 40 mg tablet,delayed 40 mg PO QAM #30 tabs 04/17/25 05/22/25 Rx release Patient hx anesthesia problems: none Family hx anesthesia problems: none Results Review: All pre-operative results and documents have been reviewed as part of the pre-operative evaluation. [facility] Past Medical History Medical History Tobacco dependence Diverticulitis Irritable bowel syndrome Dyslipidemia Overactive bladder Prostate cancer Prostatectomy 2008, with recurrence 2011-treated with radiation Lung nodules Surgical History Surgical History History of colectomy 01/10/25 Laparoscopic sigmoid colectomy with colorectal anastomosis, da Yamil assisted Dr. Storm History of prostatectomy (2008) History of colonoscopy History of inguinal hernia repair Family History Family History Mother Hypertension Carcinoma of colon, Onset Age: 73 Family history of primary malignant neoplasm of liver Sibling , CVA occurred with CABG Hypertension Family history of diabetes mellitus in first degree relative Family history of renal failure Diabetes mellitus Family history of kidney disease Cerebrovascular accident Father Cerebrovascular accident Acute myocardial infarction Diabetes mellitus Social History Social History Social History: 01/02/25 very confident with medical forms 03/08/25 Patient declined SDOH Surrogate medical decision maker: Trinity Hager, spouse. Code status: Do not resuscitate. Smoking packs per day: 1 Smoking cigarettes per day: 20.0 Years smoked: 40 Smoking pack-years: 40.00 Smoking status: Former smoker Tobacco type: cigarettes Second hand tobacco smoke exposure: Yes Alcohol intake: current Drinks per week: 2 Substance use: never Substance use type: does not use Do You Feel Safe in your Home?: Yes Lack of Transportation: No Lack of Food: Never True Current Housing: I Have Housing Concerned About Future Housing: No Difficulty Paying Gas/Electric Bills: No Difficulty Paying for Meds: No Currently Unemployed: No Education: High School Diploma/GED Difficulty w/ Childcare or Family Care: No Living arrangements: alone Additional living arrangements comments: Occupation/Education: occupation Spiritual care concerns: No Agree to blood products: Yes Anes - Eval Final PreProcedure Day of Procedure 05/22/25 11:15 Patient weight: normal Lungs: normal air movement Airway: Mallampati scale class II Neurological: alert and oriented Last oral intake: >/= 8 hours ASA classification: II Emergent: no Anesthetic plan: proceed Anesthesia type and monitoring: general GIVS and standard monitoring Results Review: All pre-operative results and documents have been reviewed as part of the pre-operative evaluation. Ex smoker, quit 09/2024. GERD. Informed Consent: The patient's anesthetic plan and its attendant risks and benefits were discussed with the patient/family/POA. Questions were solicited and answers provided to the satisfaction of the patient/family/POA.
[2025-05-22] MEDS: LACTATED RINGERS 1,000 ML 150 ML IV CONT (11:24)
[2025-05-22] MEDS: SIMETHICONE ORAL SUSPENSION 20 MG/0.3 ML 30 ML BOTTLE 1.8 ML PO (11:26)
--- NOTE | 2025-05-22 12:19 | PM.IMHP ---
H&P: HPI History of Present Illness Date/Time: 05/22/25 12:19 Chief Complaint: GERD-dysphagia Narrative: the patient has been complaining of longstanding heartburn intermittently, and occasional dysphagia to solid foods. He is now referred for EGD and possible dilatation if a stricture is found. Review of Systems Review of Systems: All systems reviewed & are unremarkable except as noted in HPI and below PMFSH Past Medical History Medical History Tobacco dependence Diverticulitis Irritable bowel syndrome Dyslipidemia Overactive bladder Prostate cancer Prostatectomy 2008, with recurrence 2011-treated with radiation Lung nodules Surgical History Surgical History History of colectomy 01/10/25 Laparoscopic sigmoid colectomy with colorectal anastomosis, da Yamil assisted Dr. Storm History of prostatectomy (2008) History of colonoscopy History of inguinal hernia repair Family History Family History Mother Hypertension Carcinoma of colon, Onset Age: 73 Family history of primary malignant neoplasm of liver Sibling , CVA occurred with CABG Hypertension Family history of diabetes mellitus in first degree relative Family history of renal failure Diabetes mellitus Family history of kidney disease Cerebrovascular accident Father Cerebrovascular accident Acute myocardial infarction Diabetes mellitus Social History Social History Social History: 01/02/25 very confident with medical forms 03/08/25 Patient declined SDOH Surrogate medical decision maker: Trinity Hager, spouse. Code status: Do not resuscitate. Smoking packs per day: 1 Smoking cigarettes per day: 20.0 Years smoked: 40 Smoking pack-years: 40.00 Smoking status: Former smoker Tobacco type: cigarettes Second hand tobacco smoke exposure: Yes Alcohol intake: current Drinks per week: 2 Substance use: never Substance use type: does not use Do You Feel Safe in your Home?: Yes Lack of Transportation: No Lack of Food: Never True Current Housing: I Have Housing Concerned About Future Housing: No Difficulty Paying Gas/Electric Bills: No Difficulty Paying for Meds: No Currently Unemployed: No Education: High School Diploma/GED Difficulty w/ Childcare or Family Care: No Living arrangements: alone Additional living arrangements comments: Occupation/Education: occupation Spiritual care concerns: No Agree to blood products: Yes Meds Home Medications and Allergies Home Medications ?Medication ?Instructions ?Recorded ?Confirmed ?Type latanoprost (PF) 0.005 % eye drops 1 drop ophthalmic (eye) DAILY 07/18/19 05/22/25 History albuterol sulfate 90 mcg/actuation 1 - 2 puff inhalation Q4-6H PRN 11/21/22 05/08/25 Rx aerosol inhaler (ProAir HFA) shortness of breath or wheezing #8.5 grams fluticasone furoate 100 See Rx Instructions .Route 06/09/24 05/22/25 Rx mcg-vilanterol 25 mcg/dose .COMPLEX #180 ea inhalation powder apixaban 5 mg tablet (Eliquis) 5 mg PO BID #180 tabs 08/23/24 05/22/25 Rx tolterodine 4 mg capsule,extended 4 mg PO DAILY #90 caps 08/23/24 05/22/25 Rx release 24 hr (Detrol LA) dicyclomine 20 mg tablet 20 mg PO TID #270 tabs 03/27/25 05/22/25 Rx pantoprazole 40 mg tablet,delayed 40 mg PO QAM #30 tabs 04/17/25 05/22/25 Rx release Allergies Allergy/AdvReac Type Severity Reaction Status Date / Time adhesive tape Allergy Unknown BLISTERS/ Verified 05/22/25 11:10 SKIN PEELING OFF morphine Allergy Itching Verified 05/22/25 11:10 meperidine AdvReac Unknown Rash Verified 05/22/25 11:10 Vital Signs Vital Signs - 24 hr 05/22/25 11:11 Temperature 97.2 F L Pulse Rate 82 Respiratory Rate 16 Blood Pressure 164/90 H Pulse Oximetry 98 Oxygen Delivery Room Air Exam Const: General: cooperative and healthy appearing Resp: Effort & Inspection: normal respiratory effort and able to speak in complete sentences Auscultation: clear to auscultation bilaterally Cardio: Rate: regular rate Rhythm: regular rhythm GI: Inspection: normal to inspection GI Palp: No No hepatosplenomegaly present Auscultation: normal bowel sounds Rectal Exam: deferred Skin: General skin exam: normal color Psych: Appearance: grossly normal Mental Status: mental status grossly normal Assessment and Plan Assessment and plan (1) GERD (gastroesophageal reflux disease): Qualifiers: Esophagitis presence: without esophagitis Qualified Code(s): K21.9 - Gastro-esophageal reflux disease without esophagitis Code(s): K21.9 - Gastro-esophageal reflux disease without esophagitis Status: Acute Assessment and Plan: The patient is deemed a good candidate for the procedure. Consent signed. Will proceed.
--- NOTE | 2025-05-22 12:32 | S_PTH ---
PATIENT: Mike Schwarz LOC: [facility] U#:[id number] AGE/SX: 64/M ROOM: RE05/22/[address]: Musa Castillo MD : 1960 BED: DIS: 05/22/2025 SPEC #: [id number] RECD: 05/22/25 13:16 STATUS: ASHA REQ #: [id number] PAT: 05/22/25 12:[address]: Muas Castillo DEPT: [facility] Surgical RECD BY: Natalie Ballard ENTERED: 05/22/25 13:16 SP TYPE: Surgical OTHR DR: Kiesha Marino, KAVON Tissues: A - Gastric Biopsy B - Gastric Biopsy Procedures: Hematoxylin and Eosin Stain Gross and Microscopic Level 4
[2025-05-22 12:35] VITALS: BP 120/78; PULSE 81; RESP 17; O2SAT 99
[2025-05-22 12:45] VITALS: BP 121/78; PULSE 76; RESP 18; O2SAT 99
[2025-05-22 12:55] VITALS: BP 133/80; PULSE 73; RESP 17; O2SAT 99
== END 2025-05-22 13:10 | disposition home or self-care (01) ==
PROVIDERS: PCP Nurse Practitioner Family; Visit Provider Internal Medicine Gastroenterology
PROC: 0DJ08ZZ Inspection of Upper Intestinal Tract, Via Natural or Artificial Opening Endoscopic (ICD-10-PCS; CPT 43239; principal; 2025-05-22 12:30)
DX: K21.00 Gastro-esophageal reflux disease with esophagitis, without bleeding (principal); K29.20 Alcoholic gastritis without bleeding; K44.9 Diaphragmatic hernia without obstruction or gangrene; K58.9 Irritable bowel syndrome, unspecified; E78.5 Hyperlipidemia, unspecified; N32.81 Overactive bladder; Z79.51 Long term (current) use of inhaled steroids; Z79.01 Long term (current) use of anticoagulants; Z98.890 Other specified postprocedural states; Z90.49 Acquired absence of other specified parts of digestive tract; Z87.891 Personal history of nicotine dependence; Z85.46 Personal history of malignant neoplasm of prostate; Z87.19 Personal history of other diseases of the digestive system; Z80.0 Family history of malignant neoplasm of digestive organs; Z82.49 Family history of ischemic heart disease and other diseases of the circulatory system
CPT/HCPCS: 43239; 88305; J2003; J2704; J7120

== ENCOUNTER 2025-07-03 07:49 | Outpatient (CLI) | payer OTHER, SELFPAY ==
--- OUTSIDE RECORDS SUMMARY | 2025-07-03 07:53 | XMS_ITS | Clinical Summary ---
Author Organization [facility] Address [address] [place] [address] Care Team Providers Care Salesperson Driver Name Role Phone Willi Lopez MD Primary Care Provider Allergies Active Allergy Reactions Criticality Noted Date [...] Vaccines (1 of 2) 2011 PHQ-2 (Physician [place]) 08/24/2024 02/09/2024 COVID-19 Vaccine (1 - 2024-2 6 season) 2025 Influenza Adult (#1) 2025 Colorectal Cancer Screening Flex Sig (5 Years) 04/05/2029 04/05/2024 RSV Immunization or 60+ Years (1 - 1-dose 75+ series) 2036 Hepatitis A Vaccines Aged Out No long er eligible based on patient's age to complete this topic Meningococcal B Vaccine Aged Out No l onger eligible based on patient's age to complete this topic Meningococcal Vaccine Aged Out No alexi michele eligible based on patient's age to complete this topic RSV Immunizations Under 20 Months Aged Out No longer eligible based on patient's age to complete this topic Insurance [facility] Care Teams Salesperson Driver Relationship Specialty Start Date End Date Willi Lopez MD PCP - General 10/14/13
--- OUTSIDE RECORDS SUMMARY | 2025-07-03 07:53 | XMS_ITS | Clinical Summary ---
Author Organization [facility] Address [address] [place] [address] Care Team Providers Care Science Technicians Name Role Phone Willi Lopez MD Primary Care Provider [phone] Corina Chacko RN Unavailable [phone] Source Comments [facility] Affiliates and Associated Physician Practices is amultiple site organization consisting of ambulatory clinics and hospital sitesin [place], [place], [place] and [place]. This disclosure is being madepursuant to the Care Everywhere program and may not contain all information available regarding this patient. 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 Gender Identity Not on file Sexual Orientation [...] patient's age to complete this topic Insurance [facility] CARE SELF PAY NO INSURANCE Member Subscriber Plan / Payer (Ef fective for All Dates) Name:Yosef Schwarz Member ID:Not on file Relation to Subscriber:Not on file Name:YOSEF SCHWARZ Subscriber ID:Not on file (Home) Address: [place] [address] Payer ID:Not on file Group ID:Not on file Type:Self Pay Address: [facility] Advance Directives * Full Code (Latest Code Status on File) Date Activated Date Inactivated Comments 02/08/2015 12:55 AM 02/09/2015 6:57 PM Care Teams Science Technicians Relationship Specialty Start Date End Date Willi Lopez MD [address] [place] [address] PCP - General Internal Medicine 02/07/15 Corina Chacko RN Marketing Director Assisted Living 02/08/15
== END 2025-07-03 07:50 | disposition home or self-care (01) ==
LOC: ANHAUDASC 07:52
PROVIDERS: PCP Nurse Practitioner Family; Visit Provider Otolaryngology Otolaryngology/Facial Plastic Surgery
DX: H90.3 Sensorineural hearing loss, bilateral (principal)
CPT/HCPCS: 92557; 92567

== ENCOUNTER 2025-07-12 16:58 | Emergency (ER) | payer OTHER, SELFPAY ==
[2025-07-12 17:23] VITALS: BP 154/98; PULSE 104; RESP 17; TEMP 36.6; O2SAT 97
--- NOTE | 2025-07-12 19:30 | ED.EXTPRO ---
HPI - Extremity Problem General Chief complaint: Extremity Problem,Nontraumatic Stated complaint: swollen feet Time Seen by Provider: 07/12/25 18:58 Source: patient Mode of arrival: ambulatory Limitations: no limitations History of Present Illness HPI Narrative: this is a 64-year-old male with history of PE no longer on Eliquis who presents to the ED for leg swelling. Patient states that he woke up this morning and had bilateral lower leg swelling up to the ankles. He has never had this before. He denies chest pain, shortness of breath. He states that he was taken off the Eliquis for a partial colectomy in December but never restarted it as he was unable to fill the script. He was advised to follow-up with Hematology but he never did that either. Related Data Home Medications ?Medication ?Instructions ?Recorded ?Confirmed ?Last Taken ?Type latanoprost (PF) 0.005 % eye drops 1 drop ophthalmic (eye) DAILY 07/18/19 06/12/25 05/21/25 History Allergies Allergy/AdvReac Type Severity Reaction Status Date / Time adhesive tape Allergy Unknown BLISTERS/ Verified 06/12/25 13:00 SKIN PEELING OFF morphine Allergy Itching Verified 06/12/25 13:00 meperidine AdvReac Unknown Rash Verified 06/12/25 13:00 Review of Systems Review of Systems: Gen.: Denies fevers or chills Eyes: Denies eye pain or visual change ENT: Denies congestion Respiratory: Denies shortness of breath or cough CV: Denies chest pain or palpitations GI: Denies abdominal pain nausea, emesis or diarrhea denies burning, urgency, frequency or hematuria Musculoskeletal: Denies back pain or muscle pain Neuro: Denies numbness, tingling, weakness or focal weakness Skin: Denies rash Except as documented, all other systems reviewed and negative [facility] Past Medical History Medical History Dysphagia, oropharyngeal phase Tobacco dependence Diverticulitis Irritable bowel syndrome Dyslipidemia Overactive bladder Prostate cancer Prostatectomy 2008, with recurrence 2011-treated with radiation Lung nodules Surgical History Surgical History History of colectomy 01/10/25 Laparoscopic sigmoid colectomy with colorectal anastomosis, da Yamil assisted Dr. Storm History of prostatectomy (2008) History of colonoscopy History of inguinal hernia repair Family History Family History Mother Hypertension Carcinoma of colon, Onset Age: 73 Family history of primary malignant neoplasm of liver Sibling , CVA occurred with CABG Hypertension Family history of diabetes mellitus in first degree relative Family history of renal failure Diabetes mellitus Family history of kidney disease Cerebrovascular accident Father Cerebrovascular accident Acute myocardial infarction Diabetes mellitus Social History Social History Social History: 01/02/25 very confident with medical forms 03/08/25 Patient declined SDOH Surrogate medical decision maker: Trinity Hager, spouse. Code status: Do not resuscitate. Smoking packs per day: 1 Smoking cigarettes per day: 20.0 Years smoked: 40 Smoking pack-years: 40.00 Smoking status: Former smoker Tobacco type: cigarettes Second hand tobacco smoke exposure: Yes Alcohol intake: current Drinks per week: 2 Substance use: never Substance use type: does not use Do You Feel Safe in your Home?: Yes Lack of Transportation: No Lack of Food: Never True Current Housing: I Have Housing Concerned About Future Housing: No Difficulty Paying Gas/Electric Bills: No Difficulty Paying for Meds: No Currently Unemployed: No Education: High School Diploma/GED Difficulty w/ Childcare or Family Care: No Living arrangements: alone Additional living arrangements comments: Occupation/Education: occupation Spiritual care concerns: No Agree to blood products: Yes Exam Narrative: APPEARANCE: No acute distress, nontoxic, resting in bed EYES: EOMI HEENT: Normocephalic, atraumatic, OMM RESPIRATORY: No respiratory distress Clear to auscultation bilaterally with no rhonchi wheezing or rales. CARDIOVASCULAR: Regular rate and rhythm without murmurs rubs or gallops. ABDOMINAL: Soft, nontender, nondistended, no rebound or guarding MUSCULOSKELETAl: Moves all extremities. 2+ pitting edema to the bilateral lower extremities up to the ankles NEURO: Awake and alert. Following commands, speech normal, no focal deficits SKIN:: Warm, dry. No rashes lesions or abrasions PSYCHIATRIC: Normal affect/mood, Course Vital Signs Vital signs: Vital Signs Temperature 97.8 F 07/12/25 17:23 Pulse Rate 104 H 11/19/25 17:23 Respiratory Rate 17 07/12/25 17:23 Blood Pressure 154/98 H 07/12/25 17:23 Pulse Oximetry 97 07/12/25 17:23 Oxygen Delivery Room Air 07/12/25 17:23 Temperature 97.8 F 07/12/25 17:23 Pulse Rate 100 07/12/25 19:45 Respiratory Rate 22 H 07/12/25 19:45 Blood Pressure 150/82 H 07/12/25 19:45 Pulse Oximetry 94 07/12/25 19:45 Oxygen Delivery Room Air 07/12/25 17:23 MDM - Extremity (Nontraumatic) MDM Narrative Medical decision making narrative: 64-year-old male Presenting for bilateral leg swelling. On initial evaluation patient was in no acute distress afebrile, hemodynamic stable. Differentials include but are not limited to: DVT, CHF, peripheral edema, cellulitis Notable exam findings: 2+ pitting edema to the bilateral lower extremities up to the level of the ankles Patient has a previous history of PE and abdominal thrombus and was supposed to be on Eliquis but stopped this after a surgery in December so he has not been on it for few months. Based on his history he is likely supposed to be on Eliquis at baseline. His symptoms are unlikely due to a DVT MRI likely due to a peripheral edema, however, given his history he will be given a dose of Lovenox and scheduled for an ultrasound tomorrow off. He was given a referral to Dr. Wu, hematology, to establish care and to further discuss his need for Eliquis. Patient was agreeable to this plan. Given strict return precautions. Medical Records Attestation: I reviewed the patient's medical records. Discharge Plan Discharge Clinical Impression: Leg edema Patient Disposition: Home Condition: Stable Instructions: Antibiotic Form, Leg Edema (ED) Additional Instructions: You were given a shot of a blood thinner here in case you do have a DVT. He was scheduled for ultrasound tomorrow morning at 7:30 a.m.. Your given a prescription for Eliquis to take if you are found to have a DVT. Your given a referral to Dr. Wu, hematology, follow-up with his office in the next week for re-evaluation. Return to the ED for any new or worsening symptoms. Patient Language: Armenian Prescriptions: New Eliquis 5 mg tablet See Rx Instructions .ROUTE .COMPLEX Qty: 70 0RF Rx Instructions: 5 mg orally ;Take 2 tablets twice daily for 1 week then 1 tablet twice daily for 23 days No Action latanoprost (PF) 0.005 % drops 1 drop EACH EYE DAILY Eliquis 5 mg tablet 5 mg PO BID Qty: 180 0RF Patient Comments: HOLD [address] Storm pantoprazole 40 mg tablet,delayed release (DR/EC) 40 mg PO QAM Qty: 90 2RF Rx Instructions: 3 month supply if insurance improved famotidine 40 mg tablet 40 mg PO QHS Qty: 90 2RF Rx Instructions: 3 month supply if approved albuterol sulfate [ProAir HFA] 90 mcg/actuation HFA aerosol inhaler 1 - 2 puff INHALATION Q4-6H PRN (Reason: shortness of breath or wheezing) Qty: 8.5 5RF dicyclomine 20 mg tablet 20 mg PO TID Qty: 270 0RF fluticasone furoate-vilanterol 100-25 mcg/dose blister with device See Rx Instructions .ROUTE .COMPLEX Qty: 180 2RF Dose Instruction: USE PUFF EVERY DAY. RINSE MOUTH WITH WATER AND SPIT AFTER EACH USE Rx Instructions: USE PUFF EVERY DAY. RINSE MOUTH WITH WATER AND SPIT AFTER EACH USE fluticasone propionate [Allergy Relief (fluticasone)] 50 mcg/actuation spray,suspension 2 spray intranasal DAILY 30 Days Qty: 16 2RF Rx Instructions: administer into each nostril tolterodine [Detrol LA] 4 mg capsule,extended release 24hr 4 mg PO DAILY Qty: 90 1RF Other Ambulatory Orders: US venous dop w reflux LE BI (Routine) Timeframe: 1 Day Location: Determined by Patient Ordered By: Alfredo Estevez Follow-up/Referrals: Uziel Wu MD [Physician, Hematology] Kiesha Marino APRN [Primary Care Provider, Family Practice]
[2025-07-12] MEDS: ENOXAPARIN 120 MG/0.8 ML SYRINGE SUB-Q (19:43)
[2025-07-12 19:45] VITALS: BP 150/82; PULSE 100; RESP 22; O2SAT 94
--- OUTSIDE RECORDS SUMMARY | 2025-07-13 00:38 | XMS_ITS | Clinical Summary ---
Author Organization [facility] Address [address] [place] [address] Care Team Providers Care Front End Driver Name Role Phone Willi Lopez MD Primary Care Provider [phone] Allergies Active Allergy Reactions Criticality Noted Date [...] Vaccines (1 of 2) 2011 PHQ-2 (Physician [place]) 08/24/2024 02/09/2024 COVID-19 Vaccine (1 - 2024-2 [...] patient's age to complete this topic Insurance [facility] Care Teams Front End Driver Relationship Specialty Start Date End Date Willi Lopez MD PCP - General 10/14/13
--- OUTSIDE RECORDS SUMMARY | 2025-07-13 00:38 | XMS_ITS | Clinical Summary ---
Author Organization [facility] Address [address] [place] [address] Care Team Providers Care Hydrometer Calibrator Name Role Phone Willi Lopez MD Primary Care Provider [phone] Corina Chacko RN Unavailable [phone] Source Comments [facility] Affiliates and Associated Physician Practices is amultiple site organization consisting of ambulatory clinics and hospital sitesin [place], [place], [place] and [place]. This disclosure is being madepursuant to the Care Everywhere program and may not contain all information available regarding this patient. 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 Gender Identity Not on file Sexual Orientation [...] patient's age to complete this topic Insurance [facility] CARE SELF PAY NO INSURANCE Member Subscriber Plan / Payer (Ef fective for All Dates) Name:Yosef Schwarz Member ID:Not on file Relation to Subscriber:Not on file Name:YOSEF SCHWARZ Subscriber ID:Not on file (Home) Address: [place] [address] Payer ID:Not on file Group ID:Not on file Type:Self Pay [facility] Advance Directives * Full Code (Latest Code Status on File) Date Activated Date Inactivated Comments 02/08/2015 12:55 AM 02/09/2015 6:57 PM Care Teams Hydrometer Calibrator Relationship Specialty Start Date End Date Willi Lopez MD [address] [place] [address] PCP - General Internal Medicine 02/07/15 Corina Chacko RN Dry Cleaner Helper 02/08/15
== END 2025-07-12 19:59 | disposition home or self-care (01) ==
LOC: ANHED 19:47
PROVIDERS: Emergency Provider Student in an Organized Health Care Education/Training Program; PCP Nurse Practitioner Family
DX: R60.0 Localized edema (principal); E78.2 Mixed hyperlipidemia; Z85.46 Personal history of malignant neoplasm of prostate; Z90.79 Acquired absence of other genital organ(s); Z87.891 Personal history of nicotine dependence
CPT/HCPCS: 96372; 99283; J1650

== ENCOUNTER 2025-07-13 07:54 | Outpatient (CLI) | payer OTHER, SELFPAY ==
--- NOTE | ~2025-07-13 | US_ITS ---
EXAMINATION: US venous doppler [facility] DATE: 07/13/2025 08:59 INDICATION: Edema and swelling TECHNIQUE: Grayscale ultrasound images without and with compression and Doppler ultrasound images of the bilateral lower extremity veins were obtained. COMPARISON: None. FINDINGS: The visualized portions of right common femoral vein, profunda (deep) femoral vein, femoral vein, popliteal vein, peroneal veins, posterior tibial veins, and greater saphenous vein outflow are patent. The visualized portions of left common femoral vein, profunda femoral vein, femoral vein, popliteal vein, peroneal veins, posterior tibial veins, and greater saphenous vein outflow are patent. IMPRESSION: 1. No deep venous thrombosis identified in either right or left lower extremity. Reviewed, dictated and finalized at location A. MECHANIC IMPRESSION: 1. No deep venous thrombosis identified in either right or left lower extremit y.
== END 2025-07-13 07:55 | disposition home or self-care (01) ==
PROVIDERS: PCP Nurse Practitioner Family; Visit Provider Student in an Organized Health Care Education/Training Program
DX: R60.0 Localized edema (principal)
CPT/HCPCS: 93970